=== PATIENT | female | born 1970 | race Caucasian/White ===

== ENCOUNTER → 2017-01-26 | Outpatient (CLI) | payer OTHER ==
--- NOTE | 2017-01-26 16:15 | US ---
EXAMINATION TYPE: US transvaginal DATE OF EXAM: 01/26/2017 2:50 PM COMPARISON: NONE CLINICAL HISTORY: R10.2 Pelvic/perineal Pain,. Hysterectomy, RLQ TECHNIQUE: TV Date of LMP: unknown EXAM MEASUREMENTS: Right Ovary: 2.3 x 1.8 x 1.7cm Left Ovary: 3.8 x 3.0 x 2.4cm TECHNOLOGIST IMPRESSION: 1. Uterus: surgically absent 2. Endometrium: surgically absent 3. Right Ovary: 1.4cm simple cyst seen 4. Left Ovary: 2.3cm septated cyst seen 5. Bilateral Adnexa: wnl 6. Posterior cul-de-sac: wnl Uterus is surgically absent. No free fluid is seen in pelvic cul-de-sac. Both ovaries are identified. Within left ovary there is 2.4 x 2.3 x 2.2 cm cyst with thin septation. No suspicious solid nodularity or vascularity is present. There is more simple 1.4 cm cyst in the pe riphery of the right ovary. IMPRESSION: A 2.4 cm thin septated cyst left ovary is noted.
--- NOTE | 2017-01-28 11:00 | MM ---
Reason for exam: clinical finding. Last mammogram was performed 6 months ago. History: Patient history of breast cancer and history of other cancer. Family history of breast cancer in grandmother, breast cancer in grandmother at age 58, and breast cancer in mother at age 38. Cyst aspiration of both breasts, August 07, 2016. Lumpectomy of the right breast, 2006. Excisional biopsy of the left breast, 1989. Physical Findings: Nurse Summary: 0.5-1cm nodule in the right breast at 12 o'clock and 8 o'clock at nipple, and a 0.5-1.5cm nodule in the left breast at 12 o'clock, 3 o'clock and 8 o'clock (nurse kp). [facility] Mammo w CAD [facility] Bilateral CC and MLO view(s) were taken. Prior study comparison: July 21, 2016, mammogram, performed at [facility]. July 21, 2016, ultrasound. The breast tissue is extremely dense which could obscure a lesion on mammography. Previous mammotome biopsy in the right breast. Multiple BB's appear to correspond to previous nodules, no increase in size in nodules. No significant new findings when compared with previous films. These results were verbally communicated with the patient on 01/28/17. ASSESSMENT: Benign, BI-RAD 2 RECOMMENDATION: Ultrasound of both breasts in 3 months.
--- NOTE | 2017-01-28 11:08 | USB ---
Reason for exam: clinical finding. History: Patient history of breast cancer and history of other cancer. Family history of breast cancer in grandmother, breast cancer in grandmother at age 58, and breast cancer in mother at age 38. Cyst aspiration of both breasts, August 07, 2016. Lumpectomy of the right breast, 2006. Excisional biopsy of the left breast, 1989. US Breast BILAT Right breast ultrasound including all four quadrants, the retroareolar region and axilla demonstrates several cystic lesions measuring 0.4 x 0.4 x 0.4cm at 2 o'clock, 0.3 x 0.3 x 0.2cm at 3 o'clock, 0.5 x 0.5 x 0.3cm at 5 o'clock, 0.8 x 1.2 x 0.4cm at 6 o'clock with septation, 0.2 x .3 x 0.2cm at 10 o'clock, 0.4 x 0.4 x 0.4cm at the nipple and a 0.7 x 0.5 x 0.6cm mixed, cystic lesion at the nipple for which a follow up is recommended. Left breast ultrasound including all four quadrants, the retroareolar region and axilla demonstrates several cystic lesions measuring 0.7 x 0.6 x 0.4cm at 1 o'clock with septation, 0.5 x 0.5 x 0.5cm at 1 o'clock, 2.4 x 1.3 x 1.0cm at 2 o'clock with cluster, 1.0 x 0.6 x 0.5cm at 3 o'clock, 0.6 0.6 x 0.4cm at 4 o'clock, 0.7 x 0.7 x 0.4cm at 7 o'clock with septation, 0.8 x 0.7 x 0.7cm at 9 o'clock, 0.7 x 0.9 x 0.4cm, complex, 1.3 x 1.3 x 0.9cm at 11 o'clock and a 0.9 x 0.9 x 0.7cm mixed lesion at 10 o'clock. These results were verbally communicated with the patient on 01/28/17. ASSESSMENT: Probably benign, BI-RAD 3 RECOMMENDATION: Ultrasound of both breasts in 3 months.
== END ==
LOC: RADMAMWWP 13:16
PROVIDERS: ATTEND Family Medicine
DX: N63 Unspecified lump in breast (principal); N83.202 Unspecified ovarian cyst, left side
CPT/HCPCS: 76830; 76641; G0204

== ENCOUNTER → 2017-05-01 | Outpatient (CLI) | payer OTHER ==
--- NOTE | 2017-05-01 08:36 | US ---
EXAMINATION TYPE: US transvaginal DATE OF EXAM: 05/01/2017 COMPARISON: Previous study dated 01/26/2017. CLINICAL HISTORY: N83.202 OVARIAN CYST. Hysterectomy, known ovarian cysts, on Tamoxifen, LLQ pain TECHNIQUE: TV Date of LMP: unknown EXAM MEASUREMENTS: Right Ovary: 2.9 x 1.9 x 1.9 cm Left Ovary: 3.0 x 2.5 x 2.1 cm 1. Uterus: surgically absent 2. Endometrium: Surgically absent 3. Right Ovary: 1.6cm simple cyst seen. Previously measured 1.4 cm. 4. Left Ovary: 2.3cm simple cyst seen. Previously measured 2.3 cm but was septated 5. Bilateral Adnexa: wnl 6. Posterior cul-de-sac: wnl IMPRESSION: 1. STATUS POST PARTIAL HYSTERECTOMY. 2. BILATERAL OVARIAN CYSTS.
--- NOTE | 2017-05-04 07:05 | USB ---
Reason for exam: clinical finding. History: Patient history of breast cancer and history of other cancer. Family history of breast cancer in grandmother, breast cancer in grandmother at age 58, and breast cancer in mother at age 38. Cyst aspiration of both breasts, August 07, 2016. Lumpectomy of the right breast, 2006. Excisional biopsy of the left breast, 1989. Indicated problem(s): palpable abnormality in both breasts. Physical Findings: Nurse Summary: A 0.5-1cm palpable in the left breast at 6:30, 7, 9, 12 o'clock and nipple, right breast at 6, 9:30, 11:30, 1 o'clock and nipple (nurse dw). US Breast BILAT Right breast ultrasound includes all four quadrants, the retroareolar region and axilla. Finding demonstrate a 0.6 x 1.1 x 0.4cm mixed lesion at 5 o'clock. Left breast ultrasound includes all four quadrants, the retroareolar region and axilla. Finding demonstrate a 0.7 x 0.6 x 0.5cm oval, cystic lesion at 3 o'clock, a 0.6 x 0.6 x 0.4cm oval cystic lesion at 5 o'clock, a 0.7 x 0.7 x 0.7cm oval mixed lesion at 9 o'clock, a 1.1 x 1.2 x 0.9cm oval mixed lesion at 10 o'clock, a 0.8 x 0.8 x 0.5cm oval lesion at 11 o'clock and multiple cysts posterior nipple. These results were verbally communicated with the patient and result sheet given to the patient on 05/01/17. ASSESSMENT: Incomplete: need additional imaging evaluation, BI-RAD 0 RECOMMENDATION: Breast MRI of both breasts.
== END | disposition home or self-care (01) ==
LOC: RADUSWWP 06:47
PROVIDERS: ATTEND Family Medicine
DX: N83.201 Unspecified ovarian cyst, right side (principal); N83.202 Unspecified ovarian cyst, left side; N63 Unspecified lump in breast; R92.2 Inconclusive mammogram; Z90.710 Acquired absence of both cervix and uterus
CPT/HCPCS: 76830

== ENCOUNTER → 2017-05-21 | Outpatient (CLI) | payer OTHER ==
--- NOTE | 2017-05-22 13:35 | BMR ---
EXAMINATION TYPE: MR breast BILAT wo/w con DATE OF EXAM: 05/21/2017 COMPARISON: Ultrasound breast 05/01/2017, mammogram 01/26/2017 HISTORY: abn finding lump in breast Left TECHNIQUE: A series of fat and water weighted images in the long and short axis views of both breasts are obtained in conjunction with dynamic contrast MRI with subtraction technique. The patient was i njected with 14 mL intravenous MultiHance gadolinium contrast. Three-dimensional and additional pos tprocessing imaging is created on independent workstation and reviewed during official interpretation of this study. FINDINGS: Left breast: Multiple T2 hyperintense foci are present within the left breast varying sizes , the largest in the anterior breast at the 12:00 position of the left breast measures approximately 13 mm. In the central portion of the left breast there is an additional T2 hyperintense focus measuri ng 15 mm. Posterior breast shows T2 hyperintense focus measuring 14 mm. There are approximately 15-20 foci present. No lymphadenopathy. No internal mammary abnormal node evident. Intramammary node prese nt inferiorly and laterally. Fibroglandular elements noted. Right breast: Subareolar right breast shows a focus of masslike enhancement measuring approximately 6 mm, 1 cm from the nipple. Fibroglandular signal is present. There is no evident internal mammary or axillary adenopathy. Susceptibility artifact present from prior procedure in the outer breast. T2 hyp erintense foci present centrally compatible with cysts at 6:00. IMPRESSION: Left breast benign, BI-RADS 2 Right breast known carcinoma, BI-RADS 6, recommend second look ultrasound of the subareolar right kalin ast.
== END | disposition home or self-care (01) ==
LOC: RADMRIMAIN 09:16
PROVIDERS: ATTEND Physician Assistant
DX: C50.911 Malignant neoplasm of unspecified site of right female breast (principal); Z80.3 Family history of malignant neoplasm of breast; Z85.3 Personal history of malignant neoplasm of breast
CPT/HCPCS: 77059; 0159T; A9577

== ENCOUNTER → 2017-06-05 | Outpatient (CLI) | payer OTHER ==
--- NOTE | 2017-06-05 10:56 | USB ---
Reason for exam: additional evaluation requested from abnormal screening. History: Patient history of breast cancer and history of other cancer. Family history of breast cancer in grandmother, breast cancer in grandmother at age 58, and breast cancer in mother at age 38. Cyst aspiration of both breasts, August 07, 2016. Lumpectomy of the right breast, 2006. Excisional biopsy of the left breast, 1989. US Breast RT Right breast ultrasound includes all four quadrants, the retroareolar region and axilla. Finding demonstrates a 0.6 x 0.5 x 1.4cm oval, mixed lesion at 5 o' clock versus 8 x 4 x 12mm on 01/26/17 for which a 6 month follow up is recommended, a 0.5 x 0.5 x 0.4cm round to oval, hypoechoic lesion at the posterior nipple, this may correspond to the MRI finding and therefore, biopsy is recommended, an adjacent area that elongates into a fat lobule, and a 0.6 x 0.4 x 0.5cm oval, hypoechoic lesion at 6 o'clock, likely cystic. These results were verbally communicated with the patient and result sheet given to the patient on 06/05/17. ASSESSMENT: Suspicious, BI-RAD 4 RECOMMENDATION: Surgical consultation and ultrasound core biopsy of the right breast. (subareolar) which may correspond to the enhancing MRI finding. Called Dr. Sanchez with mammographic findings and has scheduled an appointment for the patient for 06/09/17 at 11:[address] Rolon. PRELIMINARY REPORT CALLED AND FAXED TO DR. ROLON ON 06/05/17/ANAND. LUNA
== END | disposition home or self-care (01) ==
LOC: RADUSWWP 08:36
PROVIDERS: ATTEND Family Medicine
DX: R92.8 Other abnormal and inconclusive findings on diagnostic imaging of breast (principal)

== ENCOUNTER → 2017-07-01 | Day surgery (SDC) | payer OTHER ==
[2017-07-01 11:50] VITALS: RESP 16; BMI 27.4
[2017-07-01 13:21] VITALS: BP 128/87; PULSE 74; TEMP 98.5
--- NOTE | 2017-07-01 15:20 | USB ---
EXAMINATION TYPE: US biopsy breast VAD RT, Postbiopsy diagnostic mammo RT wo CAD DATE OF EXAM: 07/01/2017 CLINICAL HISTORY: 47-year-old female referred for biopsy of abnormal MRI finding. TECHNIQUE: Ultrasound guided core biopsy of the right breast. COMPARISON: 06/05/2017, 05/21/2017, and 01/26/2017 FINDINGS: The procedure of ultrasound guided core biopsy was explained to the patient. Benefits, alt ernatives, and risks were discussed. An informed consent was then obtained. The tentative target area in the 12:00 subareolar region appeared even more cystic on the present exa m and was felt unlikely to correlate to the abnormal MRI finding. Additional scanning in the 6:00 subareolar region shows a 6 mm ovoid hypoechoic lesion which likely c orresponds to the MRI finding. This is targeted for biopsy. The patient was placed in supine positioning for imaging and for the procedure. The overlying skin w as prepped and draped in usual sterile fashion. Lidocaine was used as anesthetic into the skin and s ubcutaneous tissue up to area of concern in the breast. Under ultrasound guidance, a 13-gauge vacuum-assisted mammotome Elite biopsy gun device was used to o btain 3 core samples. Following this, a ribbon clip was left in lesion. The patient tolerated the procedure well without any immediate complication. The patient was kept in the radiology department for short stay after the procedure and then discharged home in stable condi tion. Postbiopsy mammogram shows ribbon clip in the subareolar region. IMPRESSION: Successful, uncomplicated ultrasound guided core biopsy of the 6 mm subareolar lesion which is felt t o correspond to the MRI abnormality. Full pathology results to follow. RECOMMENDATION: 1. Follow-up pathology. 2. In the event of benign results, follow-up right breast ultrasound in 6 months for the 5:00 lesion seen on 06/05/2017 ultrasound.
== END ==
LOC: RADUSWWP 11:19
PROVIDERS: ATTEND Surgery
DX: D24.1 Benign neoplasm of right breast (principal); N60.31 Fibrosclerosis of right breast; R92.8 Other abnormal and inconclusive findings on diagnostic imaging of breast; N60.21 Fibroadenosis of right breast; N64.89 Other specified disorders of breast; Z88.8 Allergy status to other drugs, medicaments and biological substances; Z91.041 Radiographic dye allergy status
CPT/HCPCS: 88305; 19083; G0206; A4648; J2001

== ENCOUNTER → 2018-01-04 | Outpatient (CLI) | payer BC ==
[2018-01-04 09:43] LABS: Anion Gap 12 mmol/L; Basophils # (A) 0.1 k/uL (0-0.2); Basophils % (A) 1 %; Blood Urea Nitrogen 16 mg/dL (7-17); Calcium 9.9 mg/dL (8.4-10.2); Carbon Dioxide 20 mmol/L (22-30); Chloride 106 mmol/L (98-107); Eosinophils # (A) 0.1 k/uL (0-0.7); Eosinophils % (A) 1 %; Glucose 119 mg/dL (74-99); HCT 49.2 % (34.0-46.0); HGB 15.1 gm/dL (11.4-16.0); Lymphocytes # (A) 2.2 k/uL (1.0-4.8); Lymphocytes % (A) 23 %; MCH 32.5 pg (25.0-35.0); MCHC 30.6 g/dL (31.0-37.0); MCV 106.2 fL (80.0-100.0); Macrocytosis Moderate; Mean Platelet Volume 7.1; Monocytes # (A) 0.6 k/uL (0-1.0); Monocytes % (A) 6 %; Neutrophils # (A) 6.5 k/uL (1.3-7.7); Neutrophils % (A) 67 %; Platelet Count 242 k/uL (150-450); Potassium 4.8 mmol/L (3.5-5.1); RBC 4.63 m/uL (3.80-5.40); RDW 12.7 % (11.5-15.5); Sodium 138 mmol/L (137-145); WBC 9.7 k/uL (3.8-10.6)
--- NOTE | 2018-01-04 09:45 | XR ---
EXAMINATION TYPE: XR chest 2V DATE OF EXAM: 01/04/2018 COMPARISON: NONE TECHNIQUE: PA and lateral views submitted. HISTORY: Presurgical FINDINGS: The lungs are clear and there is no pneumothorax, pleural effusion, or focal pneumonia. Arthropathy of the shoulders. Curvature the spine. No overt failure. Hyperinflation suggests COPD. Degenerative change of the spine. IMPRESSION: 1. No acute process.
[2018-01-04 09:52] LABS: INR 1.1 (<1.2); Partial Thromboplastin Time 23.5 sec (22.0-30.0); Prothrombin Time 10.7 sec (9.0-12.0)
[2018-01-04 10:04] LABS: Appearance,Urine Cloudy (Clear); Bacteria,Urine Rare /hpf; Bilirubin,Urine Negative (Negative); Blood,Urine Negative (Negative); Color,Urine Yellow; Glucose,Urine (UA) Negative (Negative); Hyaline Casts,Urine 36 /lpf (0-2); Ketones,Urine Trace (Negative); Leukocyte Esterase,Urine Negative (Negative); Mucus,Urine Rare /hpf; Nitrite,Urine Negative (Negative); PH, Urine 5.5 (5.0-8.0); Protein,Urine Trace (Negative); RBC,Urine 1 /hpf (0-5); Specific Gravity,Urine 1.016 (1.001-1.035); Squamous Epithelial Cell,Urine 6 /hpf (0-4); WBC,Urine 1 /hpf (0-5)
== END | disposition home or self-care (01) ==
LOC: LABWHC1 08:41
PROVIDERS: ATTEND Orthopaedic Surgery Orthopaedic Surgery of the Spine
DX: Z01.818 Encounter for other preprocedural examination (principal); Z01.812 Encounter for preprocedural laboratory examination; M43.10 Spondylolisthesis, site unspecified
CPT/HCPCS: 36415; 71046; 80048; 81001; 85025; 85610; 85730; 86850; 86900; 86901; 87070; 93005

== ENCOUNTER 2018-01-11 13:00 | Inpatient (IN) | payer BC, OTHER ==
[2018-01-04 11:36] VITALS: BMI 27.8
[2018-01-13] MEDS ORDERED: ceFAZolin IN SWFI 2 GM/20 ML SYRINGE IVP ONE (05:00)
[2018-01-13] MEDS ORDERED: BACITRACIN 50,000 UNIT, POLYMYXIN B 500,000 UNIT in SODIUM CHLORIDE 0.9% IRRIGATIO 1,00... IRRIGATION ONE (05:00)
[2018-01-13] MEDS ORDERED: LIDOCAINE 1% 20 ML VIAL (10MG/ML) FOR IV START INTRADERMA PRN (06:53)
[2018-01-13] MEDS ORDERED: ONDANSETRON 4 MG/2 ML VIAL IVP ONE (06:53)
[2018-01-13] MEDS ORDERED: SCOPOLAMINE 1.5MG/72HR PATCH TRANSDERM ONE (06:53)
[2018-01-13] MEDS: LACTATED RINGERS 1,000 ML IV SCH (10:53)
[2018-01-13] MEDS ORDERED: GLYCOPYRROLATE 0.2 MG/ML 2 ML VIAL ONE (13:07)
[2018-01-13] MEDS ORDERED: MIDAZOLAM 2 MG/2 ML VIAL ONE (13:07)
[2018-01-13] MEDS ORDERED: ePHEDrine SULFATE/0.9% NACL/PF 50 MG/5 ML SYRINGE IV ONE (13:07)
[2018-01-13] MEDS ORDERED: PROPOFOL 10 MG/ML 20 ML VIAL IV ONE (13:07)
[2018-01-13] MEDS ORDERED: KETAMINE 10 MG/ML 20 ML VIAL ONE (13:07)
[2018-01-13] MEDS ORDERED: SUCCINYLCHOLINE CHLORIDE 100 MG/5 ML SYR IV ONE (13:07)
[2018-01-13] MEDS ORDERED: NEOSTIGMINE 1 MG/ML 10 ML VIAL ONE (13:07)
[2018-01-13] MEDS ORDERED: HYDROmorphone (PF) 1 MG/ML ONE (13:07)
[2018-01-13] MEDS ORDERED: fentaNYL (PF) 50 MCG/ML 2 ML AMP ONE (13:07)
[2018-01-13] MEDS ORDERED: PHENYLEPHRINE-0.9% NACL SYG 1 MG/10 ML SYRINGE ONE (13:07)
[2018-01-13] MEDS ORDERED: ROCURONIUM BROMIDE 10 MG/ML 10 ML VIAL IV ONE (13:07)
[2018-01-13] MEDS ORDERED: LIDOCAINE 1% INJ 10MG/ML (20 ML MDV) ONE (13:07)
[2018-01-13] MEDS ORDERED: BUPIVACAINE (PF) 0.25% 30 ML VIAL SQ ONE (14:00)
[2018-01-13] MEDS ORDERED: GELATIN SPONGE,ABSORB (LARGE) 1 EACH SPONGE TOPICAL ONE (14:01)
[2018-01-13] MEDS ORDERED: THROMBIN (BOVINE) 5,000 UNIT VIAL TOPICAL ONE (14:01)
[2018-01-13] MEDS ORDERED: LACTATED RINGERS 1,000 ML IV ONE (15:13)
[2018-01-13] MEDS ORDERED: BENZOCAINE/MENTHOL LOZENG 1 EACH LOZENGE MUCOUS MEM PRN (16:01)
[2018-01-13] MEDS ORDERED: HYDROcodone/APAP 5-325MG 1 EACH TAB PO PRN (16:01)
[2018-01-13] MEDS ORDERED: DIAZEPAM 5 MG TAB PO PRN (16:01)
[2018-01-13] MEDS ORDERED: ONDANSETRON 4 MG/2 ML VIAL IVP PRN (16:01)
[2018-01-13] MEDS ORDERED: HYDROmorphone 0.5 MG/0.5 ML SYRINGE IVP PRN (16:01)
[2018-01-13] MEDS ORDERED: MAGNESIUM HYDROXIDE 2,400 MG/10 ML CUP PO PRN (16:01)
[2018-01-13] MEDS ORDERED: diphenhydrAMINE 25 MG CAP PO PRN (16:04)
--- NOTE | 2018-01-13 16:10 | P.OP ---
Date of Procedure: 01/13/18 Preoperative Diagnosis: Spondylolisthesis L4 5 grade 2 Spinal stenosis L4 5 Disc protrusion L4 5 Low back pain with lower extremity radiculopathy Postoperative Diagnosis: Same Anesthesia: GETA Pathology: none sent Condition: stable Disposition: PACU Description of Procedure: DESCRIPTION OF PROCEDURE(S): BRIEF OPERATIVE NOTE Preoperative Diagnosis: Grade 2 spondylolisthesis L4 5, spinal stenosis L4 5, disc protrusion L4 5, degenerative disc disease with low back pain and lower extremity Postoperative Diagnosis: Same Procedure: Laminectomy and decompression bilaterally L4 5 Minimally invasive Posterior decompression and facet fusion L4 5 Minimally invasive Transforaminal lumbar interbody fusion for a 360 fusion L4 5 Discectomy for decompression L4 5 Placement of interbody graft L4 5 Harvesting of bone marrow aspirate via The ankle at L4 Local autogenous bone grafting Use of Cell Saver Use of bone graft extenders Surgeon: Dr. Guardado Assistant Media Buyer: Lauro THORPE who is present throughout the entire the case persistence during positioning, dissection, exposure, visualization, and all crucial elements of the case as well as closure. Anesthesia: General anesthesia per Dr. Arce Estimated blood loss: Approximately 200 mL Complications: None apparent Components implanted: K2M Kirby minimally invasive pedicle screw system with 4 screws measuring 6.5 x 45 mm with 2 rods measuring 45 mm and one O[place]go interbody titanium cage with osteal Camp bone sponge and DBX bone fibers to supplemental local autogenous bone graft and bone marrow aspirate Disposition: To recovery room in good stable condition. OPERATIVE INDICATIONS The patient has had long-standing issues in their lower back and lower extremities. She is found have a dynamic spondylolisthesis at L4 5 with significant stenosis. These imaging findings correlated well with her low back and lower extremity symptoms. The patient has been through conservative treatment. She is not having prolonged benefit despite aggressive conservative treatment. We discussed various treatment options including surgery, and the patient wishes to proceed with surgery We discussed the risk, patient's alternatives and benefits of surgery including but not limited to, risk of bleeding risk of infection, risk of need for further surgery, risk of decreased , loss of motion, muscle function, malunion nonunion, hardware failure, nerve damage, paralysis, heart attack, blindness and . OPERATIVE SUMMARY After discussing all the risks, patient alternatives and benefits at length, the patient elected to proceed with surgical intervention, signed informed consent, and presented for their procedure. The patient was seen and examined in the preoperative holding area and the surgical site was marked. The patient was given antibiotics and brought to the operating room. The patient was sedated and intubated by anesthesia in standard fashion. The patient was positioned on to the operating room table in a prone position on the appropriate frame which was well-padded and well molded. We were careful to pad any bony prominences and pressure points. We were careful to maintain the patient's cervical spine and good neutral alignment and position throughout. The patient was prepped and draped in a normal standard fashion. An appropriate timeout and keystone protocol performed. We were able to proceed with the surgery. The local wound area was infiltrated with local anesthetic. I was able utilize C-arm guidance to establish appropriate position over the pedicles bilaterally at the appropriate levels at L4 5. With the appropriate levels confirmed was able to make small stab incisions over the appropriate pedicle sites bilaterally. Utilizing C-arm in his house able to establish a Jamshidi needle over the lateral aspect of the pedicle and advanced the trocar into the pedicle being careful not to breech superiorly inferiorly medially or laterally. Position was confirmed regularly with AP and lateral images on C- arm. I was able to establish the trocar into the pedicle appropriately into the posterior aspect of the vertebral body bilaterally at the appropriate levels. This was done at each of the pedicle positions and each of the vertebrae of L4 and 5. I was able place the guidewire into the trocar and into the vertebral body appropriately under C-arm guidance. Dissection was taken down over the wire to the appropriate starting position for the screw placed. The appropriate length screw was chosen, threaded over the guidewire and screwed appropriately into the pedicle and vertebral body under C-arm guidance in excellent alignment and position with good bony purchase. This is done at each of the screw sites at the appropriate levels of L4 and L5. With the screws intact I extended the incision to connect the screw hole sites on the most symptomatic side on the left. I dissected down to establish access over the pars and lamina to the base of the spinous process. I was able to expose the facet joint. The capsule the facet was taken down and showed some facet arthrosis at the joint. I was able to use a combination of curettes and Kerrison rongeurs and a high-speed drill to take down the facet joint and do a facetectomy. Partial laminectomy was also performed. I was able get excellent foraminal decompression and central decompression with undermining across midline to perform a laminectomy centrally and contralaterally. As able get good central decompression. The ligamentum flavum was taken down to further decompress centrally and at bilateral neural foramen at L4 and L5. I was able to expose the disc space and visualize the traversing nerve root. Note was made of some disc protrusion at the level causing further compression of the nerve root. I was able to establish a annulotomy at the appropriate level of L4 and L5 protecting soft tissue and neural structures. Note was made of some disc desiccation at the disc. I performed a complete discectomy with accommodation of curettes and rasps and scrapers. The discectomy allowed for further decompression as well. I was able get good endplate preparation at the disc space. I sized for the appropriate size interbody spacer protecting the soft tissue and neural structures. The wound was copiously irrigated and suctioned dry. There is no evidence of any dural tear or leak. I was able to pack the disc space with local autogenous bone graft as well as a small amount of bone graft which was also placed into the interbody cage itself. Protecting the soft tissue structures and neural structures I was able place the interbody cage in good alignment and good position with good fit and fill at the interbody space. His issues was confirmed with C-arm guidance. Good hemostasis maintained. There is no evidence of any dural tear or leak. The wound was irrigated and suctioned dry. With the hardware intact, intraoperative C-arm imaging was again taken which showed good alignment and position of the hardware at the appropriate levels at L4 and L5. We were then able to measure, contour and place the rods and appropriate hardware bilaterally. I was able to place capcrews, tighten them down, and torque them with the torque screwdriver appropriately. With this intact I was able to place the local autogenous bone graft with additional bone graft enhancer as necessary into the posterior lateral gutters and over the decorticated facet joints. I was able get good reduction of the listhesis at L4 5 with placement of the azucena. The remainder of the bone graft was placed over the facet joint on the contralateral side after taking down the facet joint capsule. With the bone graft intact, a stable construct, and good decompression at the appropriate levels, we were able to proceed with closure. Good hemostasis was maintained. There is no evidence of dural tear or leak. The fascia was closed for a watertight closure. he subcuticular tissue was closed with absorbable suture. The wound was cleaned and dried and dressed with the appropriate dressing. The drapes were broken down. The patient was gently rolled back onto their hospital bed being careful to maintain their cervical spine and good neutral alignment and position. They were woken up by anesthesia, extubated, and brought to the recovery room in good stable condition. The patient will be admitted to the hospital for appropriate postoperative care , medical management and monitoring. We will continue to follow them closely about the postoperative course.
[2018-01-13] MEDS ORDERED: diphenhydrAMINE 50 MG/ML 1 ML VIAL IVP ONE (16:28)
--- NOTE | 2018-01-13 16:37 | XR ---
Lumbar spine HISTORY: Lumbar fusion 2 intraoperative C-arm images document the procedure.
--- NOTE | 2018-01-13 16:38 | FL ---
Fluoroscopy HISTORY: Lumbar fusion 53 seconds fluoroscopy time supplied to the referring clinician. 2 intraoperative C-arm images docum ent the procedure. See dictated report from orthopedic surgery.
[2018-01-13] MEDS: HYDROmorphone 0.5 MG/0.5 ML SYRINGE IVP PRN ×4 (17:53→23:11)
[2018-01-13] MEDS ORDERED: ATORVASTATIN 20 MG TAB PO SCH (21:00)
[2018-01-13] MEDS ORDERED: CITALOPRAM HYDROBROMIDE 20 MG TAB PO SCH (21:00)
[2018-01-13] MEDS ORDERED: LISINOPRIL 10 MG TAB PO SCH (21:00)
[2018-01-13] MEDS ORDERED: TAMOXIFEN 10 MG TAB PO SCH (21:00)
[2018-01-13] MEDS: HYDROcodone/APAP 5-325MG 1 EACH TAB PO PRN (21:56)
[2018-01-13] MEDS: SODIUM CHLORIDE 0.9% 1,000 ML IV SCH (23:13)
[2018-01-14] MEDS ORDERED: LORazepam 0.5 MG TAB PO PRN (00:16)
[2018-01-14] MEDS: ceFAZolin IN SWFI 2 GM/20 ML SYRINGE IVP SCH ×2 (01:07→08:49)
[2018-01-14] MEDS: HYDROcodone/APAP 5-325MG 1 EACH TAB PO PRN ×2 (01:38→07:17)
[2018-01-14] MEDS: HYDROmorphone 0.5 MG/0.5 ML SYRINGE IVP PRN ×2 (04:25→08:46)
--- NOTE | 2018-01-14 04:58 | CONS ---
CONSULTATION DATE OF CONSULTATION: 01/12/18. REASON FOR CONSULTATION: Advice regarding hypertension, multiple medical issues requested by Dr. Guardado. HISTORY OF PRESENT ILLNESS: This is a 47-year-old woman with past medical history of hypertension, history of breast surgery, history of anxiety, depression being followed by Dr. Sanchez in the outpatient setting. The patient underwent a laminectomy decompression L4-[address] Guardado. There is no history of fever, rigors or chills. No history of headache, loss of consciousness, seizures at this time. PAST MEDICAL HISTORY: Hypertension, history of breast cancer, anxiety, depression, section. MEDICATIONS: Prior to admission include: 1. Diphenhydramine. 2. Benadryl 25 mg daily p.r.n. 3. Nolvadex 20 mg q.h.s. 4. Prinivil 10 mg q.h.s. 5. Motrin 800 mg daily p.r.n. 6. Celexa 20 mg daily. 7. Lipitor 20 mg. ALLERGIES: ARE IODINATED CONTRAST DYES AND FLEXERIL. FAMILY HISTORY: History of breast cancer in the family. SOCIAL HISTORY: History of smoking, history of THC. Occasional alcohol intake. REVIEW OF SYSTEMS: ENT: No diminished hearing or vision. Cardiovascular: No angina. No palpitations. Respiratory: No cough or hemoptysis. GI no nausea. no dysuria. Nervous system: No numbness, weakness. Allergy/Immunology: No asthma or hayfever. Musculoskeletal: As mentioned earlier. HEMATOLOGY/ONCOLOGY: No history of anemia. Endocrine: No history of diabetes or hypothyroidism. Constitutional: As mentioned earlier. Dermatology: Negative. Rheumatology: Negative. Psychiatric: As mentioned earlier. PHYSICAL EXAMINATION: Alert and oriented x3. Pulse is 94, blood pressure 103/56. Temp is normal. Pulse ox 98% on room air. HEENT conjunctivae normal. Oral mucosa moist. Neck is no jugular venous distention. No carotid bruit. No lymph node enlargement. Cardiovascular: S1, S2 muffled. Respiratory: Breath sounds diminished in the bases. No rhonchi. No crackles. ABDOMEN: Soft, nontender. No mass palpable. Legs are no edema. No swelling. Central nervous system: Higher functions as mentioned earlier. Moves all four extremities. No focal deficits. Lymphatics: No lymph nodes palpable in the neck, axillae or groin. Skin: No ulcer, rash or bleeding. Examination of the back status post surgery. LABS: MCV 106.2, glucose 119. UA was noted previously the preop labs. ASSESSMENT: 1. Status post lumbar laminectomy and decompression, bilateral L4-5. 2. Hypertension. 3. History of breast cancer. 4. History of juvenile asthma. 5. History of anxiety, depression. 6. History of nicotine dependence. 7. History of THC. RECOMMENDATION AND DISCUSSION: This 47-year-old woman who presented with multiple medical issues at this time we will monitor the patient closely. Continue the current medications, management and symptomatic treatment. Otherwise at this time I recommend continue with current medications. Incentive spirometry. DVT prophylaxis. I would also recommend Ativan p.r.n. for anxiety related symptoms. Otherwise I would recommend to follow the patient closely and recommend close follow up with Dr. Sanchez in the outpatient setting. We will follow the patient closely with you. Thank you Dr. Guardado for letting us participate in the care of this patient. MMODL / IJN: [id number] /
[2018-01-14] MEDS: SODIUM CHLORIDE 0.9% 1,000 ML IV SCH (07:11)
[2018-01-14] MEDS: LACTATED RINGERS 1,000 ML IV SCH (07:12)
[2018-01-14 07:24] LABS: Anion Gap 8 mmol/L; Blood Urea Nitrogen 8 mg/dL (7-17); Calcium 8.6 mg/dL (8.4-10.2); Carbon Dioxide 22 mmol/L (22-30); Chloride 102 mmol/L (98-107); Glucose 98 mg/dL (74-99); Potassium 3.7 mmol/L (3.5-5.1); Sodium 132 mmol/L (137-145)
[2018-01-14 07:30] LABS: Basophils # (A) 0.1 k/uL (0-0.2); Basophils % (A) 1 %; Eosinophils # (A) 0.1 k/uL (0-0.7); Eosinophils % (A) 1 %; HCT 37.6 % (34.0-46.0); Lymphocytes # (A) 1.9 k/uL (1.0-4.8); Lymphocytes % (A) 15 %; MCH 32.9 pg (25.0-35.0); MCHC 31.8 g/dL (31.0-37.0); MCV 103.5 fL (80.0-100.0); Macrocytosis Slight; Monocytes # (A) 0.4 k/uL (0-1.0); Monocytes % (A) 4 %; Neutrophils # (A) 9.8 k/uL (1.3-7.7); Neutrophils % (A) 78 %; Platelet Count 213 k/uL (150-450); RBC 3.63 m/uL (3.80-5.40); RDW 12.9 % (11.5-15.5); WBC 12.5 k/uL (3.8-10.6)
[2018-01-14 07:37] LABS: HGB 11.9 gm/dL (11.4-16.0)
[2018-01-14 07:54] VITALS: BP 106/64; PULSE 89; RESP 14; TEMP 98.6
[2018-01-14] MEDS ORDERED: SENNOSIDES-DOCUSATE SODIUM 1 EACH TAB PO SCH (09:00)
--- NOTE | 2018-01-14 10:02 | P.DS ---
Providers Date of admission: 01/13/18 10:03 Attending physician: Vito Guardado Consults: 01/13/18 16:01 Consult Physician Routine Consulting Provider: Danita Martinez Consult Reason/Comments: Medical management Do you want consulting provider notified?: Yes Primary care physician: Clarisse Randolph [facility] Course: The patient presented on the day of admission as per her operative note. She underwent lumbar decompression and fusion at L4 5 for her spondylolisthesis with spinal stenosis and lower extremity radiculopathy and back pain. She has been doing well today. She had some trouble sleeping but was a was able to get some sleep on and off through the night. She has been able to get up out of bed and has been able to ambulate independently to the bathroom. She has been able to void freely. She is tolerating her diet. Her pain is controlled with medication. Physical Exam The incision site is clean dry and intact. There is no erythema no drainage. There is no purulence no evidence of infection. There is some small drainage on the dressing but it is still sealed and does not appear to be actively draining. There is no erythema. Abdomen soft and nontender. Chest has good excursion with deep inspiration and expiration. The patient has active and passive range of motion intact at the upper and lower extremities. There is no acute change in neurologic status. She has sustained dorsal flexion plantar flexion and extensor hallucis longus intact. Hospital Course Postoperative day #1 status post minimally invasive decompression and fusion at L4 5 for her spondylolisthesis with spinal stenosis. The patient has been making very good progress postoperatively. They have completed the prophylactic antibiotics without any signs or symptoms of infection. The patient has been able to advance their diet, and is tolerating diet adequately. The pain was initially controlled with IV medications and is now controlled appropriately with oral medications. The patient has been able to increase their mobilization well overnight and this morning and she continued to make good improvement. The patient has progressed appropriately. I think they are in good stable condition for discharge today. They will be sent home with appropriate prescriptions. I answered their questions to the best of my ability in a language that they can understand and they are agreeable with the plan. They will follow up as directed in approximately 2 weeks or sooner if she is having any problems. Patient Condition at Discharge: Good Plan - Discharge Summary Discharge Rx Participant: Yes New Discharge Prescriptions: New Diazepam [Valium] 5 mg PO TID PRN #90 tab PRN Reason: Spasms Hydrocodone/Acetaminophen [Hydrocodon-Acetaminoph 7.5-325] 1 each PO Q8HR PRN #90 tablet PRN Reason: Severe Pain traMADol HCL [Ultram] 50 mg PO Q8HR PRN #90 tab PRN Reason: Pain No Action diphenhydrAMINE HCL [Benadryl] 25 mg PO DAILY PRN PRN Reason: Allergy Symptoms Ibuprofen [Motrin] 800 mg PO DAILY PRN PRN Reason: Pain Citalopram Hydrobromide [CeleXA] 20 mg PO HS Tamoxifen [Nolvadex] 20 mg PO HS Lisinopril [Prinivil] 10 mg PO HS Atorvastatin [Lipitor] 20 mg PO HS Discharge Medication List Citalopram Hydrobromide [CeleXA] 20 mg PO HS 06/05/17 [History] Ibuprofen [Motrin] 800 mg PO DAILY PRN 06/05/17 [History] Tamoxifen [Nolvadex] 20 mg PO HS 06/05/17 [History] diphenhydrAMINE HCL [Benadryl] 25 mg PO DAILY PRN 06/05/17 [History] Lisinopril [Prinivil] 10 mg PO HS 06/19/17 [History] Atorvastatin [Lipitor] 20 mg PO HS 01/11/18 [History] Diazepam [Valium] 5 mg PO TID PRN #90 tab 01/14/18 [Rx] Hydrocodone/Acetaminophen [Hydrocodon-Acetaminoph 7.5-325] 1 each PO Q8HR PRN # 90 tablet 01/14/18 [Rx] traMADol HCL [Ultram] 50 mg PO Q8HR PRN #90 tab 01/14/18 [Rx] Follow up Appointment(s)/Referral(s): Vito Guardado DO [Doctor of Osteopathic Medicine] - 2 Weeks (With Lauro Lara at Dr. Guardado's office) Activity/Diet/Wound Care/Special Instructions: Keep site clean. May shower with waterproof Tegaderm intact. Please give patient extra small gauze and large Tegaderm for dressing change if necessary for home. After showering on Thursday May remove dressing and leave area uncovered and then may shower with area uncovered, but leave Steri-Strips intact and allow them to fray off on their own. May ambulate to tolerance. No heavy or rigorous activity. No repetitive bending stooping or twisting. No lifting greater than 15 pounds. Discharge Disposition: HOME SELF-CARE
--- NOTE | 2018-01-14 17:38 | PN ---
PROGRESS NOTE DATE OF SERVICE: 01/14/2018 This 47-year-old woman who was admitted after lumbar laminectomy decompression, improving significantly. No chest pain. No palpitations. No fever. EXAM: Alert and oriented x3. Pulse 99, blood pressure 106/64, respirations 14, temp 98.2, pulse ox 99% on room air. HEENT: Conjunctivae normal. Oral mucosa moist. NECK: No jugular venous distention. No carotid bruits. No lymph node enlargement. CARDIOVASCULAR: S1, S2 muffled. RESPIRATORY: Breath sounds diminished in the bases. No rhonchi. No crackles. ABDOMEN: Soft, nontender. LEGS: No edema. No swelling. NERVOUS SYSTEM: No focal deficits. BACK: Status post surgery. LABS: At this time show WBC 12.5. ASSESSMENT: 1. Status post lumbar laminectomy, decompression at bilateral L4-5. 2. Increased WBC, possibly reactive. 3. Hypertension. 4. History of breast cancer. 5. History of juvenile asthma. 6. History of anxiety, depression. 7. History of nicotine dependence. 8. History of THC. RECOMMENDATIONS AND DISCUSSION: Recommend to continue current medical management and symptomatic treatment. Otherwise, resume the home medications. Closely follow with primary physician. The rest of the recommendations per Orthopedic Surgery. Further recommendations to follow. MMODL / IJN: [id number] /
[2018-01-14] MEDS ORDERED: ceFAZolin IN SWFI 2 GM/20 ML SYRINGE IVP SCH (21:00)
== END 2018-01-14 11:15 | disposition home or self-care (01) | DRG 455 ==
LOC: 2ORMAIN 01-13 10:03 → 3SUR 01-13 16:16
PROVIDERS: ADMIT Orthopaedic Surgery Orthopaedic Surgery of the Spine; ATTEND Orthopaedic Surgery Orthopaedic Surgery of the Spine
PROC: 0SG0071 Fusion of Lumbar Vertebral Joint with Autologous Tissue Substitute, Posterior Approach, Posterior Column, Open Approach (ICD-10-PCS; 2018-01-13)
PROC: 0ST20ZZ Resection of Lumbar Vertebral Disc, Open Approach (ICD-10-PCS; 2018-01-13)
PROC: 07DS3ZZ Extraction of Vertebral Bone Marrow, Percutaneous Approach (ICD-10-PCS; 2018-01-13)
PROC: 30233N0 Transfusion of Autologous Red Blood Cells into Peripheral Vein, Percutaneous Approach (ICD-10-PCS; 2018-01-13)
PROC: 0SG00AJ Fusion of Lumbar Vertebral Joint with Interbody Fusion Device, Posterior Approach, Anterior Column, Open Approach (ICD-10-PCS; principal; 2018-01-13 11:30)
DX: M43.16 Spondylolisthesis, lumbar region (principal); D49.6 Neoplasm of unspecified behavior of brain; M48.062 Spinal stenosis, lumbar region with neurogenic claudication; Z85.3 Personal history of malignant neoplasm of breast; M43.17 Spondylolisthesis, lumbosacral region; M51.16 Intervertebral disc disorders with radiculopathy, lumbar region; M51.17 Intervertebral disc disorders with radiculopathy, lumbosacral region; F17.210 Nicotine dependence, cigarettes, uncomplicated; I10 Essential (primary) hypertension; F32.9 Major depressive disorder, single episode, unspecified; F41.9 Anxiety disorder, unspecified; I49.3 Ventricular premature depolarization; R94.31 Abnormal electrocardiogram [ECG] [EKG]; Z88.8 Allergy status to other drugs, medicaments and biological substances; Z91.041 Radiographic dye allergy status; Z79.810 Long term (current) use of selective estrogen receptor modulators (SERMs); Z79.899 Other long term (current) drug therapy; Z71.3 Dietary counseling and surveillance; Z71.6 Tobacco abuse counseling
CPT/HCPCS: 72100; 80048; 85025; 86850; 86900; 86901

== ENCOUNTER → 2018-05-18 | Outpatient (CLI) | payer BC ==
--- NOTE | 2018-05-18 10:04 | MM ---
Reason for exam: follow-up at short interval from prior study. Last mammogram was performed 11 months ago. History: Patient has history of breast cancer at age 37 and history of other cancer. Family history of breast cancer in grandmother, breast cancer in grandmother at age 58, and breast cancer in mother at age 38. Benign US biopsy breast VAD RT of the right breast, July 01, 2017. Cyst aspiration of both breasts, August 07, 2016. Lumpectomy of the right breast, 2006. Excisional biopsy of the left breast, 1989. Taking antineoplastic for 1 year. Physical Findings: Nurse Summary: 0.5cm nodule in the right breast at 12 o'clock and a 0.5cm nodule in the lef tbreast at 12 o'clock/2 o'clock (nurse colby). [facility] Diagnostic Mammo w CAD [facility] Bilateral CC and MLO view(s) were taken. Prior study comparison: July 01, 2017, right breast MG diagnostic mammo RT wo CAD. January 26, 2017, bilateral MG diagnostic mammo w CAD [facility]. The breast tissue is heterogeneously dense. This may lower the sensitivity of mammography. Benign calcifications. There is chronic nodularity bilaterally. These results were verbally communicated with the patient and result sheet given to the patient on 05/18/18. ASSESSMENT: Incomplete: need additional imaging evaluation, BI-RAD 0 RECOMMENDATION: Ultrasound of both breasts. Manage patient on a clinical basis.
--- NOTE | 2018-05-18 10:07 | USB ---
Reason for exam: additional evaluation requested from abnormal screening. History: Patient has history of breast cancer at age 37 and history of other cancer. Family history of breast cancer in grandmother, breast cancer in grandmother at age 58, and breast cancer in mother at age 38. Benign US biopsy breast VAD RT of the right breast, July 01, 2017. Cyst aspiration of both breasts, August 07, 2016. Lumpectomy of the right breast, 2006. Excisional biopsy of the left breast, 1989. Taking antineoplastic for 1 year. US Breast BILAT Right complete breast ultrasound includes all four quadrants, the retroareolar region and axilla. Finding demonstrates a 0.5 x 0.3 x 0.5cm cystic cluster at 3 o'clock, a 0.4 x 0.5 x 0.4cm mixed lesion at 3 o'clock, a 0.5 x 0.3 x 0.4cm mixed lesion at 5 o'clock and a 0.4 x 0.4 x 0.4cm cystic lesion at 6 o'clock. Left complete breast ultrasound includes all four quadrants, the retroareolar region and axilla. Finding demonstrates a 0.7 x 0.4 x 0.6cm mixed lesion at 7 o'clock for which a 6 month follow up is recommended, a 0.9 x 0.8 x 0.8cm mixed lesion at 8 o'clock, a 0.9 x 0.7 x 1.0cm mixed lesion at 10 o'clock, a 0.8 x 0.5 x 0.7cm mixed lesion at 11 o'clock and multiple cysts at the posterior nipple. These results were verbally communicated with the patient and result sheet given to the patient on 05/18/18. ASSESSMENT: Probably benign, BI-RAD 3 RECOMMENDATION: Ultrasound of the left breast in 6 months. Manage patient on a clinical basis.
== END | disposition home or self-care (01) ==
LOC: RADMAMWWP 07:59
PROVIDERS: ATTEND Family Medicine
DX: R92.8 Other abnormal and inconclusive findings on diagnostic imaging of breast (principal); Z85.3 Personal history of malignant neoplasm of breast
CPT/HCPCS: 77066

== ENCOUNTER → 2018-12-06 | Outpatient (CLI) | payer BC ==
--- NOTE | 2018-12-09 13:31 | USB ---
Reason for exam: clinical finding. History: Patient has history of breast cancer at age 37 and history of other cancer. Brain cancer at age 10. Family history of breast cancer in mother at age 37, breast cancer in maternal grandmother at age 58, and premenopausal breast cancer in grandmother. Benign US biopsy breast VAD RT of the right breast, July 01, 2017. Cyst aspiration of both breasts, August 07, 2016. Lumpectomy of the right breast, 2006. Excisional biopsy of the left breast, 1989. Taking antineoplastic for 1 year. Indicated problem(s): lump or thickening in both breasts. Physical Findings: Patient complains of bilateral breast lumps, pain and discharge. 1 cm palpable lumps right 12 o'clock, left 1 o'clock.. US Breast Limited BILAT Right limited breast ultrasound including focal area of concern, retroareolar and axilla demonstrates at BB 12 o'clock dense tissue. Left complete breast ultrasound includes all four quadrants, the retroareolar region and axilla. Finding demonstrates a 0.7 x 0.8 x 0.9 cm mixed lesion at 10 o'clock, a 0.8 x 0.8 x 0.4 cm oval mixed lesion at 11 o'clock, a 1.8 x 1.6 x 1.2 cm cluster mixed lesion that the patient is symptomatic with pain at this location and an aspiration is recommended, a 1.6 x 1.1 x 0.8cm oval well circumscribed mixed lesion at 12 o'clock, a 0.7 x 0.6 x 0.3 cm oval well circumscribed cystic lesion at 3 o'clock, a 0.7 x 0.4 x 0.4 cm oval well circumscribed cystic lesion at 3 o'clock, a 0.9 x 1.1 x 0.8 cm oval well circumscribed mixed lesion at 8 o'clock , a 1.2 x 0.7 x 0.5 cm cluster well circumscribed mixed lesion at 9 o'clock these all appear similar to the 12 o'clock mass that will be aspirated. recommendation for these masses will be based on the aspiration results. These results were verbally communicated with the patient and result sheet given to the patient on 12/06/18. ASSESSMENT: Suspicious, BI-RAD 4 RECOMMENDATION: Aspiration of the left breast. Called Dr. Sanchez with mammographic findings and has scheduled an appointment for the patient for 01/06/19 at 10:[address] Mcintyre for the results of the aspiration. The left breast ultrasound aspiration is to be done on 12/15/18 at 1:00pm. PRELIMINARY REPORT CALLED AND FAXED TO DR. MCINTYRE ON 12/06/18.
== END ==
LOC: RADUSWWP 08:12
PROVIDERS: ATTEND Family Medicine
DX: R92.8 Other abnormal and inconclusive findings on diagnostic imaging of breast (principal)

== ENCOUNTER → 2019-02-10 | Outpatient (CLI) | payer BC ==
[2019-02-10 09:12] LABS: Basophils # (A) 0.1 k/uL (0-0.2); Basophils % (A) 1 %; Eosinophils # (A) 0.2 k/uL (0-0.7); Eosinophils % (A) 2 %; HCT 42.8 % (34.0-46.0); HGB 13.5 gm/dL (11.4-16.0); Lymphocytes % (A) 31 %; MCH 32.1 pg (25.0-35.0); MCHC 31.6 g/dL (31.0-37.0); MCV 101.6 fL (80.0-100.0); Macrocytosis Slight; Mean Platelet Volume 6.2; Monocytes # (A) 0.5 k/uL (0-1.0); Monocytes % (A) 6 %; Neutrophils # (A) 5.8 k/uL (1.3-7.7); Neutrophils % (A) 59 %; Platelet Count 270 k/uL (150-450); RBC 4.21 m/uL (3.80-5.40); RDW 12.9 % (11.5-15.5); WBC 9.9 k/uL (3.8-10.6)
[2019-02-10 16:57] LABS: Albumin 4.2 g/dL (3.80-4.90); Anion Gap 5.9 mmol/L (4.00-12.00); Calcium 9.5 mg/dL (8.7-10.3); Carbon Dioxide 27.1 mmol/L (21.6-31.8); Globulin 2.1 g/dL (1.6-3.3); LDL Cholesterol,Calculated 99.8 mg/dL (0.0-131.0); Potassium 4.7 mmol/L (3.5-5.5); Total Bilirubin 0.4 mg/dL (0.2-1.2); Total Protein 6.3 g/dL (6.2-8.2); VLDL Calculation 12.2 mg/dL (5.00-40.00)
== END | disposition home or self-care (01) ==
LOC: LABWHC1 08:24
PROVIDERS: ATTEND Physician Assistant Medical
DX: E78.5 Hyperlipidemia, unspecified (principal); F10.11 Alcohol abuse, in remission; F43.0 Acute stress reaction; G47.00 Insomnia, unspecified
CPT/HCPCS: 36415; 80053; 80061; 82607; 84425; 84443; 85025

== ENCOUNTER → 2019-02-18 | Outpatient (CLI) | payer OTHER ==
--- NOTE | 2019-02-18 15:06 | XR ---
EXAMINATION TYPE: XR hand complete RT DATE OF EXAM: 02/18/2019 COMPARISON: NONE HISTORY: Pain TECHNIQUE: Three views are submitted. FINDINGS: The osseous structures are intact. The joint spaces are preserved and there is no acute fracture or dislocation. IMPRESSION: 1. No definite acute fracture or dislocation if symptoms persist, follow-up study in 7 to 10 days wo uld be suggested
--- NOTE | 2019-02-18 15:07 | XR ---
EXAMINATION TYPE: XR finger LT DATE OF EXAM: 02/18/2019 COMPARISON: NONE HISTORY: Pain and trauma to third digit TECHNIQUE: Three views are submitted. FINDINGS: The osseous structures are intact. The joint spaces are preserved and there is no acute fracture or dislocation. IMPRESSION: 1. No definite acute fracture or dislocation if symptoms persist, follow-up study in 7 to 10 days wo uld be suggested
== END | disposition home or self-care (01) ==
LOC: RADXRMAIN 14:18
PROVIDERS: ATTEND Emergency Medicine
DX: S67.193A Crushing injury of left middle finger, initial encounter (principal); M79.644 Pain in right finger(s)

== ENCOUNTER → 2019-02-22 | Outpatient (CLI) | payer OTHER ==
--- NOTE | 2019-02-22 15:12 | XR ---
Right humerus HISTORY: Trauma, numbness 2 views of the right humerus Bone mineralization, joint spaces and alignment are maintained. No radiopaque foreign body. IMPRESSION: Normal right humerus.
== END | disposition home or self-care (01) ==
LOC: RADXRMAIN 14:44
PROVIDERS: ATTEND Emergency Medicine
DX: S50.01XD Contusion of right elbow, subsequent encounter (principal)

== ENCOUNTER → 2019-06-20 | Outpatient (CLI) | payer BC ==
--- NOTE | 2019-06-21 09:04 | USB ---
History: Patient has history of breast cancer at age 37 and has history of other cancer at age 10. Family history of breast cancer in mother at age 37, breast cancer in maternal grandmother at age 58, and premenopausal breast cancer in grandmother. Benign US breast aspiration single LT of the left breast, December 15, 2018. Benign US biopsy breast VAD RT of the right breast, July 01, 2017. Cyst aspiration of both breasts, August 07, 2016. Lumpectomy of the right breast, 2006. Excisional biopsy of the left breast, 1989. Taking antineoplastic for 1 year. Physical Findings: Nurse Summary: Patient states bilateral white months. A the 12 o'clock position there is a palpable 0.5 x 0.5 cm movable mass in the left breast as well as a 0.5 x 1 cm mass at the 11-12 o'clock position also movable. The nurse noted tenderness on exam. US Breast Limited BILAT Right limited breast ultrasound including focal area of concern, retroareolar and axilla demonstrates no cystic or solid lesion seen. Left complete breast ultrasound includes all four quadrants, the retroareolar region and axilla. Finding demonstrates a6 x 4 x 5 mm oval hyperechoic lesion at 3 o'clock that was seen on previous exam, a 5 x 4 x 6 mm oval hypoechoic lesion at 5 o'clock, a 9 x 8 x 8 mm hypoechoic lesion at 9 o'clock that was seen on previous exam, and a 8 x 8 x 10mm oval hypoechoic lesion at 11 o'clock at the BB that was also see on the previous exam. ASSESSMENT: Benign, BI-RAD 2 RECOMMENDATION: Follow-up diagnostic mammogram of both breasts. Pt. is due now for her Yearly Mammogram
== END | disposition home or self-care (01) ==
LOC: RADUSWWP 07:57
PROVIDERS: ATTEND Family Medicine
DX: R92.8 Other abnormal and inconclusive findings on diagnostic imaging of breast (principal)

== ENCOUNTER 2019-08-25 17:39 | Emergency (ER) | payer BC, OTHER ==
[2019-08-25] MEDS ORDERED: ACETAMINOPHEN TAB 325 MG TAB PO STA (18:06)
--- NOTE | 2019-08-25 18:54 | XR ---
History: ITS.REASON XR Reason: 1st phalanx pain Exam: XR LEFT HAND 3 views Comparison: None available FINDINGS: No fracture or dislocation. The joint spaces appear within limits. IMPRESSION: No fracture or dislocation.
[2019-08-25] MEDS ORDERED: ACET/COD 300 MG/30 MG STARTER PACK 6 TAB BTL PO STA (19:37)
--- NOTE | 2019-08-25 19:37 | ED ---
General Adult HPI - General Chief complaint: Extremity Injury, Upper Stated complaint: IHS-Smashed finger Time Seen by Provider: 08/25/19 17:50 Source: patient, RN notes reviewed, old records reviewed Mode of arrival: ambulatory Limitations: no limitations - History of Present Illness Initial comments: 49-year-old female patient presents in ED with chief complaint of left thumb injury. Patient was that she was a work unloading a heavy tray when it fell on her thumb. Patient reports this occurred approximately 1 hour prior to presentation in the ER. Patient denies any other complaints at this time. Systemic: Pt denies fatigue, fever/chills, rash. Pt denies weakness, night sweats, weight loss. Neuro: Pt denies headache, visual disturbances, syncope or pre-syncope. HEENT: Pt denies ocular discharge or irritation, otalgia, rhinorrhea, pharyngitis or notable lymphadenopathy. Cardiopulmonary: Pt denies chest pain, SOB, heart palpitations, dyspnea on exertion. Abdominal/GI: Pt denies abdominal pain, n/v/d. : Pt denies dysuria, burning w/ urination, frequency/urgency. Denies new onset urinary or bowel incontinence. MSK: Pt denies myalgia, loss of strength or function in extremities. Neuro: Pt denies new onset weakness, paresthesias. - Related Data Home Medications Medication Instructions Recorded Confirmed Ibuprofen [Motrin] 800 mg PO DAILY PRN 06/05/17 12/15/18 Tamoxifen [Nolvadex] 20 mg PO HS 06/05/17 12/15/18 diphenhydrAMINE HCL [Benadryl] 25 mg PO DAILY PRN 06/05/17 12/15/18 Lisinopril [Prinivil] 10 mg PO HS 06/19/17 12/15/18 Atorvastatin [Lipitor] 20 mg PO HS 01/11/18 12/15/18 Amitriptyline HCl 25 mg PO HS 12/08/18 12/15/18 Baclofen 10 mg PO TID 12/08/18 12/15/18 Baclofen 1 tab PO DAILY 12/15/18 12/15/18 Allergies Allergy/AdvReac Type Severity Reaction Status Date / Time Iodinated Contrast Media Allergy Severe Swelling Verified 08/25/19 17:46 [Iodinated Contrast Media - Oral and] cyclobenzaprine AdvReac cramping Verified 08/25/19 17:46 [From Flexeril] "tamara horses" in bilateral legs Review of Systems ROS Statement: Those systems with pertinent positive or pertinent negative responses have been documented in the HPI. ROS Other: All systems not noted in ROS Statement are negative. 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, History of Any Multi-Drug Resistant Organisms: None Reported Past Surgical History: Back Surgery, Section, Hysterectomy, Orthopedic Surgery Additional Past Surgical History / Comment(s): D & C, Left foot ortho sx, Hysterectomy (still has ovaries), multiple laparoscopies secondary to endometriosis, Past Anesthesia/Blood Transfusion Reactions: No Reported Reaction Past Psychological History: Anxiety, Depression Smoking Status: Current every day smoker Past Alcohol Use History: Occasional Past Drug Use History: None Reported - Past Family History Mother Family Medical History: Cancer Additional Family Medical History / Comment(s): Mother, Maternal grandmother and Great maternal grandmother all were dx with Breast Cancer Son(s) Family Medical History: Blood Disorder, Deep Vein Thrombosis (DVT) Additional Family Medical History / Comment(s): 'blood clotting disorder" General Exam - General Exam Comments Initial Comments: Constitutional: NAD, AOX3, Pt has pleasant affect. HEENT: NC/AT, trachea midline, neck supple, no lymphadenopathy. Posterior pharynx non erythematous, without exudates. External ears appear normal, without discharge. Mucous membranes moist. Eyes PERRLA, EOM intact. There is no scleral icterus. No pallor noted. Cardiopulmonary: RRR, no murmurs, rubs or gallops, no JVD noted. Lungs CTAB in anterior and posterior malagon. No peripheral edema. Abdominal exam: Abdomen soft and non-distended. Abdomen non-tender to palpation in all 4 quadrants. Bowel sounds active in LLQ. No hepatosplenomegaly. No ecchymosis Neuro: CN II-XII grossly intact. No nuchal rigidity. No raccon eyes, no hinojosa sign, no hemotympanum. No cervical spinal tenderness. MSK: Full active range of motion of thumb. Thumb is tender to palpation. Snuffbox tenderness is positive. No other areas of tenderness. Capillary refill less than 2 seconds. Patient placed in thumb spica splint. Neurovascularly intact after splint placement. No posterior calf tenderness bilaterally, homans sign negative bilaterally. Posterior tibialis and radial pulse +2 bilaterally. Sensation intact in upper and lower extremities. Full active ROM in upper and lower extremities, 5/5 stregnth. Limitations: no limitations Course Vital Signs 08/25/19 17:43 Temperature 98.3 F Pulse Rate 76 Respiratory 20 Rate Blood Pressure 125/75 O2 Sat by Pulse 99 Oximetry Medical Decision Making - Medical Decision Making 49-year-old female patient presents in ED with chief complaint of left thumb injury. Patient was that she was a work unloading a heavy tray when it fell on her thumb. Patient reports this occurred approximately 1 hour prior to presentation in the ER. Patient denies any other complaints at this time. Pt VSS, afebrile. Physical exam displayed: Full active range of motion of thumb. Thumb is tender to palpation. Snuffbox tenderness is positive. No other areas of tenderness. Capillary refill less than 2 seconds. Patient placed in thumb spica splint. Neurovascularly intact after splint placement. She'll be discharged with orthopedic follow-up tomorrow. Return to ER if condition worsens. Case discussed with Dr. Stephen. Disposition Clinical Impression: Hand pain Disposition: HOME SELF-CARE Condition: Stable Instructions (If sedation given, give patient instructions): Hand Sprain (ED) Additional Instructions: Patient to adhere to previously discussed treatment plan and will take medication(s) as directed. Patient to follow up with PCP in 1-2 days. Patient to return to ED if symptoms do not improve. Please were splint. Follow up with primary care provider orthopedic consult tomorrow. Return to ER condition worsens. Is patient prescribed a controlled substance at d/c from ED?: No Referrals: Clarisse Sanchez III, MD [Primary Care Provider] - 1-2 days Cory Garrido DO [Medical Doctor] - 1-2 days
[2019-08-25 19:56] VITALS: BP 122/78; PULSE 78; RESP 18; TEMP 98.2
== END 2019-08-25 19:55 | disposition home or self-care (01) ==
LOC: EC 17:39
DX: S69.92XA Unspecified injury of left wrist, hand and finger(s), initial encounter (principal); E78.5 Hyperlipidemia, unspecified; F41.9 Anxiety disorder, unspecified; F32.9 Major depressive disorder, single episode, unspecified; F17.200 Nicotine dependence, unspecified, uncomplicated; Z91.041 Radiographic dye allergy status; Z79.899 Other long term (current) drug therapy; Z88.8 Allergy status to other drugs, medicaments and biological substances; Z79.3 Long term (current) use of hormonal contraceptives; Z85.3 Personal history of malignant neoplasm of breast; Z85.841 Personal history of malignant neoplasm of brain; W23.1XXA Caught, crushed, jammed, or pinched between stationary objects, initial encounter; Y93.89 Activity, other specified; Y92.69 Other specified industrial and construction area as the place of occurrence of the external cause; Y99.0 Civilian activity done for income or pay
CPT/HCPCS: 29125; 99284

== ENCOUNTER → 2019-08-29 | Outpatient (CLI) | payer OTHER ==
--- NOTE | 2019-08-29 14:37 | XR ---
Left wrist HISTORY: Trauma and pain 4 views of the left wrist, correlation to prior left exam 08/25/2019. There is an overlying splint present. Mild arthropathy present. Bone mineralization, joint spaces and alignment are stable. IMPRESSION: No fracture or dislocation. Overlying artifact.
== END ==
LOC: RADXRMAIN 14:17
PROVIDERS: ATTEND Emergency Medicine
DX: S60.212A Contusion of left wrist, initial encounter (principal)

== ENCOUNTER → 2019-09-01 | Outpatient (CLI) | payer OTHER ==
--- NOTE | 2019-09-01 15:54 | XR ---
EXAMINATION TYPE: XR hand complete LT DATE OF EXAM: 09/01/2019 COMPARISON: 08/25/2019 HISTORY: Pain TECHNIQUE: Three views are submitted. FINDINGS: The osseous structures are intact. The joint spaces are preserved and there is no acute fracture or dislocation. IMPRESSION: 1. No definite acute fracture or dislocation if symptoms persist, follow-up study in 7 to 10 days wo uld be suggested. If symptoms fail to resolve correlate with MRI.
--- NOTE | 2019-09-01 15:56 | XR ---
EXAMINATION TYPE: XR wrist complete LT DATE OF EXAM: 09/01/2019 COMPARISON: 08/29/2019 HISTORY: Pain TECHNIQUE: Four views submitted. FINDINGS: The osseous structures are intact. The joint spaces are preserved and there is no acute fracture or dislocation. IMPRESSION: 1. No definite acute fracture or dislocation if symptoms persist, follow-up study in 7 to 10 days wo uld be suggested. If symptoms fail to resolve correlate with MRI.
== END | disposition home or self-care (01) ==
LOC: RADXRMAIN 15:28
PROVIDERS: ATTEND Emergency Medicine
DX: S60.212D Contusion of left wrist, subsequent encounter (principal); S60.222D Contusion of left hand, subsequent encounter; M25.542 Pain in joints of left hand

== ENCOUNTER → 2019-09-18 | Outpatient (CLI) | payer OTHER ==
--- NOTE | 2019-09-18 18:44 | MR ---
EXAMINATION TYPE: MR wrist LT wo con DATE OF EXAM: 09/18/2019 COMPARISON: None HISTORY: Left wrist pain Standard multiplanar, multisequence MRI departmental protocol Multiplanar, multisequence images of the left wrist were acquired. FINDINGS: There is some increased signal in a patchy distribution involving the MID portion of the ca pitate bone. The other carpal bones show fairly normal signal pattern. Distal radius and ulna appear intact. Intercarpal joint spaces are fairly normal. There is a minimal wrist joint effusion. The visu alized metacarpals appear intact. The flexor and extensor tendons of the wrist appear intact. There i s subcutaneous edema on the anterior aspect of the wrist joint and the palm of the hand. There are sm all linear defects in the triangular cartilage. There is no evidence of avascular necrosis. IMPRESSION: There is complex tear of the triangular cartilage. No evidence of a fracture. Focal areas of increas ed signal on the capitate are probably small degenerative cysts. No significant joint space narrowing . Small joint effusion consistent with nonspecific synovitis. Soft tissue swelling of the anterior palm and carpus.
== END | disposition home or self-care (01) ==
LOC: RADMRIMAIN 07:30
PROVIDERS: ATTEND Emergency Medicine
DX: S63.592A Other specified sprain of left wrist, initial encounter (principal); M79.89 Other specified soft tissue disorders

== ENCOUNTER → 2020-10-09 | Outpatient (CLI) | payer OTHER ==
--- NOTE | 2020-10-09 08:38 | MM ---
Reason for exam: additional evaluation requested from prior study. Last mammogram was performed 2 years and 5 months ago. History: Patient has history of breast cancer at age 37 and has history of other cancer at age 10. Family history of breast cancer in mother at age 37, breast cancer in maternal grandmother at age 58, and premenopausal breast cancer in grandmother. Benign US breast aspiration single LT of the left breast, December 15, 2018. Benign US biopsy breast VAD RT of the right breast, July 01, 2017. Cyst aspiration of both breasts, August 07, 2016. Lumpectomy of the right breast, 2006. Excisional biopsy of the left breast, 1989. Taking antineoplastic for 1 year. Physical Findings: Nurse Summary: 1.5cm nodule in the right breast at 12 o'clock (nurse melanie). [facility]ammo w CAD [facility] Bilateral CC and MLO view(s) were taken. Prior study comparison: May 18, 2018, bilateral [facility] diagnostic mammo w CAD [facility]. May 18, 2018, bilateral US breast BILAT. July 01, 2017, right breast [facility] diagnostic mammo RT wo CAD. January 26, 2017, bilateral [facility] diagnostic mammo w CAD [facility]. The breast tissue is extremely dense which could obscure a lesion on mammography. Previous mammotome biopsy in the right breast x 2. No significant new findings when compared with previous films. These results were verbally communicated with the patient and result sheet given to the patient on 10/09/20. ASSESSMENT: Incomplete: need additional imaging evaluation, BI-RAD 0 RECOMMENDATION: Ultrasound of both breasts.
--- NOTE | 2020-10-09 08:40 | USB ---
Reason for exam: additional evaluation requested from abnormal screening. History: Patient has history of breast cancer at age 37 and has history of other cancer at age 10. Family history of breast cancer in mother at age 37, breast cancer in maternal grandmother at age 58, and premenopausal breast cancer in grandmother. Benign US breast aspiration single LT of the left breast, December 15, 2018. Benign US biopsy breast VAD RT of the right breast, July 01, 2017. Cyst aspiration of both breasts, August 07, 2016. Lumpectomy of the right breast, 2006. Excisional biopsy of the left breast, 1989. Taking antineoplastic for 1 year. US Breast BILAT Right complete breast ultrasound includes all four quadrants, the retroareolar region and axilla. Finding demonstrates a 5 x 2 x 5mm mixed lesion at 3 o'clock. Left complete breast ultrasound includes all four quadrants, the retroareolar region and axilla. Finding demonstrates several cystic lesions measuring 7 x 4 x 5mm at 1 o'clock, 6 x 3 x 4mm at 3 o'clock, 4 x 2 x 3mm at 8 o'clock, 7 x 6 x 6mm at 9 o'clock and 7 x 6 x 8mm at 11 o'clock. These results were verbally communicated with the patient and result sheet given to the patient on 10/09/20. ASSESSMENT: Benign, BI-RAD 2 RECOMMENDATION: Routine screening mammogram of both breasts in 1 year.
== END | disposition home or self-care (01) ==
LOC: RADMAMWWP 06:59
PROVIDERS: ATTEND Family Medicine
DX: Z08 Encounter for follow-up examination after completed treatment for malignant neoplasm (principal); Z85.3 Personal history of malignant neoplasm of breast
CPT/HCPCS: 77066

== ENCOUNTER → 2021-09-03 | Outpatient (CLI) | payer BC ==
--- NOTE | 2021-09-03 14:05 | MM ---
Reason for exam: clinical finding. Last mammogram was performed 11 months ago. History: Patient is postmenopausal, has history of breast cancer at age 37, and has history of other cancer at age 10. Family history of breast cancer in mother at age 37, breast cancer in maternal grandmother at age 58, and premenopausal breast cancer in grandmother. Benign US breast aspiration single LT of the left breast, December 15, 2018. Benign US biopsy breast VAD RT of the right breast, July 01, 2017. Cyst aspiration of both breasts, August 07, 2016. Lumpectomy of the right breast, 2006. Excisional biopsy of the left breast, 1989. Taking antineoplastic for 1 year. Physical Findings: Nurse Summary: 0.5cm nodule in the right breast at 11:30 and 12 o'clock and a 1cm nodule in the left breast at 7 o'clock (nurse dw). [facility] Mammo w [facility] Bilateral CC, MLO, and XCCL view(s) were taken. Prior study comparison: October 09, 2020, bilateral [facility] diagnostic mammo w CAD [facility]. June 20, 2019, bilateral US breast limited BILAT. The breast tissue is heterogeneously dense. This may lower the sensitivity of mammography. Previous mammotome biopsy in the right breast x 2. There is no new dominant lesion. These results were verbally communicated with the patient and result sheet given to the patient on 09/03/21. ASSESSMENT: Incomplete: need additional imaging evaluation, BI-RAD 0 RECOMMENDATION: Ultrasound of both breasts. (palpables)
--- NOTE | 2021-09-03 14:07 | USB ---
Reason for exam: additional evaluation requested from abnormal screening. History: Patient is postmenopausal, has history of breast cancer at age 37, and has history of other cancer at age 10. Family history of breast cancer in mother at age 37, breast cancer in maternal grandmother at age 58, and premenopausal breast cancer in grandmother. Benign US breast aspiration single LT of the left breast, December 15, 2018. Benign US biopsy breast VAD RT of the right breast, July 01, 2017. Cyst aspiration of both breasts, August 07, 2016. Lumpectomy of the right breast, 2006. Excisional biopsy of the left breast, 1989. Taking antineoplastic for 1 year. US Breast Limited BILAT Right limited breast ultrasound including focal area of concern, retroareolar and axilla demonstrates dense tissue only at 11-12 o'clock BB's. Left limited breast ultrasound including focal area of concern, retroareolar and axilla demonstrates a 0.4 x 0.3 x 0.3cm cystic lesion at 5 o'clock and a 0.3 x 0.5 x 0.3cm cystic lesion with septations at 6 o'clock. These results were verbally communicated with the patient and result sheet given to the patient on 09/03/21. ASSESSMENT: Benign, BI-RAD 2 RECOMMENDATION: Routine screening mammogram of both breasts in 1 year.
== END | disposition home or self-care (01) ==
LOC: RADMAMWWP 08:23
PROVIDERS: ATTEND Family Medicine
DX: N63.11 Unspecified lump in the right breast, upper outer quadrant (principal); N63.24 Unspecified lump in the left breast, lower inner quadrant; N64.89 Other specified disorders of breast; Z80.3 Family history of malignant neoplasm of breast
CPT/HCPCS: 77066

== ENCOUNTER → 2022-08-14 | Outpatient (CLI) | payer OTHER ==
[2022-08-14 18:58] LABS: HCT 43.8 % (37.2-46.3); MCH 32.7 pg (27.0-32.0); MCV 102.3 fL (80.0-97.0); Mean Platelet Volume 10.2 fL (9.5-12.2); NRBC Per 100 WBC 0 /100 WBCS (0.0-0.0); Platelet Count 246 X 10*3/uL (140-440); RBC 4.28 X 10*6/uL (4.10-5.20); RDW 13.4 % (11.5-14.5); WBC 12.42 X 10*3/uL (4.50-10.00)
[2022-08-14 19:21] LABS: Erythrocyte Sedimentation Rate 12 mm/Hr (0-20)
[2022-08-14 20:16] LABS: African American GFR (CKD) 80.7 (60.0-200.0); Albumin 4.4 g/dL (3.8-4.9); Albumin/Globulin Ratio 1.68 (1.60-3.17); Anion Gap 12.3 mmol/L (10.00-18.00); BUN/Creat Ratio 17.54 Ratio (12.00-20.00); Blood Urea Nitrogen 16.7 mg/dL (9.0-27.0); C Reactive Protein 1.1 mg/dL (0.00-0.80); Calcium 9.3 mg/dL (8.7-10.3); Carbon Dioxide 23.1 mmol/L (20.0-27.5); Globulin 2.6 g/dL (1.6-3.3); Non-African American GFR(CKD) 69.7 (60.0-200.0); Potassium 4.4 mmol/L (3.5-5.5); Total Bilirubin 0.4 mg/dL (0.30-1.20)
== END | disposition home or self-care (01) ==
LOC: LABWHC1 12:26
PROVIDERS: ATTEND Orthopaedic Surgery
DX: Z00.00 Encounter for general adult medical examination without abnormal findings (principal)
CPT/HCPCS: 36415; 80053; 85027; 85652; 86140

== ENCOUNTER → 2022-09-18 | Outpatient (CLI) | payer OTHER ==
--- NOTE | 2022-09-18 10:05 | CT ---
EXAMINATION TYPE: CT lumbar spine wo con CT DLP: 518.5 mGycm, Automated exposure control for dose reduction was used. DATE OF EXAM: 09/18/2022 8:29 AM COMPARISON: Lumbar spine radiograph 08/14/2022, MRI lumbar spine 11/13/2017. CLINICAL INDICATION:Female, 52 years old with history of M54.10 Radiculopathy M54.9 Back pain; PHH, R adiculopathy, pre op TECHNIQUE: Multiple axial images were obtained from the midportion of T11 through the sacroiliac jace nts. Soft tissue and bone windows in coronal and sagittal planes were obtained and reviewed. FINDINGS: Alignment: There are 5 lumbar type vertebral bodies with grade 1 anterolisthesis of L4 on L5. Bone: No evidence of fracture is identified. Postsurgical changes with bilateral pedicle screws and rods with interdisc spacer involving L4 and L5 with laminectomy changes. Discs: T12-L1: No spinal canal or neural foraminal stenosis is identified. L1-L2: No spinal canal or neural foraminal stenosis is identified. L2-L3: Broad-based disc bulge with minimal effacement of the anterior thecal sac. No neural foraminal stenosis. L3-L4: Broad-based disc bulge with facet hypertrophy contribute to mild spinal canal stenosis. No sig nificant neural foraminal stenosis. L4-L5: Postsurgical changes with streak artifact which limits evaluation. No gross evidence of centr al canal or neural foraminal stenosis. L5-S1: Broad-based disc bulge with minimal effacement of the anterior thecal sac. No neural foraminal stenosis. Other: Atherosclerotic calcification of the aorta and its branches. No abdominal aortic aneurysm. IMPRESSION: 1. No evidence of fracture of the lumbar spine. 2. Postsurgical fixation changes at L4-L5 with grade 1 anterolisthesis of L4 on L5. Hardware appears intact. 3. Mild multilevel degenerative disc disease.
== END | disposition home or self-care (01) ==
LOC: RADCTMAIN 07:59 → MERGE 08:15
PROVIDERS: ATTEND Orthopaedic Surgery
DX: M51.16 Intervertebral disc disorders with radiculopathy, lumbar region (principal); M43.16 Spondylolisthesis, lumbar region
CPT/HCPCS: 72131

== ENCOUNTER → 2022-10-20 | Outpatient (CLI) | payer OTHER ==
[2022-10-20 08:06] VITALS: BP 124/70; PULSE 91; RESP 18; TEMP 98.2
--- NOTE | 2022-10-20 15:32 | P.PAINPG ---
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 Pt states pain level is at 9/10 in intensity, constant, localized in the mid to lower lumbar spine, achy in character w shooting pain towards BL lateral thighs. Pain is provoked by bending and weight bearing activity. Pain is alleviated by hot/ cold water therapy, heat, ice, medications (Motrin 600mg), home exercise regimen is too painful, use of a wheelchair and walker for ambulation, repositioning and rest. Pt states she can not participate in PT or chiropractic treatments as they have been too painful in the past. PMH: R Breast CA (age 37), Escobar Cystoma (Age 10), Hyperlipidemia, MDD/ Anxiety PSH: L4-L5 Decompression & Fusion (2018), Section, Partial Hyster ectomy, Multiple Laparoscopies secondary to Endometriosis, L Foot Surgery SH: Daily tobacco use, Occasional ETOH use, No illicit drug use FH: Mo- Breast CA. Son- DVT All: See list Meds: See list REVIEW OF ORGAN SYSTEMS: CONSTITUTIONAL: No fevers or chills. No recent weight loss. NEUROLOGICAL: + numbness and tingling along the distal extremities. No seizure disorders or headaches. MUSCULOSKELETAL: + pain PSYCHIATRIC: Denies current depression or suicidal thoughts. Physical Examinations : Constitutional : Cooperative , not in acute distress . Neurologic : Cranial nerve II to XII intact. No focal neurological deficits. Psychiatric : alert & oriented x 3. Matching mood & appropriate affect. Judgment & insight intact. Musculoskeletal : Cervical Spine Motor strength in the deltoid and biceps: Normal right side. Normal Left side Motor strength biceps and the wrist extensors: Normal right side . Normal left side Motor strength in the triceps muscle: Normal right side. Normal left side Deep tendon reflexes: Normal at the biceps. Normal at Brachioradialis. Normal at triceps Vertebral body tenderness to deep palpation over Cervical facet loading test: positive bilaterally Spurling test: positive bilaterally Neck distraction test: positive bilaterally Za sign: positive bilaterally Lumbar spine Motor strength lower extremities ,thigh and legs 5/5 Right side , 5/5 Left side Deep tendon reflexes : Normal Knee Jerk. Normal Ankle Jerk Vertebral body tenderness over L4 Lumbar facet Loading Test: positive Right / positive Left Range of motion of the lumbar spine Flexion 30 degrees, extension 10 degrees Straight Leg Raise test: Left/ Right positive at degree Jannie test: positive right / positive left. Severe tenderness over the Sacroiliac joint on the Right / Left sides Gaenslen test: positive bilaterally Seated flexion test: positive bilaterally. Sacral spine : Severe tenderness over the Sacroiliac joint: right side / left side Range of motion: Flexion of the lumbar spine <60 degrees Range of motion: Extension of the lumbar spine <20 degrees Gaenslen's Test positive Wilfred's Test positive Jannie test: positive right side / left side Thigh Thrust Test Sacral Thrust Test Imaging: MRI of the lumbar spine reviewed Assessment/ Plan : Lumbar Spondylosis, Lumbar DDD Recommendation of TANYA L3-L4. May need a series of injections, up to 3 within a six-month timeframe, for optimal pain relief. Risks, benefits of procedure discussed and patient verbalized understanding. Admits to aspirin or anti- coagulant use or medical history of diabetes. Protocol for discontinuation/ continuation of medications camilo procedure discussed. All questions answered. I have spent greater than 30 minutes on patient care today. Dr Zelaya was available by phone for the evaluation of this patient. The time was used to review the medical records including relevant urine studies and Prescription history (MAPs), review of the available imaging, evaluation and examination of the patient, coordination of care with the medical staff and if applicable referring physicians, as well as creation of the medical record PQRS Narrative: Smoking Status Current every day smoker Home Medications: Ambulatory Orders Ibuprofen [Motrin] 800 mg PO DAILY PRN 06/05/17 Tamoxifen [Nolvadex] 20 mg PO HS 06/05/17 diphenhydrAMINE HCL [Benadryl] 25 mg PO DAILY PRN 06/05/17 lisinopriL [Prinivil] 10 mg PO HS 06/19/17 Atorvastatin [Lipitor] 20 mg PO HS 01/11/18 Amitriptyline HCl 25 mg PO HS 12/08/18 Baclofen 10 mg PO TID 12/08/18 Baclofen 1 tab PO DAILY 12/15/18 Controlled Substance Measures - Controlled Substance Measures Is patient prescribed a controlled substance at discharge?: No
== END ==
LOC: PNWHC3 07:15
PROVIDERS: ATTEND Specialist
DX: M47.816 Spondylosis without myelopathy or radiculopathy, lumbar region (principal); M51.36 Other intervertebral disc degeneration, lumbar region; Z79.01 Long term (current) use of anticoagulants; E11.9 Type 2 diabetes mellitus without complications; F17.200 Nicotine dependence, unspecified, uncomplicated; Z91.041 Radiographic dye allergy status; Z88.8 Allergy status to other drugs, medicaments and biological substances; Z79.84 Long term (current) use of oral hypoglycemic drugs
CPT/HCPCS: 99211

== ENCOUNTER → 2022-11-07 | Outpatient (CLI) | payer OTHER ==
--- NOTE | 2022-11-07 13:23 | MR ---
EXAMINATION TYPE: MR lumbar spine wo con DATE OF EXAM: 11/07/2022 COMPARISON: MRI lumbar spine November 13, 2017. CT lumbar spine September 18, 2022 HISTORY: Lower back pain, BLE radiculopathy. Hx surgery 2018. TECHNIQUE: Multiplanar, multisequence imaging of the lumbar spine is performed without IV contrast. FINDINGS: Sagittal images of the lumbar spine show vertebral body heights and alignment to appear sta ble and satisfactory from most recent CT. There is artifact from posterior interpedicular rods and sc rews transfixing L4-L5 levels bilaterally. There is artifact from metallic disc material at this leve l noted. There is disc desiccation with mild disc space narrowing L3-L4 level. The conus medullaris is normal in position and signal ending mid L1 level. The bone marrow signal intensity is within nor mal limits above and below surgical levels. Axial images at T12-L1 and L1-L2 levels appear within normal limits. Axial images at L2-L3 level show mild broad disc bulge minimally effacing the anterior thecal sac. Pa tent bilateral neural foramina. Axial images at the L3-L4 level show mild to moderate facet arthropathy along with mild broad disc bu lge having left paracentral protrusion component effacing the anterior thecal sac. Patent bilateral n eural foramina. Some artifact from surgical hardware now present. This disc herniation significantly more prominent from prior MRI. Axial images at L4-L5 level show artifact from surgical change. Spinal canal is preserved. Bilateral neural foramina are patent. Axial images at L5-S1 level remain within normal limits. No suspicious retroperitoneal findings. IMPRESSION: Interval surgery at L4-L5 level with improved alignment from prior MRI. More prominent de generative change L3-L4 level with larger disc herniation is seen.
== END | disposition home or self-care (01) ==
LOC: RADMRIMAIN 11:05
PROVIDERS: ATTEND Orthopaedic Surgery
DX: M47.26 Other spondylosis with radiculopathy, lumbar region (principal); M51.16 Intervertebral disc disorders with radiculopathy, lumbar region
CPT/HCPCS: 72148

== ENCOUNTER → 2022-12-04 | Outpatient (CLI) | payer OTHER ==
[2022-12-04 15:34] LABS: Basophils # (A) 0.08 X 10*3/uL (0.00-0.10); Basophils % (A) 0.7 %; Eosinophils # (A) 0.07 X 10*3/uL (0.04-0.35); Eosinophils % (A) 0.6 %; HCT 44.2 % (37.2-46.3); HGB 14.2 g/dL (12.0-15.0); Immature Grans, Automated 0.4 %; Lymphocytes % (A) 23.1 %; MCH 32.9 pg (27.0-32.0); MCHC 32.1 g/dL (32.0-37.0); MCV 102.6 fL (80.0-97.0); Mean Platelet Volume 9.9 fL (9.5-12.2); Monocytes # (A) 0.59 X 10*3/uL (0.20-1.00); Monocytes % (A) 5.1 %; NRBC Per 100 WBC 0 /100 WBCS (0.0-0.0); Neutrophils # (A) 8.19 X 10*3/uL (1.80-7.70); Neutrophils % (A) 70.1 %; Platelet Count 246 X 10*3/uL (140-440); RBC 4.31 X 10*6/uL (4.10-5.20); RDW 12.5 % (11.5-14.5); WBC 11.68 X 10*3/uL (4.50-10.00)
[2022-12-04 16:07] LABS: INR 0.97 (0.90-1.11)
[2022-12-04 17:03] LABS: African American GFR (CKD) 61.7 (60.0-200.0); Anion Gap 12.5 mmol/L (10.00-18.00); BUN/Creat Ratio 14.87 Ratio (12.00-20.00); Blood Urea Nitrogen 17.7 mg/dL (9.0-27.0); Calcium 9.2 mg/dL (8.7-10.3); Carbon Dioxide 21.7 mmol/L (20.0-27.5); Non-African American GFR(CKD) 53.2 (60.0-200.0); Potassium 4.7 mmol/L (3.5-5.5)
== END | disposition home or self-care (01) ==
LOC: LABPAT 10:11
PROVIDERS: ATTEND Orthopaedic Surgery
DX: Z01.812 Encounter for preprocedural laboratory examination (principal); M51.36 Other intervertebral disc degeneration, lumbar region; M48.061 Spinal stenosis, lumbar region without neurogenic claudication; M47.811 Spondylosis without myelopathy or radiculopathy, occipito-atlanto-axial region; Z22.322 Carrier or suspected carrier of Methicillin resistant Staphylococcus aureus
CPT/HCPCS: 36415; 80048; 85025; 85610; 87070

== ENCOUNTER 2022-12-12 05:47 | Inpatient (IN) | payer OTHER ==
[2022-12-09 09:10] VITALS: BMI 29.2
[~2022-12-12 05:47] MED LIST: ACETAMINOPHEN TAB 500 MG TAB PO PRN; GABAPENTIN 300 MG CAP PO PRN; ONDANSETRON 4 MG/2 ML VIAL IVP PRN; TRANEXAMIC ACID IN NACL,ISO-OS 1,000 MG in SALINE 1 100ML.BAG IVPB PRN
[2022-12-12] MEDS ORDERED: MIDAZOLAM 2 MG/2 ML VIAL IV PRN (06:04)
[2022-12-12] MEDS ORDERED: LACTATED RINGERS 1,000 ML IV ONE ×3 (06:15→09:45)
[2022-12-12] MEDS: LACTATED RINGERS 1,000 ML IV SCH (06:15)
--- NOTE | 2022-12-12 06:34 | P.HPOR ---
History of Present Illness H&P Date: 12/04/22 .D:Date: 12/04/22 : 11:26am .T:Title: [facility] Date of :[birth year] Age: 52 year Height: 5'3" Weight: 150 lbs BMI: 26.57 kg/m2 Occupation: Disability VAS: 8 CHIEF COMPLAINT: recheck lumbar pain DOI:increased the past 3 months DOS: hx of prior L4-L5 TLIF through Dr. Guardado Duration of current treatment regiment: 2 months HISTORY : Xrays No new xrays taken in office Trauma or injury yes 05-28-2022. The patient reports that she was opening her dog cage and she twisted the wrong way and felt a pop in her left posterior hip at home on 05-28-2022. Work-Related No Pain description burning, sharp, shooting. Location posterior Patient notes that their pain radiates to bilateral lower extremities Activity Modification yes, ambulating with a walker Hand Dominance right TREATMENTS COMPLETED: 6 weeks of PT completed? Month and Year of last PT date? No Physician directed home exercise completed? yes Patient has trialed the physician directed home exercise program for 2 months without relief of their symptoms. Pt d/c as it exacerbated her symptoms. Medications yes List: Medrol Dosepak, Motrin 800mg both without any relief. Alternative interventions Chiropractic: No Massage therapy: No R.I.C.E: yes heat/ice without relief Brace: No Injections No RFA: No SUBJECTIVE: Ms. Ranulfo Crews returns to the office for a pre-operative review of the planned lumbar (L3-L5) revision decompression and fusion. Patient reports no improvements to her symptoms since the time of the last appointment. The patient continues to complain of increasing, sharp lumbar pain ongoing no new injury or trauma. Furthermore the patient continues to complain of bilateral lower extremity radiculopathy (R>L) with numbness and tingling as well. Overall the patient has seen a progressive increase in symptoms since their onset and is very limited with her daily functionality due to her pain. Ms. Ranulfo Crews symptoms are exacerbated with standing, ambulation, and flexion/extension of the low back, and high impact movements like walking up and down stairs, due to this they notes that it is increasingly difficult for Ms. Ranulfo Crews to complete many of their daily tasks. Patient is having severe sleep disturbances as well due to their ongoing pain and associated symptoms. Regarding treatments, the patient has previously trialed all abovementioned treatment modalities without relief of her symptoms. Patient denies trialing any other modalities at this time. For their symptoms, the patient has been taking Ibuprofen 800mg without any relief of her symptoms. Otherwise the patient denies any f/c/sob/cp, no bladder or bowel retention/incontinence, no perineal numbness/tingling, and ambulates independently. Patient notes that she is ready to proceed with the abovementioned surgery. HPI: Ms. Ranulfo Crews last returned to the office on 11/13/22 for a recheck of their low back pain and to review her MRI ordered at the time of her last appointment. Patient reports increasing, sharp lumbar pain ongoing no new injury or trauma. Furthermore the patient continues to complain of bilateral lower extremity radiculopathy (R>L) with numbness and tingling as well. Overall the patient has seen a progressive increase in symptoms since their onset and is very limited with her daily functionality due to her pain. Ms. Ranulfo Crews symptoms are exacerbated with standing, ambulation, and flexion/extension of the low back, and high impact movements like walking up and down stairs, due to this they notes that it is increasingly difficult for Ms. Ranulfo Crews to complete many of their daily tasks. Patient is having severe sleep disturbances as well due to their ongoing pain and associated symptoms. Regarding treatments, the patient has previously trialed all abovementioned treatment modalities without relief of her symptoms. Patient denies trialing any other modalities at this time. For their symptoms, the patient has been taking Ibuprofen 800mg without any relief of her symptoms. Otherwise the patient denies any f/c/sob/cp, no bladder or bowel retention/incontinence, no perineal numbness/tingling, and ambulates independently. Ms. Ranulfo Crews last returned to the office on 09/29/22 for a recheck of their low back and to review her CT scan previously ordered. Since the time of the last appointment the patient reports increased lumbar pain and bilateral lower extremity radicular symptoms. Overall the patient has seen a significant increase in symptoms since their onset which is increasingly debilitating. Ms. Ranulfo Crews symptoms are exacerbated with (most any activity involving prolonged sitting, standing, ambulation, due to this they notes that it is increasingly difficult for Ms. Ranulfo Crews to complete many of their daily tasks. Patient is having severe sleep disturbances as well due to their ongoing pain and associated symptoms. Regarding treatments, the patient has previously trialed all abovementioned treatment modalities without relief. Patient denies trialing any other modalities at this time. Otherwise the patient denies any f/c/sob/cp, no incision concerns, no bladder or bowel retention/incontinence, no perineal numbness/tingling, and ambulates with a walker. Ms. Ranulfo Crews was last seen on 08/14/2022 regarding their lumbar pain. Patient reports a sharp, burning, and shooting lumbar pain ongoing for 2 months since, she was opening her dog cage and she twisted the wrong way and felt a pop in her left posterior hip at home on 05-28-2022. In addition to their lumbar pain, they do report that it radiates into the bilateral lower extremities, associated withnumbness and tingling through the thighs. Overall the patient has seen a progressive increase in symptoms since their onset. Ms. Ranulfo Crews symptoms are exacerbated with prolonged walking, standing, and stairs due to this they notes that it is increasingly difficult for Ms. Ranulfo Crews to complete many of their daily tasks. Patient is having moderate sleep disturbances as well due to their ongoing pain and associated symptoms. The patient reports groin pain. The patient has a history of lumbar fusion by Dr. Guardado in 2017. The patient had a CT scan done at [facility] recently. Patient denies trialing any other modalities at this time. For their symptoms, the patient has been taking Motrin. Otherwise the patient denies any f/c/sob/cp, no incision concerns, no bladder or bowel retention/incontinence, no perineal numbness/tingling, and ambulates independently. The patients' past social, medical, family, surgical history, as well as review of systems, have been reviewed. Please refer to the Neurosurgery History and Physical form that has been scanned in to our electronic medical record system. 14 points review of systems completed and as stated in HPI, all other systems reviewed are negative. Social History: Reviewed, see appropriate section of the chart for details. P3 Social History: Smoking: current smoker P3, Marijuana Smoking Amount: 1/2 PPD Alcohol: none P3 Family History: Reviewed, see appropriate section of the chart for details. P2 Past Medical History: Reviewed, see appropriate section of the chart for details. [id number] Medications: Rx: atorvastatin 20 mg tablet Ref: 0 Rx: lisinopriL 10 mg tablet Ref: 0 Rx: tamoxifen Ref: 0 Rx: Wellbutrin Ref: 0 Rx: ZyrTEC 10 mg capsule Ref: 0 Rx: Lyrica Ref: 0 Rx: ibuprofen 800 mg tablet Ref: 0 PHYSICAL EXAMINATION: General: Awake, alert, appropriate for age, in no acute distress. HEENT: No unusual neck masses around region of lateral neck triangle, thyroid, supraclavicular groove Heart: Regular rate and rhythm, normal S1, S2 and no murmur/gallop. Lungs: Clear to auscultation bilaterally with no use of accessory muscles. Extremities: Skin warm and dry without acute lesions, coloration, temperature, skin intact, no tenderness or erythema Integument: Hairy patches: ABSENT Dorsal skin dimples: ABSENT Cafe au lait spots: ABSENT Surgical incisions: NONE Palpation: Please see Pain drawing on Intake sheet for further detail. Midline spinal tenderness: No E6 Cervical Tenderness: No E6 Paralumbar tenderness: No E6 Parathoracic tenderness: No E6 Buttocks tenderness: No E6 Sacroiliac Tenderness: No POSTURAL and MUSCULO-SKELETAL EVALUATION: Coronal Balance: NEUTRAL Recumbent testing: Patient is able to lay flat on back Sagittal Balance: NEUTRAL Shoulder Profile: LEVEL Pelvic Girdle: LEVEL Neck ROM: UNRESTRICTED Lumbar ROM: RESTRICTED Shoulder ROM: Symmetrical Hip ROM: Symmetrical Knee ROM: Symmetrical Hands: Normal appearance, symmetrical Feet: Normal appearance, Symmetrical VASCULAR STATUS : LEFT RIGHT Wrist Pulses INTACT INTACT Pedal Pulses (Dors. pedis & post.tibialis) INTACT INTACT Color NORMAL NORMAL Edema Absent Absent NEUROLOGIC EXAMINATION: Mental Status:Awake and alert, fully oriented, with normal attention, concentration and memory, and fluent, appropriate speech. Cranial Nerves: I: Olfactory not tested. II: Visual acuity normal, no visual field deficit noted with confrontation. III,IV: Normal pupillary reflexes & intact extraocular movements without nystagmus. V,: Intact symmetrical facial sensation. VII: Intact symmetrical facial motor movement VIII: Hearing intact. IX,X: Intact gag, swallow, & normal voice. XI: Sternocleidomastoid, trapezius function intact. XII: Tongue midline with normal movements. L'hermitte's Sign: Negative / absent Spurling'Sign: Absent bilaterally. Cubital percussion test: Absent bilaterally. Michel-Tinel sign - Carpal region: Absent bilaterally. Straight Leg Raising: Positive on the left Crossed straight leg raise: negative O8 MOTOR EXAM (0-5/5, N/T Muscle appearance: Symmetrical, without signs of atrophy or dystrophy UPPER EXTREMITY RIGHT LEFT Shoulder Abduction 5/5 5/5 Biceps 5/5 5/5 Triceps 5/5 5/5 Wrist Extension 5/5 5/5 Hand Intrinsics 5/5 5/5 Market [employer] Reporter 5/5 5/5 LOWER EXTREMITY RIGHT LEFT Hip Flexion 4/5 -4/5 Knee Extension 4/5 -4/5 Knee Flexion 4/5 -4/5 Dorsiflexion 4/5 -4/5 Plantarflexion 4/5 -4/5 EHL 4/5 -4/5 FHL 4/5 -4/5 Toe heel walk / heel-toe walk intact while maintaining satisfactory balance? No Squatting/straightening w/o assistance to a min of 60 degree knee flexion? No Single leg stance: not intact left side Trendelenburg sign negative bilaterally REFLEXES(0-4/2, NT)Upper ExtremityLower Extremity Right 2 2 Left 2 2 Pathological Reflexes RIGHT LEFT Michel's Absent Absent Clonus Absent Absent Babinski Absent Absent Sensory system (0-4, N/T) Test type RU ELIJAH RL LL Joint-Position 2 2 2 2 Vibration 2 2 2 2 Pain & LT sense 2 2 2 2 Dermatomal Deficit: None None None L3-L4 Gait and Functional Evaluation: Ambulatory aids: Walker Romberg's test: Intact bilaterally unsteady Gait RADIOGRAPHIC STUDIES: XRay Lumbar Multiview (AP, Lateral, Flexion, Extension) with AP pelvis; [address] [facility] on 08/14/22 of Spine: images reviewed. s/p L4-5 TLIF at outside facility. Hardware in good position minimal anterior fusion noted, some posterior facet fusion noted. No fractures. Overall alignment maintained. Some ASD changes with spondylosis at L3-4 and L5-S1. Residual Grade I listheis at L4-[address] [facility] from 09/18/2022 of Lumbar Spine: IMages reviewed with the patient. This demonstrates post operative changes at L4-5 with TLIF construct in position. There is minimal anterior fusion noted at this level, but there is some ongrowth of the cage noted. No posterolateral fusion noted. No fractures. Hardware in position and does not appear loose or migrated. There is ASD at L3-4 with disc herniation causing velma based stenosis central and mild foraminal. There is facet hypertrophy contributing to moderate central stenosis as well. There is ASD at L5-S1 as well. There is facet hypertrophy to a lesser extent with some disc collapse causing b/l foraminal stenosis. No fractures. No lesions. MRI scan without contrast from 11/07/22 at [facility] of the lumbar spine demonstrates: Images Reviewed in office with the patient. L1-2 Mild spondylosis, mild stenosis L2-3 Mild spondylosis with stenosis L3-4 Spondylosis, severe, disc height loss, HNP causing central and b/l foraminal stenosis, facet arthropathy and bogginess L4-5 Post surgical changes, artifact, residual stenosis noted, likely pseudoarthrosis L5-S1 Mild spondylosis with ASD, height loss, facet arthropathy Alignment: PI:NA LL: 48 Coronal alignment: Maintained Fracture: None Lesion: None IMPRESSION: It was my pleasure to have seen and examined Juju. I reviewed the patient's clinical syndrome, physical findings, and imaging studies during the appointment today. It is my impression that the patient has a diagnosis of. 1. status post L4-L5 TLIF 2. bilateral lower extremity radiculopathy (R>L) 3. lower extremity weakness 4. mechanical lower back pain 5. L3-L4 spondylosis with HNP and stenosis 6. pseudoarthrosis L4-L5 I outlined the natural course history without intervention and various interventional options. PLAN: Based on my findings I suggest the following course of action: -I discussed treatment options with the patient, including operative and non-operative options, and they have elected to proceed with the following surgical procedure: lumbar (L3-L5) revision decompression and fusion The indications, risks, benefits, and alternatives to surgery were discussed with the patient and family at length. Specifically (but not limited to) the risks of infection, stiffness, recurrence of symptoms, need for revision surgery, local numbness, neurovascular injury, and blood clots were discussed. The patient's questions were answered. The decision to proceed was made. Consent will be obtained for the procedure. Patient to be off work until surgery and we will plan on her being off of work for 3 months following the procedure. Spine Surgery Risk Review Ms. Ranulfo Crews is presenting for evaluation of low back pain. It was my pleasure to have seen and examined Ms. Ranulfo Crews. In our visit today we have had a chance to go over subjective complaints, physical examination findings and treatments including the natural course history without intervention and various interventional options. The patients imaging demonstrates: XRay Lumbar Multiview (AP, Lateral, Flexion, Extension) with AP pelvis; [address] [facility] on 08/14/22 of Spine: images reviewed. s/p L4-5 TLIF at outside facility. Hardware in good position minimal anterior fusion noted, some posterior facet fusion noted. No fractures. Overall alignment maintained. Some ASD changes with spondylosis at L3-4 and L5-S1. Residual Grade I listheis at L4-[address] scancompleted at [facility] from 09/18/2022 of Lumbar Spine: IMages reviewed with the patient. This demonstrates post operative changes at L4-5 with TLIF construct in position. There is minimal anterior fusion noted at this level, but there is some ongrowth of the cage noted. No posteriolateral fusion noted. No fractures. Hardware in position and does not appear loose or migrated. There is ASD at L3-4 with disc herniation causing velma based stenosis centrall and mild foraminal. There is facet hypertrophy contributing to moderate central stenosis as well. There is ASD at L5-S1 as well. There is facet hypertrophy to a lesser extent with some disc collapse causing b/l foraminal stenosis. No fractures. No lesions. MRI scan without contrast from 11/07/22 at [facility] of the lumbar spine demonstrates: Images Reviewed in office with the patient. L1-2 Mild spondylosis, mild stenosis L2-3 Mild spondylosis with stenosis L3-4 Spondylosis, severe, disc height loss, HNP causing central and b/l foraminal stenosis, facet arthropathy and bogginess L4-5 Post surgical changes, artifact, residual stenosis noted, likely pseudoarthrosis L5-S1 Mild spondylosis with ASD, height loss, facet arthropathy Alignment: PI:NA LL: 48 Coronal alignment: Maintained Fracture: None Lesion: None On physical exam, Ms. Ranulfo Crews demonstrates severe low back pain with restricted lumbar ROM. Patient does also demonstrate left lower extremity radiculopathy with diffuse weakness and L3-L4 dermatomal deficits. Overall functional testing limited due to pain along with unstable gait. Patient ambulating with the use of a walker. I have explained to the patient that as their condition progresses it will cause further neurological deficits and eventual paralysis. Based on the patients imaging, physical exam, and the rapid progression and disabling nature of their symptoms, at this time I recommend surgery in the form or a: lumbar (L3-L5) revision decompression and fusion . I discussed the risk and benefits of this procedure at length with Ms. Ranulfo Crews. The patient and her family agreed to considered pursuing the procedure abovementioned. Prior to surgery, she should follow up with her PCP (Cardio, ID, IM etc) for clearance. Questions were invited and answered, and the patient wishes to proceed as outlined below. Currently, I am recommendin.lumbar (L3-L5) revision decompression and fusion 2.Follow up with PCP for surgical clearance 3.Review of surgical risks and benefits as well as an educational packet on the proposed surgical procedure. Risks: All surgical procedures come with inherent risks, including those related to positioning, anesthesia, intraoperative findings, and postoperative complications. It is important to understand that surgery does not come with any guarantee of a successful outcome as complications and adverse events are always possible. The patient was given a handout in office today discussing the surgical procedure and risks associated with the intervention, both of which were discussed with the patient. These risks include but are not limited to the following: * Experiencing same, different or even worse symptoms in back, neck, arms, or legs compared to before surgery. Requiring further surgery or other forms of treatment presently or at some time in the future at same or other levels of the intended spine surgery. On an extreme but fortunately relatively rare basis severe complication such as blindness, stroke, heart attack, temporary and/or permanent nerve injury, paralysis, coma, or may occur, sometimes without known explanation. Surgical complications may include but are not limited to risk of infection, fluid accumulation in the surgical dissection site, including a seroma or hematoma, that requires additional surgery, wound drainage, bleeding, new numbness or weakness, vision changes/loss, spinal fluid leakage, non-healing and/or infected incision, headaches, difficulty or inability to swallow, hoarseness, hemopneumothorax, pneumothorax, impotence, retrograde ejaculation, vaginal dryness; injury to nerves, spinal cord, blood vessels, lymphatics or other vital organs (i.e., bowel injury, injury to the great vessels); heterotopic bone formation; complications related to the hardware such as screws, rods, cages including misplaced hardware, device failure, instrumentation at the wrong spine level, hardware fracture/breakage, or hardware loosening; vertebral failure of the spinal column above or below the newly placed hardware; retained surgical instrumentations or devices and the need for further surgery. * Medical risks of the planned spine surgery include but are not limited to generalized Infections to the whole body or local areas outside of the surgical site (sepsis), heart attack, bleeding, anaphylaxis, meningitis, seizure, epilepsy, hearing loss, burn tracy, laceration of the head or other areas of the body, bruising, hypersensitivity of the skin, bladder over distension; allergic reaction; shoulder injury related to positioning; fat, blood and air clots to other areas of the body like heart, lungs, brain; failure of internal organs such as lungs, kidneys, liver and excessive bleeding. If blood transfusions are necessary, note that transfusions may cause intolerance reactions such as anaphylaxis or other complex reactions. Despite best efforts, the results of spine surgery might not heal in terms of bone, soft tissues such as skin, fascia, ligaments, and joints. Additionally, in order to achieve best possible results, spine surgery may be carried out beyond the initially planned levels and involve decompression, fusion including insertion of hardware at levels other than the original intended area of surgical interest change some portions of the procedure in order to ensure the best possible outcomes. With spine surgery and spinal fusion, there are different off label uses of in strumentation (devices, implants and hardware) as well as biological substances (bone morphogenic proteins, demineralized bone matrix) as well as using extra bone from allograft sources (i.e. cadaver bone) or autograft (iliac crest bone, ribs, or the spine itself). The patient has been given information about these practices and their inherent risks and benefits. [facility] is an educational center that serves as a training facility for neurosurgical and orthopedic INKJET OPERATOR and Nursing students. Physician assistants are medically trained surgical providers who function in the outpatient, inpatient, and operating room setting under the direct supervision of the attending surgeon. [facility] has multiple operating rooms with single and overlapping rooms running daily. They currently function under the required guidelines as produced by the [facility] Finance Committee with regards to the overlapping rooms and will continue to comply with changes to this policy as they occur. The requirements include and are complied with as follows: (1) the critical portions of the overlapping rooms will not occur at the same time, (2) the attending physician will be physically present during the critical portions of the procedure and immediately available during the entire case, and (3) a back-up attending is designated should the primary attending not be immediately available. The patient has had a chance to review all the listed information, has been given print outs detailing this information, and has had all his/her questions answered to their satisfaction. It was my pleasure to have seen and examined Ms. Ranulfo Crews. In our visit today we have had a chance to go over my understanding of our patient's current condition, the natural course history without intervention and various interventional options. Questions were invited and answered, and the patient wishes to proceed as outlined above. I have seen and examined the patient for 25 minutes and we have spent more than 50% of the time in repeat and detailed counseling about the patient's condition, its natural course history with out and as much as can be predicted with surgery and re-review of various surgical treatment options. In conclusion, Ms. Ranulfo Crews requested we proceed with the above suggested surgery and are willing to accept risks and limitations of the sug gested surgery as nature of the disease process and our best attempts at treatment for the condition. Thank you again for allowing us to be part of your patient's care. Please don't hesitate to contact me if you have any further questions. Signed and authenticated by: [employer] P:\\\\ppart\\\\Files\\\\[id number] \\\\[id number].PNG \\d Follow-up: 2 weeks post-op Patient Education: (Informational booklet, instructions, etc) given at today's appointment: Yes .ED:Patient Education: Y Plan at next visit: review progress and MRI Medications Reviewed: YES In our visit today Ms. Ranulfo Crews and I have had a chance to go over my understanding of the patient's current condition, the natural course history without intervention and various interventional options. Questions were invited and answered, and the patient wishes to proceed as outlined above. I will be sure to keep you updated afterMsSukumar Crews returns here for further follow-up. Thank you again for your referral. Please do not hesitate to contact me if you have any further questions. Signed and authenticated by: José Oliver DO [facility] [address] [place] [id number] This message is confidential, intended only for the named recipient(s) and may contain information that is privileged or exempt from disclosure under applicable law. If you are not the intended recipient(s), you are notified that the dissemination, distribution or copying of this information is strictly prohibited. If you received this message in error, please notify the sender then delete this message. Patient verbalizes understanding of the information discussed. The above note was initiated by José Sanchez, physician recording assistant director of security for Dr. José Oliver. This note has been reviewed by Dr. Oliver, who has made his personal changes and impressions for this document. CC: Susanna Mcintyre M.D. 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 History of Any Multi-Drug Resistant Organisms: None Reported Past Surgical History: Back Surgery, Section, Hysterectomy, Orthopedic Surgery Additional Past Surgical History / Comment(s): D & C, Left foot ortho sx, Hysterectomy (still has ovaries), multiple laparoscopies secondary to endometriosis, zachery-cytoma removed,rt breast lumpectomy,mult lumps removed christiana breasts Past Anesthesia/Blood Transfusion Reactions: No Reported Reaction Additional Past Anesthesia/Blood Transfusion Reaction / Comment(s): no problems with blood transfusion in 1980 Smoking Status: Current every day smoker - Past Family History Mother Family Medical History: Cancer Additional Family Medical History / Comment(s): Mother, Maternal grandmother and Great maternal grandmother all were dx with Breast Cancer Son(s) Family Medical History: Blood Disorder, Deep Vein Thrombosis (DVT) Additional Family Medical History / Comment(s): left leg removed due to not enough blood flow to leg Medications and Allergies Home Medications Medication Instructions Recorded Confirmed Type Ibuprofen [Motrin] 600 - 800 mg PO Q6H PRN 06/05/17 12/09/22 History Tamoxifen [Nolvadex] 20 mg PO HS 06/05/17 12/09/22 History diphenhydrAMINE HCL [Benadryl] 25 mg PO DAILY PRN 06/05/17 12/09/22 History lisinopriL [Prinivil] 10 mg PO HS 06/19/17 12/09/22 History Atorvastatin [Lipitor] 20 mg PO HS 01/11/18 12/09/22 History Cetirizine HCl [Zyrtec] 10 mg PO HS PRN 12/09/22 12/09/22 History Pregabalin [Lyrica] 150 mg PO BID 12/09/22 12/09/22 History buPROPion XL [Wellbutrin XL] 300 mg PO HS 12/09/22 12/09/22 History Allergies Allergy/AdvReac Type Severity Reaction Status Date / Time Iodinated Contrast Media Allergy Severe Swelling(states Verified 12/09/22 09:19 [Iodinated Contrast Media - betadine Oral and] and shellfish ok to have" cyclobenzaprine AdvReac cramping Verified 12/09/22 08:48 [From Flexeril] "tamara horses" in bilateral extremities Physical Examination Osteopathic Statement: *. No significant issues noted on an osteopathic structural exam other than those noted in the History and Physical/Consult.
[2022-12-12] MEDS ORDERED: ROCURONIUM 10 MG/ML (5 ML VIAL) IV ONE (06:54)
[2022-12-12] MEDS ORDERED: PHENYLEPHRINE-0.9% NACL SYG 1,000 MCG/10 ML SYRINGE ONE (06:54)
[2022-12-12] MEDS ORDERED: ePHEDrine 50 MG/ML 1 ML VIAL ONE (06:54)
[2022-12-12] MEDS ORDERED: HYDROmorphone (PF) 1 MG/ML ONE (06:54)
[2022-12-12] MEDS ORDERED: SUCCINYLCHOLINE CHLORIDE 200 MG/10 ML VIAL IV ONE (06:54)
[2022-12-12] MEDS ORDERED: fentaNYL (PF) 50 MCG/ML 2 ML AMP ONE (06:54)
[2022-12-12] MEDS ORDERED: SODIUM CHLORIDE 0.9% 100 ML BAG ONE (06:54)
[2022-12-12] MEDS ORDERED: PROPOFOL 10 MG/ML 20 ML VIAL IV ONE (06:54)
[2022-12-12] MEDS ORDERED: GLYCOPYRROLATE 0.2 MG/ML 2 ML VIAL ONE (06:54)
[2022-12-12] MEDS ORDERED: TRANEXAMIC ACID IN NACL,ISO-OS 1,000 MG/100 ML BAG ONE (06:54)
[2022-12-12] MEDS ORDERED: LIDOCAINE 2% INJ 20 MG/ML (2 ML VIAL) ONE (06:54)
[2022-12-12] MEDS ORDERED: NEOSTIGMINE 1 MG/ML 10 ML VIAL ONE (06:54)
[2022-12-12] MEDS ORDERED: KETAMINE 10 MG/ML 20 ML VIAL ONE (06:54)
[2022-12-12] MEDS ORDERED: MIDAZOLAM 2 MG/2 ML VIAL ONE (06:54)
[2022-12-12] MEDS ORDERED: ceFAZolin 1,000 MG VIAL ONE (06:54)
[2022-12-12] MEDS ORDERED: HYDROmorphone 0.5 MG/0.5 ML SYRINGE IVP PRN ×2 (07:00→10:36)
[2022-12-12] MEDS ORDERED: GELATIN SPONGE,ABSORB (LARGE) 1 EACH SPONGE MISCELLANE ONE (08:08)
[2022-12-12] MEDS ORDERED: THROMBIN (BOVINE) 5,000 UNIT VIAL MISCELLANE ONE (08:08)
[2022-12-12] MEDS ORDERED: GENTAMICIN 80 MG in SODIUM CHLORIDE 0.9% IRRIGATIO 3,000 ML IRRIGATION ONE (08:10)
[2022-12-12] MEDS ORDERED: ceFAZolin 3,000 MG in SODIUM CHLORIDE 0.9% IRRIGATIO 3,000 ML IRRIGATION ONE (08:11)
[2022-12-12] MEDS ORDERED: VANCOMYCIN 1,000 MG VIAL MISCELLANE ONE (09:57)
--- NOTE | 2022-12-12 10:09 | XR ---
EXAM TYPE: LUMBAR SPINE X RAY SERIES COMPARISON: NONE HISTORY: Lumbar fusion TECHNIQUE: 9 intraoperative views are submitted. FINDINGS: Various stages of surgical intervention are seen with grade 1 anterolisthesis L4-L5. Postsurgical melvina nges are noted. IMPRESSION: 1. Postoperative change
--- NOTE | 2022-12-12 10:11 | FL ---
EXAMINATION TYPE: FL guidance operating room DATE OF EXAM: 12/12/2022 HISTORY: Fluoroscopy time 47 seconds of fluoroscopy provided. IMPRESSION: 1. Fluoroscopy time.
[2022-12-12] MEDS ORDERED: CYCLOBENZAPRINE 5 MG TAB PO PRN (10:36)
[2022-12-12] MEDS ORDERED: HYDROcodone/APAP 5-325MG 1 EACH TAB PO PRN (10:36)
[2022-12-12] MEDS ORDERED: HYDROcodone/APAP 10-325MG 1 EACH TAB PO PRN (10:36)
[2022-12-12] MEDS ORDERED: SENNOSIDES-DOCUSATE SODIUM 1 EACH TAB PO PRN (10:36)
[2022-12-12] MEDS ORDERED: MAGNESIUM HYDROXIDE 2,400 MG/10 ML CUP PO PRN (10:36)
--- NOTE | 2022-12-12 11:51 | P.PN ---
Progress Note - Text Progress Note Date: 12/12/22 Postop: . Patient seen and examined they are doing well. Their pain is under control at this time. They are moving all 4 extremities without any issues. Vital signs are stable.. They are currently recovering and will be transferred to the floor once deemed stable by the PACU team and anesthesiologist. No Other issues at this time they deny fever chills shortness of breath or chest pain. [Medical management pending] [Continue with intravenous fluids, pain medication, muscle relaxers, home medication] [Soft diet to start to advance as tolerated] We will evaluate the patient in the morning.
[2022-12-12] MEDS: HYDROmorphone 1 MG/ML 1 ML SYRINGE IVP PRN ×3 (13:34→20:46)
--- NOTE | 2022-12-12 15:22 | P.CONS ---
History of Present Illness - Reason for Consult Consult date: 12/12/22 med management - History of Present Illness Patient is a 52-year-old female with history of hypertension, dyslipidemia, breast cancer, presented for elective lumbar revision, decompression and fusion. [facility] physicians has been consulted for medical management. Patient currently has a Morrison catheter in place. Currently, patient denies any chest pain, shortness of breath, abdominal pain, nausea, vomiting, diarrhea, constipation. Patient seen and examined at bedside. Pertinent positives and negatives as discussed in HPI, a complete review of systems was performed and all other systems are negative. Vital signs reviewed General: nontoxic, no distress, appears at stated age Derm: warm, dry, dressing clean, dry, and intact Head: atraumatic, normocephalic, symmetric Eyes: EOMI, no lid lag, anicteric sclera, pupils equal round reactive to light ENT: Nose and ears atraumatic Neck: No thyromegaly, supple Mouth: no lip lesion, mucus membranes moist Cardiovascular: S1S2 reg, no murmur, no edema Lungs: clear to auscultation bilateral, no rhonchi, no rales, no wheeze, no accessory muscle use Abdominal: soft, nontender to palpation, no guarding, no appreciable organomegaly Ext: no gross muscle atrophy, muscle strength muscle strength 5 out of 5 in all 4 extremities, no contractures Neuro: CN II-XII grossly intact Psych: Alert, oriented, appropriate affect Assessment/Plan: Status post spinal surgery -Defer pain management, DVT prophylaxis primary surgical service -PT/OT Chronic medical problems: Hypertension Dyslipidemia History of breast cancer Depression/anxiety Neuropathy -Continue home medications Thank you for allowing us to participate in the care of this pleasant patient. Do not hesitate to contact us with questions. Someone can be reached from the [facility] hospitalist group all hours of the day at [phone] or via [employer]. 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 History of Any Multi-Drug Resistant Organisms: None Reported Past Surgical History: Back Surgery, Section, Hysterectomy, Orthopedic Surgery Additional Past Surgical History / Comment(s): D & C, Left foot ortho sx, Hysterectomy (still has ovaries), multiple laparoscopies secondary to endometriosis, zachery-cytoma removed,rt breast lumpectomy,mult lumps removed christiana breasts Past Anesthesia/Blood Transfusion Reactions: No Reported Reaction Additional Past Anesthesia/Blood Transfusion Reaction / Comm: no problems with blood transfusion in 1980 Past Psychological History: Anxiety, Depression Smoking Status: Current every day smoker Past Alcohol Use History: Occasional Additional Past Alcohol Use History / Comment(s): smokes 6-8 cigarettes daily,started at age 22 Past Drug Use History: Marijuana Additional Drug Use History / Comment(s): last use marijuana 2 weeks ago, uses "once a month" - Past Family History Mother Family Medical History: Cancer Additional Family Medical History / Comment(s): Mother, Maternal grandmother and Great maternal grandmother all were dx with Breast Cancer Son(s) Family Medical History: Blood Disorder, Deep Vein Thrombosis (DVT) Additional Family Medical History / Comment(s): left leg removed due to not enough blood flow to leg Medications and Allergies Home Medications Medication Instructions Recorded Confirmed Type Ibuprofen [Motrin] 600 - 800 mg PO Q6H PRN 06/05/17 12/09/22 History Tamoxifen [Nolvadex] 20 mg PO HS 06/05/17 12/09/22 History diphenhydrAMINE HCL [Benadryl] 25 mg PO DAILY PRN 06/05/17 12/09/22 History lisinopriL [Prinivil] 10 mg PO HS 06/19/17 12/09/22 History Atorvastatin [Lipitor] 20 mg PO HS 01/11/18 12/09/22 History Cetirizine HCl [Zyrtec] 10 mg PO HS PRN 12/09/22 12/09/22 History Pregabalin [Lyrica] 150 mg PO BID 12/09/22 12/09/22 History buPROPion XL [Wellbutrin XL] 300 mg PO HS 12/09/22 12/09/22 History Allergies Allergy/AdvReac Type Severity Reaction Status Date / Time Iodinated Contrast Media Allergy Severe Swelling(states Verified 12/09/22 09:19 [Iodinated Contrast Media - betadine Oral and] and shellfish ok to have" cyclobenzaprine AdvReac cramping Verified 12/09/22 08:48 [From Flexeril] "tamara horses" in bilateral extremities Physical Exam Vitals: Vital Signs Temp Pulse Pulse Resp BP BP Pulse Ox 12/12/22 12:47 97.4 F L 75 18 119/75 97 12/12/22 11:52 62 16 110/64 99 12/12/22 11:37 66 16 105/63 99 12/12/22 11:22 63 16 110/67 98 12/12/22 11:07 73 16 116/76 97 12/12/22 10:52 76 16 133/66 100 12/12/22 10:37 96.8 F L 81 20 120/70 100 12/12/22 06:34 97.4 F L 85 18 126/81 97 Intake and Output 12/11/22 12/12/22 12/12/22 22:59 06:59 14:59 Intake Total 200 2652 Output Total 725 Balance 200 1927 Intake: IV 200 2652 Output: Drainage 60 Lower Back 60 Urine 385 Estimated Blood Loss 280 Other: Weight 73.1 kg 73.1 kg
--- NOTE | 2022-12-12 15:29 | CT ---
EXAMINATION TYPE: CT lumbar spine wo con DATE OF EXAM: 12/12/2022 COMPARISON: 09/18/2022 HISTORY: 52-year-old female status post L3-L5 revision decompression/lumbar fusion TECHNIQUE: Contiguous axial scanning of the lumbar spine without IV contrast. Coronal and sagittal re constructions performed. CT DLP: 968.1 mGycm Automated exposure control for dose reduction was used. FINDINGS: Post surgical change of L3-L5 posterior and interbody fusion and corresponding laminectomies. Orthope dic hardware appears uncomplicated. Numerous foci of subcutaneous and paraspinal air related to recent operation. Postsurgical foci of ai r in the laminectomy bed. Additional foci of air within the spinal canal appears to be relegated to t he epidural space. Fixed grade 1 anterolisthesis at L4-L5. Remaining alignment is maintained. Vertebral body heights are preserved. Posterior midline skin pee. No abnormal fluid collection is identified. IMPRESSION: 1. INTERVAL L3 AND L4 LAMINECTOMIES WITH INTERVAL EXTENSION OF PATIENT'S PREVIOUS POSTERIOR AND INTER BODY LUMBAR FUSION NOW from L3-L5. ORTHOPEDIC HARDWARE APPEARS UNCOMPLICATED. 2. SIMILAR FIXED GRADE 1 ANTEROLISTHESIS L4-L5. REMAINING ALIGNMENT IS MAINTAINED. 3. FOCI OF AIR IN THE SOFT TISSUES, LAMINECTOMY BED, AND EPIDURAL REGION RELATING TO RECENT OPERATION .
[2022-12-12] MEDS: NICOTINE 14MG/24HR PATCH TRANSDERM SCH (18:17)
[2022-12-12] MEDS: ACETAMINOPHEN TAB 325 MG TAB PO SCH ×2 (18:18→19:26)
[2022-12-12] MEDS: TAMOXIFEN 10 MG TAB PO SCH (20:45)
[2022-12-12] MEDS: ATORVASTATIN 20 MG TAB PO SCH (20:45)
[2022-12-12] MEDS: buPROPion XL 300 MG TAB.ER.24H PO SCH (20:45)
[2022-12-12] MEDS: PREGABALIN 100 MG CAP PO SCH (20:45)
[2022-12-12] MEDS ORDERED: lisinopriL 10 MG TAB PO SCH (21:00)
[2022-12-12] MEDS ORDERED: PREGABALIN 75 MG CAP PO SCH (21:00)
[2022-12-13] MEDS ORDERED: ONDANSETRON 4 MG/2 ML VIAL IVP PRN (00:06)
[2022-12-13] MEDS: ACETAMINOPHEN TAB 325 MG TAB PO SCH ×5 (00:25→23:47)
[2022-12-13] MEDS: HYDROmorphone 1 MG/ML 1 ML SYRINGE IVP PRN ×2 (00:29→05:33)
[2022-12-13] MEDS: LACTATED RINGERS 1,000 ML IV SCH (05:35)
[2022-12-13 09:20] LABS: Basophils # (A) 0.04 X 10*3/uL (0.00-0.10); Basophils % (A) 0.4 %; Eosinophils # (A) 0.08 X 10*3/uL (0.04-0.35); Eosinophils % (A) 0.8 %; HCT 33.2 % (37.2-46.3); HGB 10.6 g/dL (12.0-15.0); Immature Grans, Automated 0.4 %; Lymphocytes # (A) 2.41 X 10*3/uL (0.90-5.00); Lymphocytes % (A) 23.7 %; MCH 33.2 pg (27.0-32.0); MCHC 31.9 g/dL (32.0-37.0); MCV 104.1 fL (80.0-97.0); Mean Platelet Volume 10.3 fL (9.5-12.2); Monocytes % (A) 6.9 %; NRBC Per 100 WBC 0 /100 WBCS (0.0-0.0); Neutrophils # (A) 6.92 X 10*3/uL (1.80-7.70); Neutrophils % (A) 67.8 %; Platelet Count 174 X 10*3/uL (140-440); RBC 3.19 X 10*6/uL (4.10-5.20); RDW 12.6 % (11.5-14.5); WBC 10.19 X 10*3/uL (4.50-10.00)
[2022-12-13] MEDS: PREGABALIN 100 MG CAP PO SCH ×2 (09:35→20:32)
[2022-12-13] MEDS: NICOTINE 14MG/24HR PATCH TRANSDERM SCH (09:35)
--- NOTE | 2022-12-13 09:59 | P.PN ---
Subjective Progress Note Date: 12/13/22 Principal diagnosis: Status post revision L3-L5 decompression and fusion Patient was evaluated today at bedside, she was sitting up and resting in her hospital chair. She has been up ambulating with the assistance of a walker. The urinary catheter remains in place. She is utilizing the insidious per hour. She is passing gas she states, she's not had a bowel movement at this time. She feels thather strength in her lower extremities is improving. She does note some discomfort in the low back and to her flanks. She denies any headaches, lightheadedness, chest pain or shortness of breath. Objective - Vital Signs Vital signs: Vital Signs Temp 98.9 F 12/13/22 07:06 Pulse 82 12/13/22 07:06 Resp 16 12/13/22 07:06 BP 94/60 12/13/22 07:06 Pulse Ox 97 12/13/22 07:48 FiO2 Intake & Output 12/12/22 12/13/22 12/13/22 18:59 06:59 18:59 Intake Total 2652 Output Total 805 3520 Balance 1847 -3520 Weight 73.1 kg Intake: IV 2652 Output: Drainage 140 220 Lower Back 140 220 Urine 385 3300 Estimated Blood Loss 280 Other: Voiding Method Indwelling Catheter - Exam Gen: AOx3, NAD VSS stable at this time Integument: Bandages are clean, dry and intact. 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 4/5 strength appreciated in the bilateral lower extremities with hip flexion, knee extension, knee flexion, plantar flexion, dorsiflexion, EHL, FHL Reflexes: 2/4 in all UE and L] Negative Za's, Babinski, clonus bilaterally - Labs CBC & Chem 7: 12/13/22 05:33 Labs: Abnormal Lab Results - Last 24 Hours (Table) 12/13/22 Range/Units 05:33 WBC 10.19 H (4.50-10.00) X 10*3/uL RBC 3.19 L (4.10-5.20) X 10*6/uL Hgb 10.6 L (12.0-15.0) g/dL Hct 33.2 L (37.2-46.3) % MCV 104.1 H (80.0-97.0) fL MCH 33.2 H (27.0-32.0) pg MCHC 31.9 L (32.0-37.0) g/dL Assessment and Plan Assessment: Postoperative day #1 status post revision L3-L5 decompression and fusion Plan: Pain control, did adjust oral medication. Did discuss the need to discontinue use of the IV pain medication DVT prophylaxis, PETER hose to the bilateral lower extremities, SCD while in bed or radha Encourage incentive spirometer Weight-bear as tolerated with walker. No bending, lifting, twisting Okay to discontinue urinary catheter today We'll leave drain in place overnight, likely remove and change dressing on 12/14/2022 Medical recommendations Discharge planning: Likely discharge home on 12/15/2022 Time with Patient: Less than 30
--- NOTE | 2022-12-13 12:35 | P.PN ---
Subjective Progress Note Date: 12/13/22 Subjective: Patient seen and examined at bedside. No acute events overnight. She claims that she has back pain from doing physical therapy this morning. She denies any chest pain, shortness of breath, lightheadedness, palpitations, abdominal pain, nausea, vomiting, diarrhea, constipation. She continues to have a Morrison catheter in place. Pertinent positives and negatives as discussed above, a complete review of systems was performed and all other systems are negative. Vitals Signs Reviewed. General: nontoxic, no distress, appears at stated age Derm: warm, dry, dressing clean, dry, and intact Head: atraumatic, normocephalic, symmetric Eyes: EOMI, no lid lag, anicteric sclera, pupils equal round reactive to light ENT: Nose and ears atraumatic Neck: No thyromegaly, supple Mouth: no lip lesion, mucus membranes moist Cardiovascular: S1S2 reg, no murmur, no edema Lungs: clear to auscultation bilateral, no rhonchi, no rales, no wheeze, no accessory muscle use Abdominal: soft, nontender to palpation, no guarding, no appreciable organomegaly Ext: no gross muscle atrophy, muscle strength muscle strength 5 out of 5 in all 4 extremities, no contractures Neuro: CN II-XII grossly intact Psych: Alert, oriented, appropriate affect Assessment and Plan: Status post spinal surgery -Defer pain management, DVT prophylaxis primary surgical service -PT/OT History of Hypertension -Currently holding lisinopril Nicotine dependence -Counseled regarding smoking cessation -Nicotine patch Chronic medical problems: Dyslipidemia History of breast cancer Depression/anxiety Neuropathy -Continue home medications Thank you for allowing us to participate in the care of this pleasant patient. Do not hesitate to contact us with questions. Someone can be reached from the [facility] hospitalist group all hours of the day at [phone] or via [employer]. Objective - Vital Signs Vital signs: Vital Signs Temp 98.9 F 12/13/22 07:06 Pulse 82 12/13/22 07:06 Resp 16 12/13/22 07:06 BP 94/60 12/13/22 07:06 Pulse Ox 97 12/13/22 07:48 FiO2 Intake & Output 12/12/22 12/13/22 12/13/22 18:59 06:59 18:59 Intake Total 2652 Output Total 805 3520 1030 Balance 4907 -3520 -1030 Weight 73.1 kg Intake: IV 2652 Output: Drainage 140 220 80 Lower Back 140 220 80 Urine 385 3300 950 Estimated Blood Loss 280 Other: Voiding Method Indwelling Catheter - Labs CBC & Chem 7: 12/13/22 05:33 Labs: Abnormal Lab Results - Last 24 Hours (Table) 12/13/22 Range/Units 05:33 WBC 10.19 H (4.50-10.00) X 10*3/uL RBC 3.19 L (4.10-5.20) X 10*6/uL Hgb 10.6 L (12.0-15.0) g/dL Hct 33.2 L (37.2-46.3) % MCV 104.1 H (80.0-97.0) fL MCH 33.2 H (27.0-32.0) pg MCHC 31.9 L (32.0-37.0) g/dL
[2022-12-13] MEDS: HYDROcodone/APAP 10-325MG 1 EACH TAB PO PRN ×3 (13:26→23:08)
[2022-12-13] MEDS: TAMOXIFEN 10 MG TAB PO SCH (20:32)
[2022-12-13] MEDS: buPROPion XL 300 MG TAB.ER.24H PO SCH (20:32)
[2022-12-13] MEDS: ATORVASTATIN 20 MG TAB PO SCH (20:32)
[2022-12-14] MEDS: HYDROcodone/APAP 10-325MG 1 EACH TAB PO PRN (04:48)
[2022-12-14] MEDS: ACETAMINOPHEN TAB 325 MG TAB PO SCH ×4 (05:47→23:26)
[2022-12-14] MEDS: PREGABALIN 100 MG CAP PO SCH (09:07)
[2022-12-14] MEDS: NICOTINE 14MG/24HR PATCH TRANSDERM SCH (09:07)
--- NOTE | 2022-12-14 09:25 | P.PN ---
Subjective Progress Note Date: 12/14/22 Principal diagnosis: Status post revision L3-L5 decompression and fusion Patient was evaluated today at bedside, her is present. She states that she was doing with a lot of pain yesterday and into the night. She feels that the oral medications are not strong enough. She is passing gas she states, she's not had a bowel movement at this time. She denies any headaches, li ghtheadedness, chest pain or shortness of breath. Objective - Vital Signs Vital signs: Vital Signs Temp 98.0 F 12/14/22 07:12 Pulse 84 12/14/22 07:12 Resp 16 12/14/22 07:12 BP 98/64 12/14/22 07:12 Pulse Ox 95 12/14/22 07:12 FiO2 Intake & Output 12/13/22 12/14/22 12/14/22 18:59 06:59 18:59 Intake Total 1080 Output Total 1070 149 Balance 10 -149 Intake: Oral 1080 Output: Drainage 120 149 Lower Back 120 149 Urine 950 Other: Voiding Method Toilet # Voids 3 3 # Bowel Movements 0 - Exam Gen: AOx3, NAD VSS stable at this time Integument: Bandages are clean, dry and intact. 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 Constipation Plan: Pain control, adjusted oral medication. The pain medication for severe breakthrough pain is okay DVT prophylaxis, PETER hose to the bilateral lower extremities, SCD while in bed or radha Encourage incentive spirometer LSO brace rx will be placed in chart 12/15/2022 Weight-bear as tolerated with walker. No bending, lifting, twisting Reassess drain output on 12/15/2022, likely remove at that time Medical recommendations Discharge planning: Possible discharge home 12/15/2022 Time with Patient: Less than 30
[2022-12-14] MEDS: oxyCODONE-APAP 7.5-325MG 1 EACH TAB PO PRN ×3 (10:19→22:23)
[2022-12-14] MEDS: polyethylene glycoL 3350 17 GM POWD.PACK PO SCH (10:20)
--- NOTE | 2022-12-14 12:00 | P.PN ---
Subjective Progress Note Date: 12/14/22 Subjective: Patient seen and examined at bedside. No acute events overnight. She still continues to have severe back pain, and has difficulty and comfortable. She is noticing abdominal bloating. She denies any nausea or vomiting, abdominal pain. She is passing flatus. However, denies any bowel movements. She is taking senna per primary service. She denies any chest pain, shortness of breath, lightheadedness, palpitations. Morrison catheter discontinued Pertinent positives and negatives as discussed above, a complete review of systems was performed and all other systems are negative. Vitals Signs Reviewed. General: nontoxic, no distress, appears at stated age Derm: warm, dry, dressing clean, dry, and intact Head: atraumatic, normocephalic, symmetric Eyes: EOMI, no lid lag, anicteric sclera, pupils equal round reactive to light ENT: Nose and ears atraumatic Neck: No thyromegaly, supple Mouth: no lip lesion, mucus membranes moist Cardiovascular: S1S2 reg, no murmur, no edema Lungs: clear to auscultation bilateral, no rhonchi, no rales, no wheeze, no accessory muscle use Abdominal: soft, distended, nontender to palpation, no guarding, no appreciable organomegaly Ext: no gross muscle atrophy, muscle strength muscle strength 5 out of 5 in all 4 extremities, no contractures Neuro: CN II-XII grossly intact Psych: Alert, oriented, appropriate affect Assessment and Plan: Status post spinal surgery -Defer pain management, DVT prophylaxis primary surgical service -Bowel regimen per surgery -PT/OT History of Hypertension -Currently holding lisinopril Nicotine dependence -Counseled regarding smoking cessation -Nicotine patch Chronic medical problems: Dyslipidemia History of breast cancer Depression/anxiety Neuropathy -Continue home medications Thank you for allowing us to participate in the care of this pleasant patient. Do not hesitate to contact us with questions. Someone can be reached from the [facility] hospitalist group all hours of the day at [phone] or via [employer]. Objective - Vital Signs Vital signs: Vital Signs Temp 98.0 F 12/14/22 07:12 Pulse 84 12/14/22 07:12 Resp 16 12/14/22 07:12 BP 98/64 12/14/22 07:12 Pulse Ox 95 12/14/22 07:12 FiO2 Intake & Output 12/13/22 12/14/22 12/14/22 18:59 06:59 18:59 Intake Total 1080 Output Total 1070 149 Balance 10 -149 Intake: Oral 1080 Output: Drainage 120 149 Lower Back 120 149 Urine 950 Other: Voiding Method Toilet # Voids 3 3 2 # Bowel Movements 0 - Labs CBC & Chem 7: 12/13/22 05:33
[2022-12-14] MEDS: LACTATED RINGERS 1,000 ML IV SCH (16:34)
[2022-12-14] MEDS: buPROPion XL 300 MG TAB.ER.24H PO SCH (20:56)
[2022-12-14] MEDS: ATORVASTATIN 20 MG TAB PO SCH (20:56)
[2022-12-14] MEDS: PREGABALIN 75 MG CAP PO SCH (20:56)
[2022-12-14] MEDS: TAMOXIFEN 10 MG TAB PO SCH (20:57)
--- NOTE | 2022-12-14 21:20 | PN ---
PROGRESS NOTE DATE OF SERVICE: 12/13/2022 CHIEF COMPLAINT: Status post lumbar spine procedure for spinal stenosis. HISTORY OF PRESENT ILLNESS: This lady has been doing fairly well. Her pain is under good control and vital signs are normal. She has had no fever, chills, shortness of breath, etc. PHYSICAL EXAMINATION: VITAL SIGNS: Normal. HEAD, EARS, EYES, NOSE, MOUTH AND THROAT: Normal. CHEST: Clear. CARDIAC: Normal. ABDOMEN: Soft. BACK: Dressing in the back is dry. IMPRESSION: 1. Status post lumbar spine decompression for spinal stenosis. 2. Chronic obstructive pulmonary disease. PLAN: No change in program. She is doing well. MMODL / IJN: [id number] /
--- NOTE | 2022-12-14 21:44 | CONS ---
CONSULTATION CHIEF COMPLAINT: Spinal stenosis. HISTORY OF PRESENT ILLNESS: First known admission for la for this 52-year-old white female who has spinal stenosis and has come in for decompressive laminectomy. She has the only complication of COPD. She has a history of hypertension. She has not had any problems lately including chest pain, neurologic problems, shortness of breath, cough, hemoptysis, fever, chills, urinary symptoms, etc. Past medical history, family history and personal and social histories revealed that she is allergic to Flexeril. She is on Lyrica 150 mg twice a day, Wellbutrin XR 300 mg once a day, enoxaparin 20 mg every day at night, atorvastatin 20 mg a day, lisinopril 10 mg once a day, Zyrtec 10 mg once a day. Remainder of her history is unremarkable. She does continue to smoke. She drinks alcohol occasionally. PHYSICAL EXAMINATION: VITAL SIGNS: Blood pressure is 128/80 with a pulse of 83, respirations of 18. The patient is afebrile. GENERAL: She appeared to be in no acute distress. SKIN: Color is normal. HEAD, EARS, EYES, NOSE, MOUTH AND THROAT: Normal. NECK: Veins are not distended. CHEST: Clear. CARDIAC: Demonstrated sinus rhythm. ABDOMEN: Soft and nontender. EXTREMITIES: Normal. NEUROLOGIC: She is intact. The dressing on her LS spine is dry. Neurologically, she is intact. IMPRESSION: 1. Spinal stenosis. 2. History of hypertension. 3. Chronic obstructive pulmonary disease. 4. Hyperlipidemia. RECOMMENDATIONS: None. She is doing well. MMODL / IJN: [id number] /
--- NOTE | 2022-12-14 21:54 | PN ---
PROGRESS NOTE DATE OF SERVICE: 12/14/2022 CHIEF COMPLAINT: Status post LS spine decompression. HISTORY OF PRESENT ILLNESS: This lady is doing well other than the discomfort. She denies any fever, chills, chest pain, shortness of breath, abdominal pain, etc. PHYSICAL EXAMINATION: CHEST: Clear. CARDIAC: Normal. ABDOMEN: Soft, nontender. IMPRESSION: 1. Status post decompressive laminectomy. 2. Chronic obstructive pulmonary disease. PLAN: Continue recovery, and home when cleared by Orthopedics. MMODL / IJN: [id number] /
[2022-12-15] MEDS: oxyCODONE-APAP 7.5-325MG 1 EACH TAB PO PRN ×2 (04:32→10:39)
[2022-12-15] MEDS: LACTATED RINGERS 1,000 ML IV SCH (05:41)
[2022-12-15] MEDS: ACETAMINOPHEN TAB 325 MG TAB PO SCH (05:57)
[2022-12-15 08:21] VITALS: BP 104/67; PULSE 53; RESP 20; TEMP 98.2
[2022-12-15] MEDS: PREGABALIN 75 MG CAP PO SCH (09:05)
[2022-12-15] MEDS: polyethylene glycoL 3350 17 GM POWD.PACK PO SCH (09:05)
[2022-12-15] MEDS: NICOTINE 14MG/24HR PATCH TRANSDERM SCH (09:05)
--- NOTE | 2022-12-15 09:42 | P.PN ---
Subjective Progress Note Date: 12/15/22 Principal diagnosis: Lumbar spondylosis Lumbar stenosis Bilateral lower extremity radiculopathy Bilateral lower extremity weakness Patient seen and examined at bedside this morning. Minimal assistance provided for patient to sit at side of bed. Surgical dressing changed this morning, Hemovac discontinued. Incision is clean and dry and well approximated, pee intact. Overview of discharge instructions discussed. Patient states she has noticed improvement in the radicular pain into her bilateral lower extremities. Patient has been ambulatory with an room with walker, tolerating well. Patient has been afebrile, denies nausea/vomiting, or chest pain. Objective - Vital Signs Vital signs: Vital Signs Temp 98.2 F 12/15/22 07:16 Pulse 53 L 12/15/22 07:16 Resp 20 12/15/22 07:16 BP 104/67 12/15/22 07:16 Pulse Ox 97 12/15/22 07:16 FiO2 Intake & Output 12/14/22 12/15/22 12/15/22 18:59 06:59 18:59 Intake Total 1080 Output Total 80 60 Balance 1000 -60 Intake: Oral 1080 Output: Drainage 80 60 Lower Back 80 60 Other: Voiding Method Toilet # Voids 2 1 # Bowel Movements 0 - Exam Physical Examination General: The patient is awake and alert, in no acute distress Skin: Skin is warm and dry with no obvious rashes or lesions. Hairy patches absent, no dorsal skin dimples, no cafe au lait spots. Surgical incision to Lumbar region, dressing CDI. Hemovac discontinued. Eye: Pupils are equal, round and reactive to light, extra-ocular movements are intact; there is normal conjunctiva bilaterally. Neck: The neck is supple, there is no tenderness and ROM intact. Cardiovascular: There is a regular rate and rhythm. No murmur, rub or gallop is appreciated. Respiratory: Lungs are clear to auscultation, respirations are non-labored, breath sounds are equal. Gastrointestinal: Soft, non-distended, non-tender abdomen. Back: There is no tenderness to palpation in the midline, paralumbar, parathoracic or buttocks region. There is no obvious deformity . Musculoskeletal: ROM limited secondary to pain and stiffness from surgical procedure. Muscle strength in all major muscle groups of bilateral upper extremities 5/5, bilateral lower extremities 4/5. Neurological: CN 2-12 intact. There are no obvious motor or sensory deficits. Movement and coordination equal and intact. Sensory exam to light touch intact C5-T1 and intact from L2-S1. Reflexes 2/4 in bilateral upper and lower extremities. Negative Hoffmans, babinski, and clonus signs. Psychiatric: Cooperative, appropriate mood & affect, normal judgment. - Labs CBC & Chem 7: 12/13/22 05:33 Assessment and Plan Assessment: Postop day 3: L3-L5 revision with decompression and fusion Lumbar spondylosis Lumbar stenosis Bilateral lower extremity radiculopathy Bilateral lower extremity weakness Plan: -Appreciate exchange consultant and team management. -Activity: Ambulate QID, OOB all meals, up and about, limit lifting bending twisting to less than 5 lbs. Use walker or cane if needed for stability. -Daily PT/OT, increase ambulation strength and balance. -LSO Brace when up and about, not needed in bed or chair *LSO brace provided from office -Pain control: Adequate at this time -Meds: reviewed -GI ppx: senna, Miralax -DVT PPX: Heparin -Hygiene: Shower today. Maintain dressing clean and dry. Meticulous cleaning after BMs away from the incision site -Encourage IS 10x/hr -Dispo: Anticipate discharge home today *I reviewed and discussed this case with my attending Dr. Oliver, whom has reviewed this chart and films and is in agreement with assessment and plan of care as outlined above. I have personally seen and examined the patient, performed the documentation and the assessment and plan as written. Number of minutes spent on the visit: 15m.
--- NOTE | 2022-12-15 10:24 | P.PN ---
Subjective Progress Note Date: 12/15/22 Subjective: Patient seen and examined at bedside. No acute events overnight. Back pain has improved She denies any chest pain, shortness of breath, lightheadedness, palpitations, abdominal pain, nausea, vomiting, diarrhea, constipation, or urinary complaints Pertinent positives and negatives as discussed above, a complete review of systems was performed and all other systems are negative. Vitals Signs Reviewed. General: nontoxic, no distress, appears at stated age Derm: warm, dry, dressing clean, dry, and intact Head: atraumatic, normocephalic, symmetric Eyes: EOMI, no lid lag, anicteric sclera, pupils equal round reactive to light ENT: Nose and ears atraumatic Neck: No thyromegaly, supple Mouth: no lip lesion, mucus membranes moist Cardiovascular: S1S2 reg, no murmur, no edema Lungs: clear to auscultation bilateral, no rhonchi, no rales, no wheeze, no accessory muscle use Abdominal: soft, distended, nontender to palpation, no guarding, no appreciable organomegaly Ext: no gross muscle atrophy, muscle strength muscle strength 5 out of 5 in all 4 extremities, no contractures Neuro: CN II-XII grossly intact Psych: Alert, oriented, appropriate affect Assessment and Plan: Status post spinal surgery -Defer pain management, DVT prophylaxis primary surgical service -Bowel regimen per surgery -PT/OT History of Hypertension -Currently holding lisinopril Nicotine dependence -Counseled regarding smoking cessation -Nicotine patch Chronic medical problems: Dyslipidemia History of breast cancer Depression/anxiety Neuropathy -Continue home medications Lisinopril discontinued at discharge. Patient will follow-up with PCP for further blood pressure medications. Patient is medically optimized for discharge home. Thank you for allowing us to participate in the care of this pleasant patient. Do not hesitate to contact us with questions. Someone can be reached from the [facility] hospitalist group all hours of the day at [phone] or via [employer]. Objective - Vital Signs Vital signs: Vital Signs Temp 98.2 F 12/15/22 07:16 Pulse 53 L 12/15/22 07:16 Resp 20 12/15/22 07:16 BP 104/67 12/15/22 07:16 Pulse Ox 97 12/15/22 07:16 FiO2 Intake & Output 12/14/22 12/15/22 12/15/22 18:59 06:59 18:59 Intake Total 1080 Output Total 80 60 Balance 1000 -60 Intake: Oral 1080 Output: Drainage 80 60 Lower Back 80 60 Other: Voiding Method Toilet # Voids 2 1 # Bowel Movements 0 - Labs CBC & Chem 7: 12/13/22 05:33
--- NOTE | 2022-12-16 10:46 | P.OP ---
Date of Procedure: 12/12/22 Preoperative Diagnosis: 1. Pseudoarthrosis L4-5 2. ASD L3-4 3. Spondylosis with stenosis L3-5 4. Neurogenic claudication 5. LE weakness with radiculopathy Postoperative Diagnosis: 1. Pseudoarthrosis L4-5 2. ASD L3-4 3. Spondylosis with stenosis L3-5 4. Neurogenic claudication 5. LE weakness with radiculopathy Procedure(s) Performed: 1. Posteriolateral and interbody fusion L3-4 () 2. Revision posteriolateral fusion L4-5 () 3. Removal of hardware L4-5 (87055) 4. Instrumentation L3-5 (36993) 5. Insertion of biomechanical device L3-4 (36180) 6. Bilateral revision laminectomy complete facetectomy and foraminotomy L3-5 (29670, 13623) 7. Exploration of fusion L4-5 (56136) Use of IONM Implants: -Life spine screw and azucena system -Globus Sable cage -Autograft, allograft, MagnatOs Anesthesia: GETA Surgeon: José Oliver Nurse Extern #1: Chuck Beaulieu (Was present and assisted with all aspects of the case from positioning to dressing placement. ) Estimated Blood Loss (ml): 300 IV fluids (ml): 1,200 Urine output (ml): 300 Pathology: none sent Condition: stable Disposition: PACU Indications for Procedure: Ms. Ranulfo Crews is presenting for evaluation of low back pain. It was my pleasure to have seen and examined Ms. Ranulfo Crews. In our visit today we have had a chance to go over subjective complaints, physical examination findings and treatments including the natural course history without intervention and various interventional options. The patients imaging demonstrates: XRay Lumbar Multiview (AP, Lateral, Flexion, Extension) with AP pelvis; 5 views taken at [facility] on 08/14/22 of Spine: images reviewed. s/p L4-5 TLIF at outside facility. Hardware in good position minimal anterior fusion noted, some posterior facet fusion noted. No fractures. Overall alignment maintained. Some ASD changes with spondylosis at L3-4 and L5-S1. Residual Grade I listheis at L4-[address] [facility] at [facility] from 09/18/2022 of Lumbar Spine: IMages reviewed with the patient. This demonstrates post operative changes at L4-5 with TLIF construct in position. There is minimal anterior fusion noted at this level, but there is some ongrowth of the cage noted. No posteriolateral fusion noted. No fractures. Hardware in position and does not appear loose or migrated. There is ASD at L3-4 with disc herniation causing velma based stenosis centrall and mild foraminal. There is facet hypertrophy contributing to moderate central stenosis as well. There is ASD at L5-S1 as well. There is facet hypertrophy to a lesser extent with some disc collapse causing b/l foraminal stenosis. No fractures. No lesions. MRI scan without contrast from 11/07/22 at [facility] of the lumbar spine demonstrates: Images Reviewed in office with the patient. L1-2 Mild spondylosis, mild stenosis L2-3 Mild spondylosis with stenosis L3-4 Spondylosis, severe, disc height loss, HNP causing central and b/l foraminal stenosis, facet arthropathy and bogginess L4-5 Post surgical changes, artifact, residual stenosis noted, likely pseudoarthrosis L5-S1 Mild spondylosis with ASD, height loss, facet arthropathy Alignment: PI:NA LL: 48 Coronal alignment: Maintained Fracture: None Lesion: None On physical exam, Ms. Ranulfo Crews demonstrates severe low back pain with restricted lumbar ROM. Patient does also demonstrate left lower extremity radiculopathy with diffuse weakness and L3-L4 dermatomal deficits. Overall functional testing limited due to pain along with unstable gait. Patient ambulating with the use of a walker. I have explained to the patient that as their condition progresses it will cause further neurological deficits and eventual paralysis. Based on the patients imaging, physical exam, and the rapid progression and disabling nature of their symptoms, at this time I recommend surgery in the form or a: lumbar (L3-L5) revision decompression and fusion . I discussed the risk and benefits of this procedure at length with Ms. Ranulfo Crews. The patient and her family agreed to considered pursuing the procedure abovementioned. Prior to surgery, she should follow up with her PCP (Cardio, ID, IM etc) for clearance. Questions were invited and answered, and the patient wishes to proceed as outlined below. Currently, I am recommendin.lumbar (L3-L5) revision decompression and fusion Description of Procedure: The patient was seen and examined in the preoperative area.All preoperative protocols were followed.Informed consent was obtained, risks and benefits of the procedure were discussed at length.Risks including bleeding infection damage to the surrounding tissue and risk of re-operation were discussed with the patient.Risk of anesthesia up to and including was discussed with the patient.These are outlined in the risk review.They were willing to accept these risks and all the risks of surgery.The patient was given a weight-based dose of antibiotics in the form of 2 g Ancef.The patient was seen and evaluated by the anesthesia team who deemed them fit for surgery. The site was marked, the patient was willing to proceed with the procedure. The patient was transferred to the operative suite by the Department of anesthesia. They were then drifted off to sleep by the department anesthesia and GETA was performed. The patient tolerated this well. Morrison catheter was placed by nursing staff, a-traumatically. Once confirmation of lines and ventilation the patient was transferred to a prone Carlos table very carefully. All bony prominences including wrists, elbows, axilla, chest, hips, and thighs, and feet were padded very well. Special attention was paid to the genitalia, and these were padded accordingly. SCDs were placed on bilateral lower extremities and were connected. Arms were well padded and placed on arm boards up and out in the 90/90 position. Once in position, again we confirmed good ventilation capabilities and that lines were running appropriately. The patients Lumbar spine was then exposed. 1010s were placed outlining the incision site. Standard alcohol was used to clean the incision site and allowed to dry. C-arm was used to needle localize the pedicles at L3-5 and bio-carol the patient and confirm level for incision which was marked with a skin marker. Operative briefing was performed with all teams and everyone in agreement to proceed. The patient was then prepped and draped in a normal sterile fashion. Timeout was then performed, and all parties agreed with the procedure to be performed. Midline skin incision was made over the previously bio-marked area and dissection taken down over the SP of L3-L5. L3-5 was taken out over facet joints and TPs and a penfield 4 used to carol the L4 pedicle. Lateral image used to confirm levels. Once confirmed, screws were removed from L4-5 b/l along with rods. The L4 screws were loose b/l and when removed there was still motion at this segment. The fusion was explored and there was minimal bone formation posteriorly. We then proceeded to be place screws b/l at pedicles from L3-5 u sing Lateral C arm and free hand technique. Marleni was used to create air force pilot hole, gear shift passed then a ball tip feeler to confirm with in the pedicles. Screw was measured and placed. Once screws were placed they were confirmed to be in good position using AP and Lateral fluoroscopy. The wound was then irrigated. Screws were tested and all tested above 20 mA. We then proceeded to decompres hien and cage placement. Attention was then turned to inter-body fusion at L3-4. Bilateral laminectomy, complete facetectomy and foraminotomy performed at L3-4 using high speed marleni and Kerrison rongure. The ligamentum was removed and dural sac decompressed. Exiting and traversing roots visualized and decompressed. Neural elements were then protected, and disc space accessed with an osteotome. Sequential shaving then done under lateral imaging and complete discectomy performed using percy, pituitary and curette. Once good bleeding endplates accomplished and good height yarsani with trials, a combination of autograft, allograft and synthetic placed anterior in the disc space. The cage was then selected and impacted into place under lateral imaging. The cage was then expanded restoring height, lordosis and alignment. The cage was backfilled with bone graft through a funnel. The museum tour guide removed and the area inspected. Good cage placement, stable cage and no injuries. Area was irrigated copiously, and meticulous hemostasis achieved. The tubular retractor was then removed under direct visualization. Attention was then turned to revision decompression at L4-5. Bilateral laminectomy, complete facetectomy and foraminotomy performed at L4-5 using high speed marleni and Kerrison rongure. The ligamentum was removed and dural sac decompressed. Exiting and traversing roots visualized and decompressed. Area was irrigated copiously, and meticulous hemostasis achieved. Rods were then sized and selected and placed into L5 screws b/l. Set screws locked these in place and then sequentially reduced into L4 and L3 b/l for reduction of listhesis. This was accomplished. Set screws were then all placed and final tightened. A cross link was selected and placed and final tightened. TPs were then decorticated with high speed marleni. The wound was the irrigated with 3L acne irrigation, 3L gentamicin irrigation and 3L NSS. Surgical was placed over the dura. Autograft and MagnatOs then placed in the posteriolateral gutters and impacted into place. Deep drain placed and secured to the skin. 2 g Vancomycin powder placed in the wound bed. Final images confirmed good placement of hardware and good reduction of listhesis as well as yarsani of height and lordosis. Facia was then closed with #1 PDS. Deep subq closed with 0 Vicryl. Superficial subq closed with 2-0 Vicryl and skin with pee. Wound edges approximated very well. Wound was then cleaned with alcohol and dried. Wounds dressed with Optifoam dressings. The patient was then transferred off the table back to their hospital bed a- traumatically. Drain continued to hold suction.They were extubated by the department of anesthesia.They were then transferred to PACU in stable co ndition having tolerated the procedure with no complications.
--- NOTE | 2022-12-16 23:37 | PN ---
PROGRESS NOTE DATE OF SERVICE: 12/15/2022 CHIEF COMPLAINT: Spinal stenosis. HISTORY OF PRESENT ILLNESS: This lady is doing well. Pain is under good control. She has had no fever, chills, nausea, vomiting, etc. PHYSICAL EXAMINATION: VITAL SIGNS: Normal. CHEST: Clear. CARDIAC: Normal. ABDOMEN: Soft, nontender. IMPRESSION: Status post decompression laminectomy for spinal stenosis. PLAN: Probably home today. MMODL / IJN: [id number] /
== END 2022-12-15 11:05 | disposition home or self-care (01) | DRG 455 ==
LOC: 2ORMAIN 05:47 → 4SSUR 10:36
PROVIDERS: ADMIT Orthopaedic Surgery; ATTEND Orthopaedic Surgery
PROC: 0SG0071 Fusion of Lumbar Vertebral Joint with Autologous Tissue Substitute, Posterior Approach, Posterior Column, Open Approach (ICD-10-PCS; 2022-12-12)
PROC: 0SP004Z Removal of Internal Fixation Device from Lumbar Vertebral Joint, Open Approach (ICD-10-PCS; 2022-12-12)
PROC: 01NB0ZZ Release Lumbar Nerve, Open Approach (ICD-10-PCS; 2022-12-12)
PROC: 00NY0ZZ Release Lumbar Spinal Cord, Open Approach (ICD-10-PCS; 2022-12-12)
PROC: 3E0U0GB Introduction of Recombinant Bone Morphogenetic Protein into Joints, Open Approach (ICD-10-PCS; 2022-12-12)
PROC: 4A11X4G Monitoring of Peripheral Nervous Electrical Activity, Intraoperative, External Approach (ICD-10-PCS; 2022-12-12)
PROC: 8E0WXBG Computer Assisted Procedure of Trunk Region, With Computerized Tomography (ICD-10-PCS; 2022-12-12)
PROC: 0SG00AJ Fusion of Lumbar Vertebral Joint with Interbody Fusion Device, Posterior Approach, Anterior Column, Open Approach (ICD-10-PCS; principal; 2022-12-12 11:45)
DX: M96.0 Pseudarthrosis after fusion or arthrodesis (principal); F12.929 Cannabis use, unspecified with intoxication, unspecified; J44.9 Chronic obstructive pulmonary disease, unspecified; M47.26 Other spondylosis with radiculopathy, lumbar region; M48.062 Spinal stenosis, lumbar region with neurogenic claudication; M51.16 Intervertebral disc disorders with radiculopathy, lumbar region; K59.00 Constipation, unspecified; I10 Essential (primary) hypertension; E78.5 Hyperlipidemia, unspecified; G62.9 Polyneuropathy, unspecified; F32.A Depression, unspecified; F41.9 Anxiety disorder, unspecified; Z98.1 Arthrodesis status; Z79.899 Other long term (current) drug therapy; Z85.3 Personal history of malignant neoplasm of breast; Z90.710 Acquired absence of both cervix and uterus; Z88.8 Allergy status to other drugs, medicaments and biological substances; Z91.041 Radiographic dye allergy status; Z71.6 Tobacco abuse counseling
CPT/HCPCS: 72100; 72131; 85025; 86850; 86900; 86901; 94760

== ENCOUNTER → 2023-12-17 | Outpatient (CLI) | payer OTHER ==
--- NOTE | 2023-12-17 13:06 | MR ---
EXAMINATION TYPE: MR lumbar spine wo con DATE OF EXAM: 12/17/2023 10:16 AM CLINICAL INDICATION:Female, 53 years old with history of M54.50 LOW BACK PAIN; Low back pain, Fell, H x of back surgery COMPARISON: None TECHNIQUE: Multi planar, multi sequence imaging was performed utilizing: T1-weighted, T2-weighted, a nd turbo inversion recovery imaging of the lumbar spine. IV Contrast: (None if empty) FINDINGS: Alignment: The lumbar vertebral bodies have preserved heights and alignment. Cord: The conus medullaris and the distal spinal cord appear unremarkable with regards to their signa l intensity and morphology. Bones/Discs: Multilevel disc degeneration changes with osteophyte formation, disc space narrowing, Sc hmorl's nodes, and facet joint arthropathy. No abnormal inversion recovery signal to suggest bony howie ma. Intervertebral disc signal is maintained. Fixation hardware at L3, L4 and L5 is present which [place] its evaluation. T12-L1: No evidence of significant spinal canal stenosis or neural foraminal stenosis. L1-L2: No evidence of significant spinal canal stenosis or neural foraminal stenosis. L2-L3: Disc bulge and facet joint arthropathy result in mild spinal canal and moderate bilateral neur al foraminal stenosis. L3-L4: Limited evaluation due to susceptibility artifact. No evidence of significant spinal canal bertha nosis. Facet joint arthropathy mild bilateral neural foraminal stenosis. L4-L5: Limited evaluation due to susceptibility artifact. No evidence of significant spinal canal bertha nosis. Facet joint arthropathy mild bilateral neural foraminal stenosis. L5-S1: The disc is rounded posterior morphology without significant spinal canal stenosis. Facet join t arthropathy with mild bilateral neural foraminal stenosis. No significant spinal canal or neural foraminal stenosis in the remainder of the visualized levels. Other findings: Surgical bed probable seroma without definitive truncation to the thecal sac measuri ng at least 5.5 x 1.9 cm. IMPRESSION: 1. No definitive evidence of disc herniation or significant spinal canal stenosis. 2. Multilevel disc degeneration with associated osteoarthritic changes. No foraminal stenosis worse at L2-L3 with moderate bilateral. 3. Surgical bed probable seroma.
== END | disposition home or self-care (01) ==
LOC: RADMRIMAIN 09:21
PROVIDERS: ATTEND Orthopaedic Surgery
DX: M51.36 Other intervertebral disc degeneration, lumbar region (principal); M47.816 Spondylosis without myelopathy or radiculopathy, lumbar region; Z98.890 Other specified postprocedural states
CPT/HCPCS: 72148

== ENCOUNTER → 2024-02-12 | Outpatient (CLI) | payer OTHER | END | disposition home or self-care (01) | LOC: LABPAT 11:05 | PROVIDERS: ATTEND Orthopaedic Surgery | DX: Z01.812 Encounter for preprocedural laboratory examination (principal); M48.061 Spinal stenosis, lumbar region without neurogenic claudication; M51.36 Other intervertebral disc degeneration, lumbar region; Z22.322 Carrier or suspected carrier of Methicillin resistant Staphylococcus aureus | CPT/HCPCS: 36415; 86850; 86900; 86901; 87070 ==

== ENCOUNTER 2024-02-23 05:45 | Inpatient (IN) | payer OTHER ==
--- NOTE | 2024-02-21 10:33 | P.HPOR ---
History of Present Illness H&P Date: 02/12/24 .D:Date: 02/12/24 : 10:39am .T:Title: [facility] HISTORY AND PHYSICAL Allergies: Age: 53 year Height: 5'2" Weight: 165 lbs BMI: 26.57 kg/m2 Occupation: Disabled VAS: 9 ASSESSMENT: 1. s/p L3-5 revision decompression and fusion 2. 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 Bilateral lower extremity radiculopathy and weakness 4. Low back pain 5. s/p fall from standing Spine Surgery Risk Review Ms. Ranulfo Crews is presenting for evaluation of low back and bilateral lower extremity pain, bilateral lower extremity numbness, tingling, and weakness . It was my pleasure to have seen and examined Ms. Ranulfo Crews. In our visit today we have had a chance to go over subjective complaints, phy sical examination findings and treatments including the natural course history without intervention and various interventional options. The patients imaging demonstrates: XRay taken on 12/10/23 of Lumbar Spine; 2 views (AP, Lateral) was reviewed by Dr. Randall and indicates: L2-3 ASD with posterior and lateral collapse with retrolisthesis, foraminal stenosis and facet arthropathy. Likey stenosis in this area related to disc herniation and ligamental hypertrophy suspected given pts radicular sx, MRI or CT myelogram would elucidate. No acute fractures. Post surgical changes from L3-[address] [facility]: - Images reviewed with the patient. These images demonstrate post operative changes at L4-5 with TLIF construct in position. There is minimal anterior fusion noted at this level, but there is some on growth of the cage noted. No posterolateral fusion noted. No fractures. Hardware in position and does not appear loose or migrated. There is ASD at L3-4 with disc herniation causing velma based stenosis central and mild foraminal. There is facet hypertrophy contributing to moderate central stenosis as well. There is ASD at L5-S1 as well. There is facet hypertrophy to a lesser extent with some disc collapse causing b/l foraminal stenosis. No fractures. No lesions. MRI scan without contrast from 11/07/22 at [facility] of the lumbar spine demonstrates: - Images Reviewed in office with the patient. L1-2 Mild spondylosis, mild stenosis L2-3 Mild spondylosis with stenosis L3-4 Spondylosis, severe, disc height loss, HNP causing central and b/l foraminal stenosis, facet arthropathy and bogginess L4-5 Post surgical changes, artifact, residual stenosis noted, likely pseudoarthrosis L5-S1 Mild spondylosis with ASD, height loss, facet arthropathy Alignment: PI:NA LL: 48 Coronal alignment: Maintained Fracture: None Lesion: None On physical exam, Ms. Ranulfo Crews demonstrates: A continued pressure-like pain throughout the low back that radiates down into the bilateral lower extremities. She notes her pain terminates around the bilateral calf. She reports experiencing tingling throughout the right lower extremity and numbness throughout the left lower extremity. She notes frequent occurances of intense muscle spasms at night that wake her from sleep. She does note that her low back and lower extremity pain was significantly improved immediately following her procedure approximately 1 year ago, though her pain has been gradually worsening over the last 3 to 4 months. The patient states that her current symptoms worsen after prolonged walking or standing. The patient reports experiencing severe sleep disturbances related to her ongoing pain and associated symptoms. She notes intense "cracking sensations" upon rolling over in bed. I have explained to the patient that as their condition progresses it will cause further neurological deficits and eventual paralysis. Based on the patients imaging, physical exam, and the rapid progression and disabling nature of their symptoms, at this time I recommend surgery in the form of a: Stage I: L2-3 lateral interbody fusion Stage II: Posterior L2-3 decompression and fusion. I discussed the risk and benefits of this procedure at length with Ms. Ranulfo Crews. The patient agreed to considered pursuing the procedure abovementioned. Prior to surgery, she should follow up with her PCP (Cardio, ID, IM etc) for clearance. Questions were invited and answered, and the patient wishes to proceed as outlined below. Currently, I am recommendin.Stage I: L2-3 lateral interbody fusion Stage II: Posterior L2-3 decompression and fusion 2.Review of surgical risks and benefits as well as an educational packet on the proposed surgical procedure. Risks: All surgical procedures come with inherent risks, including those related to positioning, anesthesia, intraoperative findings, and postoperative complications. It is important to understand that surgery does not come with any guarantee of a successful outcome as complications and adverse events are always possible. The patient was given a handout in office today discussing the surgical procedure and risks associated with the intervention, both of which were discussed with the patient. These risks include but are not limited to the following: * Experiencing same, different or even worse symptoms in back, neck, arms, or legs compared to before surgery. Requiring further surgery or other forms of treatment presently or at some time in the future at same or other levels of the intended spine surgery. On an extreme but fortunately relatively rare basis severe complication such as blindness, stroke, heart attack, temporary and/or permanent nerve injury, paralysis, coma, or may occur, sometimes without known explanation. Surgical complications may include but are not limited to risk of infection, fluid accumulation in the surgical dissection site, including a seroma or hematoma, that requires additional surgery, wound drainage, bleeding, new numbness or weakness, vision changes/loss, spinal fluid leakage, non-healing and/or infected incision, headaches, difficulty or inability to swallow, hoarseness, hemopneumothorax, pneumothorax, impotence, retrograde ejaculation, vaginal dryness; injury to nerves, spinal cord, blood vessels, lymphatics or ot her vital organs (i.e., bowel injury, injury to the great vessels); heterotopic bone formation; complications related to the hardware such as screws, rods, cages including misplaced hardware, device failure, instrumentation at the wrong spine level, hardware fracture/breakage, or hardware loosening; vertebral failure of the spinal column above or below the newly placed hardware; retained surgical instrumentations or devices and the need for further surgery. * Medical risks of the planned spine surgery include but are not limited to generalized Infections to the whole body or local areas outside of the surgical site (sepsis), heart attack, bleeding, anaphylaxis, meningitis, seizure, epilepsy, hearing loss, burn tracy, laceration of the head or other areas of the body, bruising, hypersensitivity of the skin, bladder over distension; allergic reaction; shoulder injury related to positioning; fat, blood and air clots to other areas of the body like heart, lungs, brain; failure of internal organs such as lungs, kidneys, liver and excessive bleeding. If blood transfusions are necessary, note that transfusions may cause intolerance reactions such as anaphylaxis or other complex reactions. Despite best efforts, the results of spine surgery might not heal in terms of bone, soft tissues such as skin, fascia, ligaments, and joints. Additionally, in order to achieve best possible results, spine surgery may be carried out beyond the initially planned levels and involve decompression, fusion including insertion of hardware at levels other than the original intended area of surgical interest change some portions of the procedure in order to ensure the best possible outcomes. With spine surgery and spinal fusion, there are different off label uses of instrumentation (devices, implants and hardware) as well as biological substances (bone morphogenic proteins, demineralized bone matrix) as well as using extra bone from allograft sources (i.e. cadaver bone) or autograft (iliac crest bone, ribs, or the spine itself). The patient has been given information about these practices and their inherent risks and benefits. [facility] is an educational center that serves as a training facility for neurosurgical and orthopedic AUTOMATIC EQUIPMENT TECHNICIAN and Nursing students. Physician assistants are medically trained surgical providers who function in the outpatient, inpatient, and operating room setting under the direct supervision of the attending surgeon. [facility] has multiple operating rooms with single and overlapping rooms running daily. They currently function under the required guidelines as produced by the [facility] Finance Committee with regards to the overlapping rooms and will continue to comply with changes to this policy as they occur. The requirements include and are complied with as follows: (1) the critical portions of the overlapping rooms will not occur at the same time, (2) the attending physician will be physically present during the critical portions of the procedure and immediately available during the entire case, and (3) a back-up attending is designated should the primary attending not be immediately available. The patient has had a chance to review all the listed information, has been given print outs detailing this information, and has had all his/her questions answered to their satisfaction. It was my pleasure to have seen and examined Ms. Ranulfo Crews. In our visit today we have had a chance to go over my understanding of our patient's current condition, the natural course history without intervention and various interventional options. Questions were invited and answered, and the patient wishes to proceed as outlined above. I have seen and examined the patient for 25 minutes and we have spent more than 50% of the time in repeat and detailed counseling about the patient's condition, its natural course history with out and as much as can be predicted with surgery and re-review of various surgical treatment options. In conclusion, Ms. Ranulfo Crews requested we proceed with the above suggested surgery and are willing to accept risks and limitations of the suggested surgery as nature of the disease process and our best attempts at treatment for the condition. Thank you again for allowing us to be part of your patient's care. Please don't hesitate to contact me if you have any further questions. FOLLOW UP: Post Procedure PLAN AT NEXT VISIT: X-Rays of Lumbar Spine (AP & Lateral) PATIENT EDUCATION: Medications Reviewed: YES In our visit today Ms. Ranulfo Crews and I have had a chance to go over my understanding of the patient's current condition, the natural course history without intervention and various interventional options. Questions were invited and answered, and the patient wishes to proceed as outlined above. I will be sure to keep you updated after Ms. Ranulfo Crews returns here for further follow-up. Thank you again for your referral. Please do not hesitate to contact me if you have any further questions. Signed and authenticated by: José Melendez [facility] [address] [place], [place] [id number] This message is confidential, intended only for the named recipient(s) and may contain information that is privileged or exempt from disclosure under applicable law. If you are not the intended recipient(s), you are notified that the dissemination, distribution or copying of this information is strictly prohibited. If you received this message in error, please notify the sender then delete this message. # SIGNED BY José Oliver (GOO)02/12/2024 11:32AM Past Medical History Past Medical History: Cancer, Hyperlipidemia, Hypertension, Musculoskeletal Disorder Additional Past Medical History / Comment(s): RIGHT breast cancer at age 37, Brain Cancer (zachery-cytoma) at age 8.5 years, History of Any Multi-Drug Resistant Organisms: None Reported Past Surgical History: Back Surgery, Breast Surgery, Section, Hysterectomy, Orthopedic Surgery Additional Past Surgical History / Comment(s): D & C, Left foot ortho sx, Hysterectomy (still has ovaries), multiple laparoscopies secondary to endometriosis, right lumpectomy, back surg. x 2 Past Anesthesia/Blood Transfusion Reactions: No Reported Reaction Additional Past Anesthesia/Blood Transfusion Reaction / Comment(s): no problems with blood transfusion in 1980 Smoking Status: Current every day smoker - Past Family History Mother Family Medical History: Cancer Additional Family Medical History / Comment(s): Mother, Maternal grandmother and Great maternal grandmother all were dx with Breast Cancer Son(s) Family Medical History: Blood Disorder, Deep Vein Thrombosis (DVT) Additional Family Medical History / Comment(s): left leg removed due to not enough blood flow to leg Medications and Allergies Home Medications Medication Instructions Recorded Confirmed Type Atorvastatin [Lipitor] 20 mg PO HS 01/11/18 02/16/24 History Cetirizine HCl [Zyrtec] 10 mg PO HS 12/09/22 02/16/24 History buPROPion XL [Wellbutrin XL] 300 mg PO HS 12/09/22 02/16/24 History Pregabalin [Lyrica] 150 mg PO BID #60 cap 12/15/22 02/16/24 Rx Sennosides/Docusate Sodium [Senna 1 each PO HS 02/16/24 02/16/24 History Plus 8.6-50 mg Tablet] oxyCODONE-APAP 7.5-325MG [Percocet 1 tab PO Q8H PRN 02/16/24 02/16/24 History 7.5-325 mg] Docusate [Colace] 100 mg PO BID 02/17/24 02/17/24 History Ondansetron [Zofran] 4 mg PO Q8HR PRN 02/17/24 02/17/24 History Sertraline [Zoloft] 150 mg PO HS 02/17/24 02/17/24 History busPIRone HCl [Buspar] 5 mg PO BID PRN 02/17/24 02/17/24 History lisinopriL [Zestril] 10 mg PO HS 02/17/24 02/17/24 History methocarbamoL [Robaxin-750] 750 mg PO TID 02/17/24 02/17/24 History Allergies Allergy/AdvReac Type Severity Reaction Status Date / Time Iodinated Contrast Media Allergy Severe Swelling(states Verified 12/09/22 09:19 [Iodinated Contrast Media - betadine Oral and] and shellfish ok to have" cyclobenzaprine Allergy Intermediate cramping Verified 12/13/22 16:21 [From Flexeril] "tamara horses" in bilateral extremities Physical Examination Osteopathic Statement: *. No significant issues noted on an osteopathic structural exam other than those noted in the History and Physical/Consult.
[~2024-02-23 05:45] MED LIST changes: -ACETAMINOPHEN TAB 500 MG TAB PO PRN; -GABAPENTIN 300 MG CAP PO PRN; -ONDANSETRON 4 MG/2 ML VIAL IVP PRN; +TRANEXAMIC 1,000 MG/100ML-NACL 1,000 MG in SALINE 1 100ML.BAG IVPB PRN; -TRANEXAMIC ACID IN NACL,ISO-OS 1,000 MG in SALINE 1 100ML.BAG IVPB PRN
[2024-02-23] MEDS: LACTATED RINGERS 1,000 ML IV SCH (06:30)
[2024-02-23] MEDS: LACTATED RINGERS 1,000 ML IV ONE (06:45)
[2024-02-23] MEDS ORDERED: MIDAZOLAM 2 MG/2 ML VIAL IV PRN (07:00)
[2024-02-23] MEDS: ACETAMINOPHEN TAB 500 MG TAB PO PRN (07:05)
[2024-02-23] MEDS: GABAPENTIN 300 MG CAP PO PRN (07:05)
[2024-02-23] MEDS: ONDANSETRON 4 MG/2 ML VIAL IVP PRN (07:12)
[2024-02-23] MEDS ORDERED: MIDAZOLAM 2 MG/2 ML VIAL ONE (07:30)
[2024-02-23] MEDS ORDERED: ROCURONIUM 10 MG/ML (5 ML VIAL) IV ONE (07:30)
[2024-02-23] MEDS ORDERED: KETAMINE HCL IN 0.9 % NACL 50 MG/5 ML SYRINGE ONE (07:30)
[2024-02-23] MEDS ORDERED: LIDOCAINE 1% INJ 10MG/ML (20 ML MDV) ONE (07:30)
[2024-02-23] MEDS ORDERED: NEOSTIGMINE 1 MG/ML 10 ML VIAL ONE (07:30)
[2024-02-23] MEDS ORDERED: HYDROmorphone (PF) 1 MG/ML ONE (07:30)
[2024-02-23] MEDS ORDERED: TRANEXAMIC 1,000 MG/100ML-NACL PREMIX BAG ONE (07:30)
[2024-02-23] MEDS ORDERED: PHENYLEPHRINE 10 MG/ML VIAL ONE (07:30)
[2024-02-23] MEDS ORDERED: PROPOFOL 10 MG/ML 20 ML VIAL IV ONE (07:30)
[2024-02-23] MEDS ORDERED: fentaNYL (PF) 50 MCG/ML 2 ML AMP ONE (07:30)
[2024-02-23] MEDS ORDERED: GLYCOPYRROLATE 0.2 MG/ML 2 ML VIAL ONE (07:30)
[2024-02-23] MEDS ORDERED: SUCCINYLCHOLINE CHLORIDE 200 MG/10 ML VIAL IV ONE (07:30)
[2024-02-23] MEDS: ceFAZolin 3,000 MG in SODIUM CHLORIDE 0.9% IRRIGATIO 3,000 ML IRRIGATION ONE (08:23)
[2024-02-23] MEDS: GENTAMICIN 80 MG in SODIUM CHLORIDE 0.9% IRRIGATIO 3,000 ML IRRIGATION ONE (08:23)
[2024-02-23] MEDS: THROMBIN (BOVINE) 5,000 UNIT VIAL TOPICAL ONE (08:28)
[2024-02-23] MEDS: BUPIVACAINE (PF) 0.25% 30 ML VIAL SQ ONE (08:29)
[2024-02-23] MEDS: VANCOMYCIN 1,000 MG VIAL MISCELLANE ONE (10:15)
[2024-02-23] MEDS ORDERED: HYDROmorphone 0.5 MG/0.5 ML SYRINGE IVP PRN (10:37)
[2024-02-23] MEDS ORDERED: MAGNESIUM HYDROXIDE 2,400 MG/30 ML CUP PO PRN (10:37)
[2024-02-23] MEDS ORDERED: SENNOSIDES-DOCUSATE SODIUM 1 EACH TAB PO PRN (10:37)
[2024-02-23] MEDS ORDERED: CYCLOBENZAPRINE 10 MG TAB PO PRN (10:37)
[2024-02-23] MEDS ORDERED: ONDANSETRON 4 MG/2 ML VIAL IVP PRN (10:37)
--- NOTE | 2024-02-23 10:37 | FL ---
EXAMINATION TYPE: FL guidance operating room, XR lumbar spine 2 or 3V Intraoperative/procedural fluor oscopic services were provided. Total fluoroscopy time is 1.36 seconds with a total of 9 submitted im ages to PACS. Please see the operative/procedural note for further details. DAP: 13.258 Gycm2
--- NOTE | 2024-02-23 10:48 | P.OP ---
Date of Procedure: 02/23/24 Preoperative Diagnosis: 1. L2-3 ASD with grade I spondylolisthesis, unstable 2. L2-3 stenosis with radiculopathy 3. Neurogenic claudication 4. Low back pain Postoperative Diagnosis: 1. L2-3 ASD with grade I spondylolisthesis, unstable 2. L2-3 stenosis with radiculopathy 3. Neurogenic claudication 4. Low back pain Procedure(s) Performed: STAGE I: 1. L2-3 LATERAL INTERBODY ARTHRODESIS 2. L2-3 INSERTION OF BIOMECHANICAL DEVICE STAGE II: 1. L2-3 POSTEROLATERAL INSTRUMENTED FUSION 2. INSTRUMENTATION L2-3 3. REVISION FUSION L2-4 WITH REMOVAL OF HARDWARE, EXPLORATION OF FUSION 4. REVISION DECOMPRESSIVE LAMINECTOMY, PARTIAL MEDIAL FACETECTOMY AND FORAMINOTOMY USE OF IONM Implants: STAGE I GLOBUS RISE L 10-17 10 DEG 18MM 50MM STAGE II MICHAELA EVEREST RODS AND SCREWS BOTH ARTHROCELL, ALLOGRAFT, AUTOGRAFT, MAGNATOS Anesthesia: GETA Surgeon: José Oliver Line Painting Machine Operator #1: Aris Iglesias (Was present and assisted with all aspects of the case from position to closure) Estimated Blood Loss (ml): 50 IV fluids (ml): 1,500 Urine output (ml): 600 Pathology: none sent Indications for Procedure: Ms. Ranulfo Crews is presenting for evaluation of low back and bilateral lower extremity pain, bilateral lower extremity numbness, tingling, and weakness . It was my pleasure to have seen and examined Ms. Ranulfo Crews. In our visit today we have had a chance to go over subjective complaints, physical examination findings and treatments including the natural course history without intervention and various interventional options. The patients imaging demonstrates: XRay taken on 12/10/23 of Lumbar Spine; 2 views (AP, Lateral) was reviewed by Dr. Randall and indicates: L2-3 ASD with posterior and lateral collapse with retrolisthesis, foraminal stenosis and facet arthropathy. Likey stenosis in this area related to disc herniation and ligamental hypertrophy suspected given pts radicular sx, MRI or CT myelogram would elucidate. No acute fractures. Post surgical changes from L3-[address] [facility]: - Images reviewed with the patient. These images demonstrate post operative changes at L4-5 with TLIF construct in position. There is minimal anterior fusion noted at this level, but there is some on growth of the cage noted. No posterolateral fusion noted. No fractures. Hardware in position and does not appear loose or migrated. There is ASD at L3-4 with disc herniation causing velma based stenosis central and mild foraminal. There is facet hypertrophy contributing to moderate central stenosis as well. There is ASD at L5-S1 as well. There is facet hypertrophy to a lesser extent with some disc collapse causing b/l foraminal stenosis. No fractures. No lesions. MRI scan without contrast from 11/07/22 at [facility] of the lumbar spine demonstrates: - Images Reviewed in office with the patient. L1-2 Mild spondylosis, mild stenosis L2-3 Mild spondylosis with stenosis L3-4 Spondylosis, severe, disc height loss, HNP causing central and b/l foraminal stenosis, facet arthropathy and bogginess L4-5 Post surgical changes, artifact, residual stenosis noted, likely pseudoarthrosis L5-S1 Mild spondylosis with ASD, height loss, facet arthropathy Alignment: PI:NA LL: 48 Coronal alignment: Maintained Fracture: None Lesion: None On physical exam, Ms. Ranulfo Crews demonstrates: A continued pressure-like pain throughout the low back that radiates down into the bilateral lower extremities. She notes her pain terminates around the bilateral calf. She reports experiencing tingling throughout the right lower extremity and numbness throughout the left lower extremity. She notes frequent occurances of intense muscle spasms at night that wake her from sleep. She does note that her low back and lower extremity pain was significantly improved immediately following her procedure approximately 1 year ago, though her pain has been gradually worsening over the last 3 to 4 months. The patient states that her current symptoms worsen after prolonged walking or standing. The patient reports experiencing severe sleep disturbances related to her ongoing pain and associated symptoms. She notes intense "cracking sensations" upon rolling over in bed. I have explained to the patient that as their condition progresses it will cause further neurological deficits and eventual paralysis. Based on the patients imaging, physical exam, and the rapid progression and disabling nature of their symptoms, at this time I recommend surgery in the form of a: Stage I: L2-3 lateral interbody fusion Stage II: Posterior L2-3 decompression and fusion. I discussed the risk and benefits of this procedure at length with Ms. Ranulfo Crews. The patient agreed to considered pursuing the procedure abovementioned. Prior to surgery, she should follow up with her PCP (Cardio, ID, IM etc) for clearance. Questions were invited and answered, and the patient wishes to proceed as outlined below. Currently, I am recommendin.Stage I: L2-3 lateral interbody fusion Stage II: Posterior L2-3 decompression and fusion Description of Procedure: L2-3 lateral interbody fusion with posterolateral instrumented fusion (CELINA) The patient was seen and examined in the preoperative area. All preoperative protocols were followed. Informed consent was obtained, risks and benefits of the procedure were discussed at length. Risks including bleeding infection damage to the surrounding tissue and risk of reoperation were discussed with the patient. Risk of anesthesia up to and including was discussed with the patient. These are outlined in the risk review. They were willing to accept these risks and all of the risks of surgery. The patient was given a weight- based dose of antibiotics in the form of 2 g Ancef. The patient was seen and evaluated by the anesthesia team who deemed them fit for surgery. The site was marked, the patient was willing to proceed with the procedure. The patient was transferred to the operative suite by the Department of anesthesia. They were then drifted off to sleep by the department anesthesia and GETA was performed. The patient tolerated this well. Morrison catheter was placed by nursing staff, atraumatically. Once confirmation of lines and ventilation the patient was transferred to a flat Carlos table and placed in the right lateral decubitus position. Axillary roll was placed. Hip Bump was placed. All bony prominences including wrists, elbows, axilla, chest, hips, and thighs, and feet were padded very well. Special attention was paid to the genitalia and these were padded accordingly. SCDs were placed on bilateral lower extremities and were connected. Arms were well padded and placed on armboard pillows. The patient was taped to the table and secured. Once in position, again we confirmed good ventilation capabilities and that lines were running appropriately. The patient's left lateral lumbar and flank was then exposed. 1010s were placed outlining the incision site. Standard alcohol was used to clean the incision site and allowed to dry. C-arm was used to biomark the patient and confirm level for incision which was marked with a skin marker. Operative briefing was performed with all teams and everyone in agreement to proceed. The patient was then prepped and draped in a normal sterile fashion. Timeout was then performed and all parties were in agreement with the procedure to be performed. Transverse skin incision was then made over the previously biomarker area and dissection taken down with EC to the external oblique fascia. This was then identified and two large santos clamps then used for blunt dissection through the external, internal and transverse abdominis inline with the level to be exposed. Once the transversalis fascia was identified the retroperitoneal space was entered bluntly and blunt dissection was used to sweep abdominal contents anteriorly. Retroperitoneal fat was identified and the psoas as well as TVP was palpated. Once this was identified a blunt probe was placed with the help of biplanar fluoroscopy at the L2-3 level. Once it was in good position in the posterior ? of the body and at the disc space, a wire was passed. IONM was used to stimulate the probes before at 2 and 5 mA with no responses in all 4 quadrants. Dilator was then placed over the probe and stimulated and there was no response again. Retractor blades were then chosen and retractor placed and secured in position and to the table. The blades were carefully then opened slightly and the IONM probe sent down all 4 quadrants again without any responses at 2, 5 and 10 mA. The retractor was then opened further for visualization and the dilators and wire removed. Disc space was visible and a combination of bipolar and EC were used to clean margins and identify disc. Once it was identified, rongeur was used to remove outer osteophytes. A osteotome was then used to pass through the disc space under fluoroscopic guidance once this was passed a Wiggins was then passed in a similar fashion through to the opposite side to release the osteophytes on this side as well. Once these were released sequential box osteotomes were passed in a similar fashion until the disc had been completely removed. Good bleeding endplates were noted. Pituitary was used to remove any floating or excess fragments. The trial was then placed and sized. The disc space was irrigated. A 55 mm x 22 mm 8-16 mm expandable lateral leg spine cage was then selected and placed under fluoroscopic guidance. The cages then expanded to its desired height, reducing a and restoring disc space height and lordosis and alignment. The cage was backfilled with MagnatOs. The mobile equipment servicer was then removed and the area inspected. No injury was evident, minimal bleeding was cauterized and AP and Lateral images confirmed good placement of cage. The retractor was then removed under direct visualization at 18 min in the psoas. The wound was copiously irrigated with NSS. The deep fascia was then closed with 0 Vicryl superficial closed with 2-0 Vicryl and the skin was closed with a 3-0 running strata fix Monocryl. Skin glue was then placed after it was cleaned it was then dressed sterilely with an operative foam dressing. The patient was transferred back to their hospital bed atraumatically and the beds were flipped for the second stage posteriorly. Pt was then positioned prone on a [employer] spine top table. All bony prominences including wrists, elbows, axilla, chest, hips, and thighs, and feet were padded very well. Special attention was paid to the genitalia and these were padded accordingly. SCDs were placed on bilateral lower extremities and were connected. Arms were well padded and placed on armboard pillows. The patient was taped to the table and secured. Once in position, again we confirmed good ventilation capabilities and that lines were running appropriately. The patient's left lateral lumbar and flank was then exposed. 1010s were placed outlining the incision site. Standard alcohol was used to clean the incision site and allowed to dry. C-arm was used to biomark the patient and confirm level for incision which was marked with a skin marker. Operative briefing was performed with all teams and everyone in agreement to proceed. The patient was then prepped and draped in a normal sterile fashion. Timeout was then performed and all parties were in agreement with the procedure to be performed. Midline skin incision was made over the previously biomarked area and dissection taken down to the fascia. Midline fasciiotomy was made and subperiosteal dissection taken out over the TP lf L2 and L3-4. Hardware was exposed at L3-4 and crosslink removed between this area. TP were decorticated with highspeed marleni. Lateral Fluoroscopy was then used to make pilot steam yacht hole in the pedicle for screw. Gear shift was then used to find the pedicle using lateral image then ball tip feeler used to confirm in the 4 wall of the pedicle. Once confirmed, screw was placed with lateral imaging. This was done at L2. Then at L3-4, the azucena was exposed and the azucena to azucena connector was applied and tightened. Once in position screws were tested and all tested above 20 mA. Rods were then selected and bent appropriately. Posterolateral gutters were decorticated with a high speed marleni and Ventris bio placed in the PL gutters for fusion. Rods were then placed through tulip heads. Set screws were then finally tightened. AP and Lateral imaging confirmed good placement of screws with reduction of height, lordosis and alignment. Marleni was used for laminectomy and partial medial facetectomy at L2-3 as well for further decompression. Wounds were copiously irrigated with NSS. Local anesthetic is placed remote to the incision for the block. The deep fascia was closed with 0 vicryl. Superficial closed with 2-0 Vicryl and skin closed with pee. Wound edges approximated very well. Wounds were then cleaned and dressed sterilly with optifoam dressing. The patient was then transferred to their hospital bed atraumatically. Patient was then awakened and extubated by the department of anesthesia having tolerated the procedure very well with no complications. They were transferred to the postoperative care unit in stable condition.
[2024-02-23] MEDS: HYDROmorphone 0.5 MG/0.5 ML SYRINGE IVP PRN (11:05)
[2024-02-23] MEDS: KETOROLAC 15 MG/ML 1 ML VIAL IVP SCH (13:03)
[2024-02-23] MEDS: ACETAMINOPHEN TAB 500 MG TAB PO SCH (13:04)
[2024-02-23] MEDS: polyethylene glycoL 3350 17 GM POWD.PACK PO SCH (13:04)
[2024-02-23] MEDS: 0.9% NACL WITH KCL 20 MEQ/L 1,000 ML IV SCH (14:00)
[2024-02-23] MEDS: HYDROmorphone 1 MG/ML 1 ML SYRINGE IVP PRN (14:00)
[2024-02-23] MEDS ORDERED: ONDANSETRON 4 MG TAB PO PRN (16:49)
[2024-02-23] MEDS ORDERED: busPIRone HCl 5 MG TAB PO PRN (16:49)
--- NOTE | 2024-02-23 17:22 | CT ---
EXAMINATION TYPE: CT lumbar spine wo con DATE OF EXAM: 02/23/2024 5:15 PM COMPARISON: 12/12/2022 HISTORY: post-op CT DLP: 968.7 mGycm Automated exposure control for dose reduction was used. Unenhanced CT of the lumbar spine was performed. Bone and soft tissue window settings are submitted as well as coronal and sagittal reconstructions. Postoperative changes of lumbar laminectomy and fusion extending from L2-3 through L4-5. Postsurgical soft tissue changes seen. Overlying skin pee. Underlying surgical drain noted been placed. L1-L2: Normal disc space height. No disc herniation protrusion or central stenosis. No facet joint arthropathy. No evidence for foraminal encroachment. L2-L3: Decompressive laminectomy with grade 1 retrolisthesis of L2 on L3 of 3.5 mm. Intervertebral sp acer in place. Postoperative soft tissue changes. Streak artifact limits evaluation. Pedicular screws noted. L3-L4: Decompressive laminectomy with normal alignment. Intervertebral spacer is in place. Pedicular screws and extensive streak artifact. Postsurgical soft tissue changes. L4-L5: Decompressive laminectomy with intervertebral spacer. Grade 1 anterolisthesis L4 and L5 measur ing 3.4 mm. Extensive streak artifact from pedicular screws limits evaluation. Postsurgical soft tiss ue changes noted. L5-S1: Normal disc space height. No disc herniation protrusion or central stenosis. No facet joint arthropathy. No evidence for foraminal encroachment. IMPRESSION: Decompressive laminectomy and fusion as noted with postoperative alignment as discussed above.
[2024-02-23] MEDS: GABAPENTIN 300 MG CAP PO SCH (18:08)
[2024-02-23] MEDS: PREGABALIN 75 MG CAP PO SCH (20:07)
[2024-02-23] MEDS: buPROPion XL 300 MG TAB.ER.24H PO SCH (20:08)
[2024-02-23] MEDS: LORATADINE 10 MG TAB PO SCH (20:09)
[2024-02-23] MEDS: SERTRALINE 50 MG TAB PO SCH (20:10)
[2024-02-23] MEDS: DOCUSATE 100 MG CAP PO SCH (20:11)
[2024-02-23] MEDS: ATORVASTATIN 20 MG TAB PO SCH (20:11)
[2024-02-23] MEDS: lisinopriL 10 MG TAB PO SCH (20:12)
[2024-02-23] MEDS ORDERED: SENNOSIDES-DOCUSATE SODIUM 1 EACH TAB PO SCH (21:00)
[2024-02-23] MEDS: methocarbamoL 750 MG TAB PO SCH (21:58)
[2024-02-24] MEDS: HYDROcodone/APAP 10-325MG 1 EACH TAB PO PRN (00:49)
[2024-02-24 04:57] LABS: Basophils % (A) 0 %; Eosinophils # (A) 0.2 k/uL (0-0.7); Eosinophils % (A) 2 %; HCT 36.1 % (34.0-46.0); HGB 11.7 gm/dL (11.4-16.0); Lymphocytes % (A) 23 %; MCH 34.2 pg (25.0-35.0); MCHC 32.4 g/dL (31.0-37.0); MCV 105.6 fL (80.0-100.0); Macrocytosis Moderate; Mean Platelet Volume 7.9; Monocytes # (A) 0.3 k/uL (0-1.0); Monocytes % (A) 4 %; Neutrophils # (A) 6.2 k/uL (1.3-7.7); Neutrophils % (A) 70 %; Platelet Count 178 k/uL (150-450); RBC 3.42 m/uL (3.80-5.40); RDW 13.2 % (11.5-15.5); WBC 8.8 k/uL (3.8-10.6)
--- NOTE | 2024-02-24 10:01 | P.PN ---
Subjective Progress Note Date: 02/24/24 Principal diagnosis: Status post L2-L3 lateral interbody fusion, L2-L3 posteriorlateral instrumented fusion, revision fusion L2-L4 with hardware removal Patient was evaluated today at bedside, her significant other was also present. Patient was resting in her hospital bed, urinary catheter is in place. She has not been out of bed at this time. She states that her back pain and leg discomfort is feeling much better since the surgery. She has some general discomfort on the left lateral flank from her lateral incision. Pain medication she feels are working well at this time. Denies headaches, lightheadedness, chest pain or shortness of breath Objective - Vital Signs Vital signs: Vital Signs Temp 98.1 F 02/24/24 07:40 Pulse 74 02/24/24 07:40 Resp 17 02/24/24 07:40 BP 112/72 02/24/24 07:40 Pulse Ox 95 02/24/24 07:40 FiO2 Intake & Output 02/23/24 02/24/24 02/24/24 18:59 06:59 18:59 Intake Total 1652 Output Total 950 2525 80 Balance 702 -2525 -80 Weight 74.3 kg Intake: IV 1652 Output: Drainage 225 80 Back 225 80 Urine 900 2300 Estimated Blood Loss 50 Other: Voiding Method Indwelling Catheter - Exam Gen: AOx3, NAD VSS stable at this time Integument: Postoperative dressings are in good position condition, no active drainage is visualized. No output was noted in the Hemovac drain at bedside, she states that they did empty it once during the night and once earlier this morning Palpation: Mild tenderness with palpation to the lumbar spine ROM: Full range of motion in all major muscle groups of the bilateral upper and lower extremities, no focal deficits Sensory Exam: Senory exam to light touch is intact C5-T1 Senosry exam to light touch is intact L2-S1 Motor: 4+/5 strength appreciated in the bilateral lower extremities with hip flexion, knee extension, knee flexion, plantarflexion, dorsiflexion, EHL, FHL Reflexes: 2/4 in all UE and LE Negative Babinski bilaterally Negative clonus bilaterally - Labs CBC & Chem 7: 02/24/24 04:05 Labs: Abnormal Lab Results - Last 24 Hours (Table) 02/24/24 Range/Units 04:05 RBC 3.42 L (3.80-5.40) m/uL MCV 105.6 H (80.0-100.0) fL Assessment and Plan Assessment: Postoperative day #1 status post L2-L3 lateral interbody fusion, L2-L3 posteriorlateral instrumented fusion, revision fusion L2-L4 with hardware removal Plan: Pain control, continue with current medications DVT prophylaxis, heparin 5000 units every 12 hours starting tonight Monitor surgical dressing and drain output Discontinue urinary catheter Weight-bear as tolerated with walker LSO brace has been ordered, only needs this for longer distance walking PT/OT evaluation Other medical specialty recommendations appreciated Discharge planning: Anticipate discharge to home on 02/25/2024, would like to monitor overnight for urinary retention and drain output Time with Patient: Less than 30
[2024-02-24 15:31] LABS: African American GFR (CKD) >90 (>60 ml/min/1.73 sqM); Anion Gap 3 mmol/L; Blood Urea Nitrogen 15 mg/dL (7-17); Calcium 8.1 mg/dL (8.4-10.2); Carbon Dioxide 21 mmol/L (22-30); Chloride 108 mmol/L (98-107); Glucose 113 mg/dL (74-99); Non-African American GFR(CKD) 80 (>60 ml/min/1.73 sqM); Sodium 132 mmol/L (137-145)
[2024-02-24] MEDS: HEPARIN SODIUM,PORCINE 5,000 UNIT/ML 1 ML VIAL SQ SCH (20:49)
[2024-02-24] MEDS: SIMETHICONE 40 MG/0.6 ML DROPS 2,000 MG/30 ML BOTTLE PO PRN (21:01)
--- NOTE | 2024-02-24 22:35 | PN ---
PROGRESS NOTE DATE OF SERVICE: 02/24/2024 CHIEF COMPLAINT: Status post LS spine surgery. HISTORY OF PRESENT ILLNESS: Other than pain, she is doing well. She is not complaining of any shortness of breath or chest pain. PHYSICAL EXAMINATION: VITAL SIGNS: Normal. GENERAL: She is slightly pale. CHEST: Clear. CARDIAC: Normal. IMPRESSION: Status post LS spine procedure and stabilization for spondylolisthesis. PLAN: Continue to follow for any medical issues. She is doing well. MMODL / IJN: [id number] /
--- NOTE | 2024-02-25 | CONS ---
CONSULTATION The patient of Dr. Oliver. CHIEF COMPLAINT: Back pain. HISTORY OF PRESENT ILLNESS: This lady is in the hospital for surgical intervention for LS spine degenerative disk disease and spondylolisthesis. She has otherwise been fairly healthy. REVIEW OF SYSTEMS: She denies any headaches, confusion, change in vision or hearing, chest pain, shortness of breath, abdominal pain, nausea, vomiting, hematemesis, melena, dysuria, incontinence, etc. Past medical history, family history, personal and social histories reveal that she is allergic to IV dye contrast and Flexeril. MEDICATIONS: She takes at home include, 1. Methocarbamol. 2. Sertraline. 3. Bupropion. 4. Lisinopril. 5. Buspirone. 6. Zyrtec. 7. Adderall. 8. Atorvastatin. 9. Vitamin D. 10.Oxycodone. PAST SURGICAL HISTORY: Surgery as a youngster for a brain injury. She had undergone a breast biopsy in the past as well. SOCIAL HISTORY: She does smoke. PHYSICAL EXAMINATION: VITAL SIGNS: Normal. HEENT: Head, ears, eyes, nose, mouth and throat are normal. CHEST: Clear. CARDIAC: Normal. ABDOMEN: Soft and nontender. EXTREMITIES: Normal NEUROLOGICAL: Intact. DIAGNOSIS: She has been admitted to the hospital with diagnoses: 1. LS spine degenerative disc disease and spondylolisthesis. RECOMMENDATIONS: None at this time. She currently is stable, though she is having significant amount of discomfort. MMODL / IJN: [id number] /
[2024-02-25] MEDS ORDERED: MORPHINE SULFATE 2 MG/ML SYRINGE IVP PRN (08:01)
[2024-02-25 08:16] VITALS: PULSE 87; RESP 18
--- NOTE | 2024-02-25 12:06 | P.PN ---
Subjective Progress Note Date: 02/25/24 Principal diagnosis: Status post L2-L3 lateral interbody fusion, L2-L3 posteriorlateral instrumented fusion, revision fusion L2-L4 with hardware removal Patient was evaluated today at bedside, she is resting comfortably. Patient has continued to progress well with her range of motion and ambulation status. Urinary catheter was removed and she has been urinating with no issues. Her back pain is controlled with current medications. She denies headaches, lightheadedness, chest pain or shortness of breath Objective - Vital Signs Vital signs: Vital Signs Temp 98.4 F 02/25/24 07:02 Pulse 87 02/25/24 07:02 Resp 18 02/25/24 07:02 BP 117/79 02/25/24 07:02 Pulse Ox 95 02/25/24 07:02 FiO2 Intake & Output 02/24/24 02/25/24 02/25/24 18:59 06:59 18:59 Output Total 235 80 Balance -235 -80 Output: Drainage 235 80 Back 235 80 Other: # Voids 2 1 - Exam Gen: AOx3, NAD VSS stable at this time Integument: Postop dressing and drain were both removed today at bedside, pee are all in good position condition. A new postop dressing was placed. Palpation: Mild tenderness with palpation to the lumbar spine ROM: Full range of motion in all major muscle groups of the bilateral upper and lower extremities, no focal deficits Sensory Exam: Senory exam to light touch is intact C5-T1 Senosry exam to light touch is intact L2-S1 Motor: 4+/5 strength appreciated in the bilateral lower extremities with hip flexion, knee extension, knee flexion, plantarflexion, dorsiflexion, EHL, FHL Reflexes: 2/4 in all UE and LE Negative Babinski bilaterally Negative clonus bilaterally - Labs CBC & Chem 7: 02/24/24 04:05 02/24/24 04:00 Labs: Abnormal Lab Results - Last 24 Hours (Table) 02/24/24 Range/Units 04:00 Sodium 132 L (137-145) mmol/L Chloride 108 H (98-107) mmol/L Carbon Dioxide 21 L (22-30) mmol/L Glucose 113 H (74-99) mg/dL Calcium 8.1 L (8.4-10.2) mg/dL Assessment and Plan Assessment: Postoperative day #2 status post L2-L3 lateral interbody fusion, L2-L3 posteriorlateral instrumented fusion, revision fusion L2-L4 with hardware removal Plan: Pain control, patient normally takes Percocet 7.5 mg / 325 mg, Robaxin-750 m illigram, and Lyrica 150 mg. Plan to increase Percocet to up to 4 times a day, advised that she may need to discuss this with her primary care doctor and pharmacy regarding filling the prescription DVT prophylaxis, heparin 5000 units every 12 hours starting tonight Surgical dressing instructions, this to include showering instructions were discussed with patient Weight-bear as tolerated with walker LSO brace instructions were discussed Other medical specialty recommendations appreciated Discharge planning: Stable for discharge home today Time with Patient: Less than 30
--- NOTE | 2024-02-25 12:14 | P.DS ---
Providers Date of admission: 02/23/24 05:45 Expected date of discharge: 02/25/24 Attending physician: José Oliver DO Consults: 02/23/24 10:41 Consult Physician Routine Consulting Provider: Rolando Buchanan Reason/Comments: medical management Do you want consulting provider notified?: Yes Primary care physician: Rolando Buchanan Hospital Course: Date of admission: 02/23/2024 Date of discharge: 02/25/2024 Admission diagnosis: Status post L2-L3 lateral interbody fusion, L2-L3 posteriorlateral instrumented fusion, revision fusion L2-L4 with hardware removal Discharge diagnosis: Same Attending physician: Dr. Oliver Surgical procedures: L2-L3 lateral interbody fusion, L2-L3 posterolateral instrumented fusion, revision fusion L2-L4 with hardware removal Brief history: Patient is a 53-year-old female who has been following in the outpatient setting with Dr. Barragan and was regards to low back pain, lower extremity radiculopathy and weakness. Patient had previous L4-L5 to the left. 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 Conservative measures were initially tried, these did not provide symptomatic relief. Patient was scheduled for a two-stage procedure, this to include L2-L3 lateral interbody fusion and L2-L3 posterior lateral instrumented fusion. Hospital course: Details of patient's surgery can be found in operative report. Patient tolerated the procedure well and was subsequently transported to orthopedic floor. Patient's orthopeidc and medical care was provided daily. Patient had daily laboratory tests performed for evaluation of overall blood counts. Patient had daily physical therapy to include strengthening range of motion as well as education with walker ambulation. Patient was treated with heparin for their postoperative DVT prophylaxis during their inpatient stay. Patient was noted to have a relatively uneventful postoperative course. Patient reported satisfactory pain control with oral pain medications by postoperative day 2. Patient showed satisfactory progress with physical therapy. Patient moved steadily through the program and had no difficulty meeting the goals by postoperative day 2. Given patient's otherwise satisfactory course and having met physical therapy goals, plan is to discharge patient [home] on postoperative day 2. Discharge condition/disposition: Patient will be discharged [home] in stable condition. Discharge medications: Instructions are given on resumption of patient's normal daily medications per primary care recommendation, in addition patient will be prescribed Duricef 500 mg, Percocet 7.5 mg / 325 mg. Spine Discharge and Recovery Instructions Dressing: Leave your dressing in place for a total of 5 days post operatively. Then you may remove your dressing and leave open to air. Keep the area clean and if not able to keep area clean, then cover with sterile gauze and tape. Showering: You may shower 3 days after your procedure allowing soap and water to run over incision. Do not scrub. Do not soak. Blot dry. Follow up: Please confirm a follow up appointment with your surgeon 3 weeks post operatively. Please make an appointment to follow up with your PCP in 1-2 weeks after surgery for evaluation `3 phase, 3-week plan POST OP WEEKS 1-3 1. Lifting/carrying/pushing/pulling limited to less than 5 pounds. 2. Do not sit for longer than 15 minutes at one time. Get up and walk around. Prolonged sitting is NOT advised. If you lay down, see if you can tolerate laying down on you front (belly side) 3. Walk for periods of 15 minutes = 1 mile but no longer; do it multiple times times each day. 4. Ice your low back after activity. POST OP WEEKS 3-6 1. Lifting limited to less than 20 pounds. 2. Do not sit for longer than 30 minutes at a time. Frequently change positions. Use a sit-to stand workstation or take frequent breaks from sitting if you have returned to work. 3. Walk for 30 minutes each day. If possible, do these three or more times a day POST OP WEEKS 6+ At your 6-week appointment we will give you a physical therapy referral to focus on a core stabilization and strengthening program. You should also work on leg & buttock strengthening, hamstring & quadriceps stretching, and continue a low impact aerobic activity program such as swimming, walking, or riding a stationary bicycle. During the initial 6 weeks after your surgery, you are at the highest risk of re-injuring your spine. You should generally avoid BLTs (bending, lifting and twisting combination motions) and follow the above guidelines to reduce the chance of reinjury. You can anticipate post op appointments in our office at approximately 3 weeks and 6 weeks after your surgery. INCISION CARE: If your incision is not draining you do NOT need to cover it with a dressing. Keep your incision clean, dry and intact. In most cases, we apply skin glue, pee or sutures to the incision at the time of surgery. This will be like a crust or have the appearance of a scab and will fall off in time on its own. The stitches or pee need to be removed at 3 weeks post op appointment. You may begin to shower 3 days after surgery (this allows the glue to russell well). However, please avoid scrubbing the incision site or peeling off any of the skin glue. This will ensure optimal healing of your incision. Also, during this time avoid soaking the incision area in water - this includes swimming pools, hot tubs or baths. No ointments, lotions or oils on the incision until your surgeon allows. Leave pee, sutures or glue in place. Neurological dysfunction that comes on suddenly can also be a sign of a stroke. Below some common symptoms of a stroke are listed: B - balance difficulty such as sudden onset walking or leaning to one side - NEW E - eye problem such as sudden double vision or trouble seeing on one side - NEW F - Facial weakness or numbness on one side - NEW A - Arm or leg weakness or numbness on one side - NEW S - Slurred speech or difficulty with word finding - NEW T - Time is BRAIN! Call 911 as soon as you recognize these symptoms Diet: Consume a regular diet rich in vegetables and lean protein such as chicken or fish. You should consume in a ratio of approximately 20% fats|40% carbohydrates|40%protein. Vegetables, sweet potatoes, brown rice or quinoa are examples of good carbohydrates. Chips, white bread, cookies and sweets/sugar are examples of bad carbohydrates. Limit your bad carbs, go wild with good carbs. 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 (1) Get Active. Physical activity can help people lose weight, control high blood pressure and cholesterol, feel emotionally better, and sleep better. (2) Control Cholesterol. Avoid a diet high in saturated fat, trans fat, & cholesterol. Limit whole milk & cream, ice cream, butter, egg yolks, processed meats (like sausage and hot dogs), and fatty meats. Choose healthy foods that are low in saturated fat, trans fat and cholesterol which include: Fruits and vegetables, fiber rich grain products (like whole grain pasta and brown rice), lean meat such as chicken, fish, nuts, seeds, and legumes. (3) Eat Better. Eat small portions. Shop at the grocery with a list and do not stray from it. Tips for a healthy diet include: Limit sodium intake to less than 1500mg daily, avoid prepackaged, processed, and fast foods, choose a diet rich in fruits, vegetables, and whole grain, high fiber foods, and limit saturated & cholesterol in your diet. (4) Manage Blood Pressure. If you have high blood pressure, you should have a cuff at home so that you can check your blood pressure regularly. Be sure you have a good cuff. An arm one is generally better than a wrist one. Bring the cuff to a doctor's appointment to validate that the measurements that your cuff are taking are accurate. Take your blood pressure twice daily when you are sitting down and relaxing. Record the numbers in a log and bring this log with you to your doctors' appointments. (5) Lose Weight if your BMI is above 25. A healthy BMI is between 19-25. To calculate Your BMI, you may use a Standard BMI Calculator on the NIH BMI website: <www.nhlbi.nih.gov/guidelines/obesity/BMI/bmicalc.htm>. Weigh oneself daily. If you are overweight, set a goal to lose weight. A pound a week loss if needed is a good target. (6) Reduce Blood Sugar. Limit foods and liquids with "added sugars." (Added sugars include sucrose, fructose, glucose, maltose, dextrose, high fructose corn syrup, corn syrup, concentrated fruit juice and honey). (7) Stop Smoking. If you smoke, quitting smoking is one of the best things that you can do for your health. Smoking increases your risk of heart attack, stroke, and peripheral vascular disease, which is a build-up of plaque in your arteries. Please discard all the cigarettes and lighters in your house. Have a plan for what you will do when you have the urge to smoke. Direct and second- hand smoke shortens your life as well as the lives of your family, friends and others around you. For your health and the health of those around you, please consider quitting! Proper Bending Body Mechanics: Maintain a wide stance with one foot slightly in front of the other. Keep your back straight. Bend utilizing the strength in your hips and knees. Do not bend at the waist. Maintain the lifted object at your waist-level close to your body. Avoid lifting weight that causes immediately pain or pain anywhere in the body afterwards. Smoking/Nicotine If there was ever one thing that you could do to increase your overall health, decrease your risk of cardiovascular problems by about 39% the second you make the choice, it is to STOP SMOKING. Your body's most instant gratification is the second you stop smoking. We have all heard the studies, read the articles but it is true, smoking is extremely bad for your overall health, and moreover it is detrimental to your bone health. Nicotine, IN ANY FORM, kills bone cells, prevents your body from healing fractures, and significantly prolongs healing after surgery. In spine surgery specifically, it increases your risk of not healing your bones to create a fusion and increases your risk of having a revision surgery due to this up to 60%. I know it is hard. I know it feels impossible. But there are ways. Take control of your life. We are here to help you through it. And when you are ready, ask us and we can direct you to help if you desire. Use the START Plan to Quit Smoking (please visit the Helpgu[employer]dat[employer].com.org website listed below for more information): S = Set a quit date. Choose a date within the next 2 weeks, so you have enough time to prepare without losing your motivation to quit. If you mainly smoke at work, quit on the weekend, so you have a few days to adjust to the change. T = Tell family, friends, and co-workers that you plan to quit. Let your friends and family in on your plan to quit smoking and tell them you need their support and encouragement to stop. Look for a quit sandra who wants to stop smoking as well. You can help each other get through the rough times. A = Anticipate and plan for the challenges you'll face while quitting. Most people who begin smoking again do so within the first 3 months. You can help yourself make it through by preparing ahead for common challenges, such as nicotine withdrawal and cigarette cravings. R = Remove cigarettes and other tobacco products from your home, car, and work. Throw away all your cigarettes (no emergency pack!), lighters, ashtrays, and matches. Wash your clothes and freshen up anything that smells like smoke. Shampoo your car, clean your drapes and carpet, and steam your furniture. T = Talk to your doctor about getting help to quit. Your doctor can prescribe medication to help with withdrawal and suggest other alternatives. If you can't see a doctor, you can get many products over the counter at your local pharmacy or grocery store, including the nicotine patch, nicotine lozenges, and nicotine gum. Resources for Quitting Smoking: <https://www.[place]. gov/documents/[facility]/Quit_Tobacco_Resources_for_patients_313480_7.pdf> Supplementation: Take recommended dosages of Vitamin D and Calcium to help fortify your bones and help them to heal. See your health maintenance packet for dosages and recommended levels. DVT/VTE prophylaxis: You will be given compression stockings from the hospital. Wear these daily for the first two weeks after surgery. You may take them off at night. You may be prescribed a medication to help thin your blood. Take this as directed. If you are not prescribed this medication, early and frequent ambulation has been shown to be the best prophylaxis to deep vein thrombosis and sequelae related to this event. Procedures: Stage I lateral L2-L3 interbody fusion, stage II posterior L2-L3 decompression and fusion Patient Condition at Discharge: Good Plan - Discharge Summary Discharge Rx Participant: No New Discharge Prescriptions: New cefaDROXiL [Duricef] 500 mg PO Q12HR 5 Days #10 cap oxyCODONE-APAP 7.5-325MG [Percocet 7.5-325 mg] 1 tab PO Q6HR PRN 7 Days #42 tab PRN Reason: Pain No Action Atorvastatin [Lipitor] 20 mg PO HS buPROPion XL [Wellbutrin XL] 300 mg PO HS Pregabalin [Lyrica] 150 mg PO BID #60 cap Sennosides/Docusate Sodium [Senna Plus 8.6-50 mg Tablet] 1 each PO HS lisinopriL [Zestril] 10 mg PO HS Docusate [Colace] 100 mg PO BID methocarbamoL [Robaxin-750] 750 mg PO TID Sertraline [Zoloft] 150 mg PO HS Ondansetron [Zofran] 4 mg PO Q8HR PRN PRN Reason: Nausea Cetirizine HCl [Zyrtec] 10 mg PO HS oxyCODONE-APAP 7.5-325MG [Percocet 7.5-325 mg] 1 tab PO Q8H PRN PRN Reason: Pain busPIRone HCl [Buspar] 5 mg PO BID PRN PRN Reason: Anxiety Discharge Medication List Atorvastatin [Lipitor] 20 mg PO HS 01/11/18 [History] Cetirizine HCl [Zyrtec] 10 mg PO HS 12/09/22 [History] buPROPion XL [Wellbutrin XL] 300 mg PO HS 12/09/22 [History] Pregabalin [Lyrica] 150 mg PO BID #60 cap 12/15/22 [Rx] Sennosides/Docusate Sodium [Senna Plus 8.6-50 mg Tablet] 1 each PO HS 02/16/24 [History] oxyCODONE-APAP 7.5-325MG [Percocet 7.5-325 mg] 1 tab PO Q8H PRN 02/16/24 [History] Docusate [Colace] 100 mg PO BID 02/17/24 [History] Ondansetron [Zofran] 4 mg PO Q8HR PRN 02/17/24 [History] Sertraline [Zoloft] 150 mg PO HS 02/17/24 [History] busPIRone HCl [Buspar] 5 mg PO BID PRN 02/17/24 [History] lisinopriL [Zestril] 10 mg PO HS 02/17/24 [History] methocarbamoL [Robaxin-750] 750 mg PO TID 02/17/24 [History] cefaDROXiL [Duricef] 500 mg PO Q12HR 5 Days #10 cap 02/25/24 [Rx] oxyCODONE-APAP 7.5-325MG [Percocet 7.5-325 mg] 1 tab PO Q6HR PRN 7 Days #42 tab 02/25/24 [Rx] Follow up Appointment(s)/Referral(s): [facility], [NON-STAFF] - 1-2 Days ([facility] will call you to schedule your in home nursing and physical therapy visits. ) José Oliver DO [Doctor of Osteopathic Medicine] - 03/09/24 10:50 am Activity/Diet/Wound Care/Special Instructions: Spine Discharge and Recovery Instructions Dressing: Leave your dressing in place for a total of 5 days post operatively. Then you may remove your dressing and leave open to air. Keep the area clean and if not able to keep area clean, then cover with sterile gauze and tape. Showering: You may shower 3 days after your procedure allowing soap and water to run over incision. Do not scrub. Do not soak. Blot dry. Follow up: Please confirm a follow up appointment with your surgeon 3 weeks post operatively. Please make an appointment to follow up with your PCP in 1-2 weeks after surgery for evaluation `3 phase, 3-week plan POST OP WEEKS 1-3 1. Lifting/carrying/pushing/pulling limited to less than 5 pounds. 2. Do not sit for longer than 15 minutes at one time. Get up and walk around. Prolonged sitting is NOT advised. If you lay down, see if you can tolerate laying down on you front (belly side) 3. Walk for periods of 15 minutes = 1 mile but no longer; do it multiple times times each day. 4. Ice your low back after activity. POST OP WEEKS 3-6 1. Lifting limited to less than 20 pounds. 2. Do not sit for longer than 30 minutes at a time. Frequently change positions. Use a sit-to stand workstation or take frequent breaks from sitting if you have returned to work. 3. Walk for 30 minutes each day. If possible, do these three or more times a day POST OP WEEKS 6+ At your 6-week appointment we will give you a physical therapy referral to focus on a core stabilization and strengthening program. You should also work on leg & buttock strengthening, hamstring & quadriceps stretching, and continue a low impact aerobic activity program such as swimming, walking, or riding a stationary bicycle. During the initial 6 weeks after your surgery, you are at the highest risk of re-injuring your spine. You should generally avoid BLTs (bending, lifting and twisting combination motions) and follow the above guidelines to reduce the chance of reinjury. You can anticipate post op appointments in our office at approximately 3 weeks and 6 weeks after your surgery. INCISION CARE: If your incision is not draining you do NOT need to cover it with a dressing. Keep your incision clean, dry and intact. In most cases, we apply skin glue, pee or sutures to the incision at the time of surgery. This will be like a crust or have the appearance of a scab and will fall off in time on its own. The stitches or pee need to be removed at 3 weeks post op appointment. You may begin to shower 3 days after surgery (this allows the glue to russell well). However, please avoid scrubbing the incision site or peeling off any of the skin glue. This will ensure optimal healing of your incision. Also, during this time avoid soaking the incision area in water - this includes swimming pools, hot tubs or baths. No ointments, lotions or oils on the incision until your surgeon allows. Leave pee, sutures or glue in place. Neurological dysfunction that comes on suddenly can also be a sign of a stroke. Below some common symptoms of a stroke are listed: B - balance difficulty such as sudden onset walking or leaning to one side - NEW E - eye problem such as sudden double vision or trouble seeing on one side - NEW F - Facial weakness or numbness on one side - NEW A - Arm or leg weakness or numbness on one side - NEW S - Slurred speech or difficulty with word finding - NEW T - Time is BRAIN! Call 911 as soon as you recognize these symptoms Diet: Consume a regular diet rich in vegetables and lean protein such as chicken or fish. You should consume in a ratio of approximately 20% fats|40% carbohydrates|40%protein. Vegetables, sweet potatoes, brown rice or quinoa are examples of good carbohydrates. Chips, white bread, cookies and sweets/sugar are examples of bad carbohydrates. Limit your bad carbs, go wild with good car bs. 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 (1) Get Active. Physical activity can help people lose weight, control high blood pressure and cholesterol, feel emotionally better, and sleep better. (2) Control Cholesterol. Avoid a diet high in saturated fat, trans fat, & cholesterol. Limit whole milk & cream, ice cream, butter, egg yolks, processed meats (like sausage and hot dogs), and fatty meats. Choose healthy foods that are low in saturated fat, trans fat and cholesterol which include: Fruits and vegetables, fiber rich grain products (like whole grain pasta and brown rice), lean meat such as chicken, fish, nuts, seeds, and legumes. (3) Eat Better. Eat small portions. Shop at the grocery with a list and do not stray from it. Tips for a healthy diet include: Limit sodium intake to less than 1500mg daily, avoid prepackaged, processed, and fast foods, choose a diet rich in fruits, vegetables, and whole grain, high fiber foods, and limit saturated & cholesterol in your diet. (4) Manage Blood Pressure. If you have high blood pressure, you should have a cuff at home so that you can check your blood pressure regularly. Be sure you have a good cuff. An arm one is generally better than a wrist one. Bring the cuff to a doctor's appointment to validate that the measurements that your cuff are taking are accurate. Take your blood pressure twice daily when you are sitting down and relaxing. Record the numbers in a log and bring this log with you to your doctors' appointments. (5) Lose Weight if your BMI is above 25. A healthy BMI is between 19-25. To calculate Your BMI, you may use a Standard BMI Calculator on the NIH BMI website: <www.nhlbi.nih.gov/guidelines/obesity/BMI/bmicalc.htm>. Weigh oneself daily. If you are overweight, set a goal to lose weight. A pound a week loss if needed is a good target. (6) Reduce Blood Sugar. Limit foods and liquids with "added sugars." (Added sugars include sucrose, fructose, glucose, maltose, dextrose, high fructose corn syrup, corn syrup, concentrated fruit juice and honey). (7) Stop Smoking. If you smoke, quitting smoking is one of the best things that you can do for your health. Smoking increases your risk of heart attack, stroke, and peripheral vascular disease, which is a build-up of plaque in your arteries. Please discard all the cigarettes and lighters in your house. Have a plan for what you will do when you have the urge to smoke. Direct and second- hand smoke shortens your life as well as the lives of your family, friends and others around you. For your health and the health of those around you, please consider quitting! Proper Bending Body Mechanics: Maintain a wide stance with one foot slightly in front of the other. Keep your back straight. Bend utilizing the strength in your hips and knees. Do not bend at the waist. Maintain the lifted object at your waist-level close to your body. Avoid lifting weight that causes immediately pain or pain anywhere in the body afterwards. Smoking/Nicotine If there was ever one thing that you could do to increase your overall health, decrease your risk of cardiovascular problems by about 39% the second you make the choice, it is to STOP SMOKING. Your body's most instant gratification is the second you stop smoking. We have all heard the studies, read the articles but it is true, smoking is extremely bad for your overall health, and moreover it is detrimental to your bone health. Nicotine, IN ANY FORM, kills bone cells, prevents your body from healing fractures, and significantly prolongs healing after surgery. In spine surgery specifically, it increases your risk of not healing your bones to create a fusion and increases your risk of having a revision surgery due to this up to 60%. I know it is hard. I know it feels impossible. But there are ways. Take control of your life. We are here to help you through it. And when you are ready, ask us and we can direct you to help if you desire. Use the START Plan to Quit Smoking (please visit the Helpguide.org website listed below for more information): S = Set a quit date. Choose a date within the next 2 weeks, so you have enough time to prepare without losing your motivation to quit. If you mainly smoke at work, quit on the weekend, so you have a few days to adjust to the change. T = Tell family, friends, and co-workers that you plan to quit. Let your friends and family in on your plan to quit smoking and tell them you need their support and encouragement to stop. Look for a quit sandra who wants to stop smoking as well. You can help each other get through the rough times. A = Anticipate and plan for the challenges you'll face while quitting. Most people who begin smoking again do so within the first 3 months. You can help yourself make it through by preparing ahead for common challenges, such as nicotine withdrawal and cigarette cravings. R = Remove cigarettes and other tobacco products from your home, car, and work. Throw away all your cigarettes (no emergency pack!), lighters, ashtrays, and matches. Wash your clothes and freshen up anything that smells like smoke. S hampoo your car, clean your drapes and carpet, and steam your furniture. T = Talk to your doctor about getting help to quit. Your doctor can prescribe medication to help with withdrawal and suggest other alternatives. If you can't see a doctor, you can get many products over the counter at your local pharmacy or grocery store, including the nicotine patch, nicotine lozenges, and nicotine gum. Resources for Quitting Smoking: <https://www.[place].gov/documents/[facility]/Quit_Tobacco_Resources_for_patients_313 480_7.pdf> Supplementation: Take recommended dosages of Vitamin D and Calcium to help fortify your bones and help them to heal. See your health maintenance packet for dosages and recommended levels. DVT/VTE prophylaxis: You will be given compression stockings from the hospital. Wear these daily for the first two weeks after surgery. You may take them off at night. You may be prescribed a medication to help thin your blood. Take this as directed. If you are not prescribed this medication, early and frequent ambulation has been shown to be the best prophylaxis to deep vein thrombosis and sequelae related to this event. Discharge Disposition: HOME WITH HOME HEALTH SERVICES
[2024-02-25 13:42] VITALS: BP 124/76; TEMP 97.6
--- NOTE | 2024-02-29 03:38 | PN ---
PROGRESS NOTE DATE OF SERVICE: 02/25/2024 CHIEF COMPLAINT: Spinal stenosis. HISTORY OF PRESENT ILLNESS: This lady is doing a little bit better and is having much less pain. She will probably go home today. PHYSICAL EXAMINATION: VITAL SIGNS: Normal. She is not febrile. CHEST: Clear. CARDIAC: Normal. ABDOMEN: Soft, nontender. IMPRESSION: Status post LS spine laminectomy and fusion. PLAN: Possibly home today. MMODL / IJN: [id number] /
== END 2024-02-25 14:11 | disposition home health service (06) | DRG 304 ==
LOC: 2ORMAIN 05:45 → 4SSUR 11:42
PROVIDERS: ADMIT Orthopaedic Surgery; ATTEND Orthopaedic Surgery
PROC: 0SG0071 Fusion of Lumbar Vertebral Joint with Autologous Tissue Substitute, Posterior Approach, Posterior Column, Open Approach (ICD-10-PCS; 2024-02-23)
PROC: 01NB0ZZ Release Lumbar Nerve, Open Approach (ICD-10-PCS; 2024-02-23)
PROC: 0SP004Z Removal of Internal Fixation Device from Lumbar Vertebral Joint, Open Approach (ICD-10-PCS; 2024-02-23)
PROC: 0SG00AJ Fusion of Lumbar Vertebral Joint with Interbody Fusion Device, Posterior Approach, Anterior Column, Open Approach (ICD-10-PCS; principal; 2024-02-23 07:30)
DX: M43.16 Spondylolisthesis, lumbar region (principal); I10 Essential (primary) hypertension; E78.5 Hyperlipidemia, unspecified; M96.0 Pseudarthrosis after fusion or arthrodesis; M48.062 Spinal stenosis, lumbar region with neurogenic claudication; M51.16 Intervertebral disc disorders with radiculopathy, lumbar region; M47.817 Spondylosis without myelopathy or radiculopathy, lumbosacral region; M62.838 Other muscle spasm; G47.8 Other sleep disorders; M25.78 Osteophyte, vertebrae; F17.210 Nicotine dependence, cigarettes, uncomplicated; M51.37 Other intervertebral disc degeneration, lumbosacral region; W18.39XA Other fall on same level, initial encounter; Z85.841 Personal history of malignant neoplasm of brain; Z85.3 Personal history of malignant neoplasm of breast; Z79.899 Other long term (current) drug therapy; Z91.041 Radiographic dye allergy status; Z91.013 Allergy to seafood; Z88.8 Allergy status to other drugs, medicaments and biological substances
CPT/HCPCS: 72100; 72131; 80048; 85025; 85610